=== PATIENT | male | born 1975 | race Caucasian/White ===

== ENCOUNTER 2022-03-12 15:16 | Emergency (ER) | payer OTHER, SELFPAY ==
--- NOTE | ~2022-03-12 | XR_ITS ---
XR chest 1V portable DATE: 03/12/2022 16:20 INDICATION: Fever. Weakness. TECHNIQUE: Portable AP chest on 03/12/2022 at 1621 hours COMPARISON: None FINDINGS: Heart size is within normal range. No pulmonary infiltrate or consolidation, pleural effusi on or pulmonary vascular congestion or pneumothorax. Included skeletal structures are unremarkable. IMPRESSION: No active cardiopulmonary disease Reviewed, dictated and finalized at location A.
[2022-03-12 15:25] VITALS: BP 129/84; PULSE 100; RESP 18; TEMP 37.2; O2SAT 97
--- NOTE | 2022-03-12 15:28 | ED.FEVER ---
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/hypertension, secondary hyperparathyroidism, chronic anemia, thyroid nodule,dyslipidemia was sent by his Delivery Director for evaluation of -- fever with chills for 1 day -- nausea 2 episodes of vomiting today MD elicited complaint: fever and malaise Onset (ago): hour(s) ( started 8 hours ago) Measured temperature: 98.9 C Exacerbating factors: nothing Relieving factors: nothing Associated symptoms: denies other symptoms, chills, nausea and vomiting Treatments prior to arrival fever: none Related Data Home Medications Medication Instructions Recorded Confirmed atenolol 25 mg PO DAILY 03/12/22 03/12/22 atorvastatin 20 mg PO DAILY 03/12/22 03/12/22 calcitriol 0.25 mcg PO DAILY 03/12/22 03/12/22 nifedipine 60 mg PO DAILY 03/12/22 03/12/22 tamsulosin 0.4 mg PO HS 03/12/22 03/12/22 Allergies Allergy/AdvReac Type Severity Reaction Status Date / Time No Known Allergies Allergy Verified 03/12/22 15:45 Review of Systems Review of Systems: All systems reviewed & are unremarkable except as noted in HPI and below Constitutional: Constitutional: Reports as per HPI and Reports no additional constitutional complaints Eyes: Eyes: Reports as per HPI and Reports no additional eye complaints ENT: Reports system reviewed and no additional complaints, except as documented and Reports as per HPI Cardiovascular: Cardiovascular: Reports as per HPI and Reports no additional cardiovascular complaints Respiratory: Respiratory: Reports as per HPI and Reports no additional respiratory complaints Gastrointestinal: Gastrointestinal: Reports as per HPI and Reports no additional gastrointestinal complaints Genitourinary: Genitourinary: Reports no additional male genitourinary complaints and Reports as per HPI Musculoskeletal: Musculoskeletal: Reports no additional musculoskeletal complaints and Reports as per HPI Comments: history of muscle spasms especially of the right leg Integumentary/Breasts: Skin/Breast: Reports system reviewed and no additional complaints, except as docu and Reports as per HPI Neurologic: Reports system reviewed and no additional complaints, except as documented and Reports as per HPI Psychiatric: Psychiatric: Reports no additional psychiatric complaints and Reports as per HPI Endocrine: Endocrine: Reports no additional endocrine complaints and Reports as per HPI Hematologic/Lymphatic: Hematologic/Lymphatic: Reports no additional hematologic/lymphatic complaints and Reports as per HPI Allergic/Immunologic: Allergic/Immunologic: Reports no additional allergic/immunologic complaints and Reports as per HPI [facility] Past Medical History Medical History (Updated 03/12/22 @ 17:27 by Allan Mckeon MD) Chronic anemia CKD (chronic kidney disease) Diabetes Dyslipidemia Hypertension Secondary hyperparathyroidism Thyroid nodule Surgical History Surgical History (Updated 03/12/22 @ 15:57 by Allan Mckeon MD) H/O knee surgery Exam Const: General: no acute distress and alert Orientation/consciousness: patient oriented x3 HENMT: Head: normal to inspection Ears: external ears normal and TM abnormal Face and sinus: sinuses nontender Mouth: Yes Normal oral and palatal mucosa present Eyes: Conjunctivae: conjunctivae normal Pupils: Equal, round and reactive pupils present EOM: EOMs intact bilaterally Neck: Neck: normal visual inspection, no lymphadenopathy and no meningeal signs Chest: Chest palpation & inspection: normal inspection of the chest Resp: Effort & Inspection: normal respiratory effort Auscultation: clear to auscultation bilaterally Cardio: Rate: regular rate Rhythm: regular rhythm GI: GI Palp:
--- NOTE | 2022-03-12 16:07 | ECG_ITS ---
Measurements Intervals [place] Rate: 87 P: 57 NH: 212 QRS: 3 QRSD: 91 T: 25 QT: 348 QTc: 420 Interpretive Statements SINUS RHYTHM WITH FIRST DEGREE AV BLOCK NONSPECIFIC T-WAVE ABNORMALITY NO PREVIOUS ECG AVAILABLE FOR COMPARISON Electronically Signed On 03-12-2022 20:09:20 CDT by Maddy Jacobs M.D.
[2022-03-12] MEDS: ACETAMINOPHEN 325 MG TABLET 650 MG PO (16:29)
[2022-03-12] MEDS: ONDANSETRON HCL ODT 4 MG TABLET PO (16:29)
[2022-03-12 16:33] LABS: Add Urine Microscopic? YES; Appearance Urine Clear (Clear); Basophils Absolute Auto 0.03 K/mm3 (0.00-0.10); Basophils Percent Auto 0.2 % (0.0-1.0); Bilirubin Urine Negative (Negative); Blood Urine 1+ (Negative); Color Urine Light Yellow (Yellow); Eosinophils Absolute Auto 0.05 K/mm3 (0.02-0.50); Eosinophils Percent Auto 0.4 % (1.0-6.0); Glucose Urine UA Trace (Negative); Hematocrit 37.2 % (40.0-54.0); Hemoglobin 12.5 g/dL (14.0-18.0); Immature Granulocyte Absolute 0.05 K/mm3 (0.00-0.00); Immature Granulocyte Percent A 0.4 % (0.0-0.0); Ketones Urine Negative (Negative); Leukocyte Esterase Ur Negative (Negative); Lymphocytes Absolute Auto 0.23 K/mm3 (1.10-4.50); Lymphocytes Percent Auto 1.7 % (18.0-42.0); Mean Corpuscular HGB Conc 33.6 g/dL (32.0-36.0); Mean Corpuscular Volume 89.2 fL (78.0-102.0); Mean Platelet Volume 10.6 fl (8.7-11.0); Monocytes Absolute Auto 0.57 K/mm3 (0.10-0.90); Monocytes Percent Auto 4.3 % (2.0-11.0); Neutrophils Absolute Auto 12.3 K/mm3 (1.7-7.2); Nitrate Urine Negative (Negative); Platelet Count Result 300 K/mm3 (150-420); Protein Urine Trace (Negative); Red Blood Count 4.17 M/mm3 (4.70-6.10); Red Cell Distribution Width 12.8 % (11.6-14.4); Specific Grav Ur 1.015 (1.010-1.020); Urobilinogen Urine 0.2 mg/dL (0.2-1.0); White Blood Count 13.3 K/mm3 (4.8-10.8)
[2022-03-12 16:39] LABS: Bacteria Urine Trace /hpf; RBC Urine 0-2 /hpf (0-2); Squamous Epithelial Cell Urine Rare /hpf (Few); WBC Urine None seen /hpf (0-3)
[2022-03-12 16:48] LABS: Alanine Aminotransferase 25 U/L (16-63); Albumin Level 4.1 g/dL (3.4-5.0); Alkaline Phosphatase 90 U/L (46-116); Anion Gap 13 mmol/L (8-16); Aspartate Amino Transferase 15 U/L (15-37); Bilirubin,Total 0.4 mg/dL (0.00-1.00); Blood Urea Nitrogen 57 mg/dL (7-18); Carbon Dioxide 20 mmol/L (21-32); Chloride 103 mmol/L (98-108); Estimated CRCL calculation 25 ml/min; Estimated Glomerular Filt Rate 23; Glucose 168 mg/dL (70-99); Lipase 127 U/L (73-393); Osmolality Calculated 301 mOsm/kg (285-295); Potassium 4.3 mmol/L (3.5-5.1); Sodium 136 mmol/L (136-145); Total Protein 7.9 g/dL (6.4-8.2); Troponin I 22.2 ng/L (0.00-60.4)
[2022-03-12 16:55] LABS: Calcium 8.3 mg/dL (8.5-10.1)
[2022-03-12 17:00] VITALS: BP 125/71; PULSE 89; RESP 18; TEMP 36.6; O2SAT 99
[2022-03-12 17:05] LABS: SARS-CoV-2 RNA PCR Negative (Negative)
[2022-03-12 17:07] LABS: Influenza A QL RT-PCR Negative (Negative); Influenza B QL RT-PCR Negative (Negative)
== END 2022-03-12 17:38 | disposition home or self-care (01) ==
PROVIDERS: Emergency Provider Internal Medicine Critical Care Medicine; PCP Physician Assistant
DX: E86.0 Dehydration (principal); N17.9 Acute kidney failure, unspecified; R11.2 Nausea with vomiting, unspecified; Z20.822 Contact with and (suspected) exposure to COVID-19
CPT/HCPCS: 36415; 71045; 80053; 81001; 83605; 83690; 84484; 85025; 87040; 87502; 93005; 99283; A9270; C9803; U0003; U0005

== ENCOUNTER 2025-04-04 07:11 | Outpatient (CLI) | payer OTHER, MEDICARE, SELFPAY ==
--- NOTE | ~2025-04-04 | PE_ITS ---
EXAMINATION: PET_PETPSMAST_PT DATE: 04/04/2025 10:04 INDICATION: Prostate cancer TECHNIQUE: 4.946 mCi of Illucix Ga-68([id number]) was administered i.v. Low dose computed robert graphy (CT) images were acquired from the base of the brain to the base of the brain to the proximal thighs for attenuation correction and anatomic localization. Positron emission tomography (PET) image s were acquired in the same distribution beginning 81 minutes after injection. Images including fused PET/CT images were reconstructed in axial, coronal, and sagittal planes. Automated exposure control technique was employed. The dose-length product was 1127.21mGy-cm. COMPARISON: None FINDINGS: Head/neck: Typical pattern of symmetric physiologic increased activity in the lacrimal, parotid and submandibula r glands as well as along the mucosa of the nasal and oral cavities, pharynx and hypopharynx. No path ologically enlarged cervical lymphadenopathy or suspicious foci of increased uptake in the visualized head or neck. Chest: Respiratory motion in the lungs with scattered discoid atelectasis in both lungs. No suspicious pulmo nary nodules, pneumonia, pulmonary edema or pleural effusion. Mild cardiomegaly.. Atherosclerotic cor onary artery calcifications. No pericardial effusion. Retroesophageal aberrant right subclavian arter y. No pathologically enlarged or PSMA avid thoracic lymphadenopathy. Abdomen/pelvis/proximal thighs: Physiologic renal accumulation and excretion of activity in the kidneys, bladder and along portions o f ureters. Photopenic defect associated with a 1.5 cm exophytic cyst at the lower pole of the right k idney. 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 There are a few additio nal photopenic defects in the transplant kidney which could be related to additional cysts or prior s carring. Prostatomegaly measuring 4.9 x 4.2 cm. There is mild uptake at the posterior aspect of the p rostate with maximal SUV of 4.3. Normal degree and slightly heterogenous pattern of increased uptake throughout the liver and spleen without radiologic correlate or dominant PSMA avid lesion. The gallbl adder, pancreas and bilateral adrenal glands are normal. Moderate uptake scattered throughout the bow els with typical duodenal and proximal jejunal predominance and without radiologic correlate, also li carolyn physiologic. Normal appendix. No other abnormal foci of increased uptake or pathologically enlar ged lymphadenopathy in the abdomen, pelvis or proximal thighs. Musculoskeletal: No suspicious lytic, blastic or abnormally PSMA avid bone lesions. IMPRESSION: 1. Mild activity in the posterior aspect of the enlarged prostate likely representing the site of marcus boaz prostate cancer. No evident metastatic disease. 2. 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 Reviewed, dictated and finalized at location A. IMPRESSION: 1. Mild activity in the posterior aspect of the enlarged prostate likely repres enting the site of primary prostate cancer. No evident metastatic disease. 2. 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
--- OUTSIDE RECORDS SUMMARY | 2025-04-04 07:16 | XMS_ITS | Clinical Summary ---
Author Organization [facility] Address [address] [place] [address] Phone Care Team Providers Care [place] Actor Name Role Phone Edi Ash Primary Care Provider [phone] Social History Tobacco Use Types Packs/Day Years Used Date Smoking Tobacco: Never Assessed Sex and Gender Information Value Date Recorded Sex Assigned at Not on file Legal Sex Male 9:20 PM CDT Gender Identity Not on file Sexual Orientation Not on file Plan of Treatment Health Maintenance Due Date Last Done Comments Hepatitis C Virus (HCV) Screening 1973 TdaP Immunization 1973 Hepatitis B Immunization (1 of 3 - 19+ 3-dose series) 1992 Colonoscopy 2018 Colorectal Cancer Screening 2018 Cologuard 2023 Immunochemical Fecal Occult Blood 2023 Pneumococcal Immunization (5 0+ years) (1 of 1 - PCV) 2023 Zoster Immunization (1 of 2) 2023 Influenza Immunization (#1) 2024 SARS-COV-2 Immunization (3 - 2023-25 season) 2024 03/15/2021, 02/15/2021 Respiratory Syncytial Virus (RSV) Immunization (Adult) (1 - 1-dose 75+ series) 2048 Meningococcal Immunization (ACWY) Aged Out No longer eligible b ased on patient's age to complete this topic Rotavirus Immunization Aged Out No lo nger eligible based on patient's age to complete this topic Care Teams [place] Actor Relationship Specialty Start Date End Date Edi Ash PAC [address] [place] [id number] PCP - General Physician Machinist Wood 10/09/21
--- OUTSIDE RECORDS SUMMARY | 2025-04-04 07:17 | XMS_ITS | Encounter Summary ---
Author Organization [facility] Address [address] [place] [address] Phone Care Team Providers Care Electrician Supervisor Name Role Phone Edi Ash Primary Care Provider [phone] Encounter Details Date Type Department Care Team (Late st Contact Info) Description 10/08/2021 Transcribe Orders [facility] Central Scheduling [address] [place] [address] Param Pennington MD [address] [place] [address] [address] Social History Tobacco Use Types Packs/Day Years Used Date Smoking Tobacco: Never Assessed Sex and Gender Information Value Date Recorded Sex Assigned at Not on file Legal Sex Male 9:20 PM CDT Gender Identity Not on file Sexual Orientation Not on file documented as of this encounter Plan of Treatment Not on file documented as of this encounter Visit Diagnoses Not on filedocumented in this encounter Care Teams Electrician Supervisor Relationship Specialty Start Date End Date Edi Ash PAC [address] [place] [id number] PCP - General Physician Wellness Coordinator 10/09/21 documented as of this encounter
--- OUTSIDE RECORDS SUMMARY | 2025-04-04 07:17 | XMS_ITS | Clinical Summary ---
Author Organization [facility] Building [address] Address [address] [place] [address] Care Team Providers Care Agent Contract Clerk Name Role Phone Edi Ash Primary Care Provider [phone] Jonathan Meyer MD Unavailable [phone] Claudia Rahman RN Unavailable Unava ilable Allergies Active Allergy Reactions Criticality Noted Date Comments Cephalexin Rash,Chills Medium 08/25/2023 Per mother, found out when he had transplant Penicillins Rash Medium Per mother, happened when patient was an Medications tamsulosin (FLOMAX) 0.4 mg extended release capsule TAKE ONE CAPSULE BY MOUTH EVERY DAY WITH DINNER 30 capsule 3 Active Senna Plus 8.6-50 mg TAKE ONE TABLET BY MOUTH EVERY DAY 30 tablet 4 Active cholecalcifero l (VITAMIN D-3) 2000 unit tablet TAKE ONE TABLET BY MOUTH EVERY DAY 30 tablet 4 Active carvediloL (COREG) 6.25 mg tablet TAKE ONE TABLET BY MOUTH TWICE A DAY WITH MEALS 60 tablet 4 Active aspirin 81 mg enteric coated tablet TAKE ONE TABLET BY MOUTH EVERY DAY 30 tablet 4 Active NIFEdipine CC 60 mg 24 hr tabletIndicati ons:Kidney replaced by transplant TAKE 1 TABLET BY MOUTH 2 TIMES A DAY 60 tablet 4 Active predniSONE (DELTASONE) 5 mg tablet TAKE ONE TABLET BY MOUTH EVERY DAY. START AFTER TAPER 30 tablet 11 4 Active magnesium oxide (MAG-OX) 400 mg (241.3 mg elemental magnesium) tablet TAKE ONE TABLET BY MOUTH EVERY DAY 30 tablet 11 4 Active Envarsus XR 1 mg tablet extended release 24 hr TAKE TWO TABLETS BY MOUTH EVERY DAY 60 tablet 11 5 Active atorvastatin (LIPITOR) 20 mg tabletIndicati ons:Type 2 diabetes mellitus without complication, with long-term current use of insulin (HCC) TAKE ONE TABLET BY MOUTH EVERY DAY 90 tablet 3 5 Active ciprofloxacin (CIPRO) 500 mg tablet Take 1 tablet (500 mg total) by mouth 2 (two) times a day 6 tablet 5 Active Additional Information Patient not taking.Reported on 03/20/2025 clindamycin (CLEOCIN) 300 mg capsule Take 1 capsule (300 mg total) by mouth 2 (two) times a day 6 capsule 5 Active Additional Information Patient not taking.Reported on 03/20/2025 tirzepatide (Mounjaro) 5 mg/0.5 mL pen injector injectionIndic ations:type 2 diabetes mellitus Inject 0.5 mL (5 mg total) under the skin every 7 days For 4 doses and then increase to mounjaro 7.5mg weekly. E11.65 2 mL 5 Active tirzepatide (Mounjaro) 2.5 mg/0.5 mL pen injector injectionIndic ations:type 2 diabetes mellitus Inject 0.5 mL (2.5 mg total) under the skin every 7 days For 4 weeks. Then increase to mounjaro 5mg weekly. E11.65 2 mL 5 Active tirzepatide (MOUNJARO) 7.5 mg/0.5 mL pen injector injectionIndic ations:type 2 diabetes mellitus Inject 0.5 mL (7.5 mg total) under the skin every 7 days E11.65 2 mL 11 5 Active empagliflozin (JARDIANCE) 25 mg tabletIndicati ons:type 2 diabetes mellitus Take 1 tablet (25 mg total) by mouth daily E11.65 90 tablet 4 5 Active empagliflozin (JARDIANCE) 10 mg tabletIndicati ons:type 2 diabetes mellitus Take 1 tablet (10 mg total) by mouth daily E11.9 90 tablet 4 4 03/20/20 25 Discontin ued(Reord er) Active Problems Patient Care Coordination No te Formatting of this note migh t be different from the original. [facility]acy: 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 Weight gain since last office visit Encouraged healthy eating which includes a low carb diet. Avoiding processed foods, sweets and fried foods. Encouraged 30 minutes of walking at least 5 days per week Discussed that exercise can be broken down into small sessions- for example 2- 15 minutes sessions or 3- 10 minutes sessions. Assessment & Plan (07/06/2024 12:58 PM CDT): This is a chronic condition which continues Eight lbs. Weight loss since last office visit Encouraged healthy eating which includes a low carb diet. Avoiding processed foods, sweets and fried foods. Encouraged 30 minutes of walking at least 5 days per week Discussed that exercise can be broken down into small sessions- for example 2- 15 minutes sessions or 3- 10 minutes sessions. Assessment & Plan (03/17/2024 12:31 PM CDT): This is a chronic condition which continues Twenty lbs. Weight loss since last office visit Encouraged healthy eating which includes a low carb diet. Avoiding processed foods, sweets and fried foods. Encouraged 30 minutes of walking at least 5 days per week He has eating a keto diet to promote weight loss Assessment & Plan (12/17/2023 2:31 PM HAZARDOUS SUBSTANCES ENGINEER): This is a chronic condition which has improved 15 lb weight loss since last office visit Eating 3 meals 50 carbs each meal Encouraged continue healthy eating and exercise Kidney replaced by transplant 12/01/2023 Encounter for aftercare following kidney transpl ant 10/06/2023 Encounter for long-term (cur rent) use of high-risk medication 10/06/2023 Removal of staple 09/22/2023 Kidney transplanted 09/22/2023 Immunosuppression 09/22/2023 Kidney donor 07/10/2023 ESRD (end stage renal disease) 07/10/2023 Anemia 05/23/2021 Assessment & Plan (03/16/2023 3:14 PM CDT): This is a chronic condition which continues due to his stage 5 chronic kidney disease Not on dialysis Follows Dr. Pennington Latest Reference Range & Units 01/10/23 08:45 WBC 3.8 - 9.9 K/cumm 9.8 Hgb 13.0 - 17.5 g/dL 12.0 (L) Hct 38.9 - 50.3 % 35.8 (L) Plt 150 - 400 K/cumm 260 MPV 9.1 - 12.3 fL 10.5 RBC 4.30 - 5.80 M/cumm 4.09 (L) (L): Data is abnormally low Mixed diabetic hyperlipidemi a associated with type 2 diabetes mellitus 08/20/2020 Assessment & Plan (10/18/2024 9:09 AM HAZARDOUS SUBST[employer]ES ENGINEER): This is a chronic condition which is slightly elevated . Goal is LDL less than 70 Continue atorvastatin Encouraged to eat healthy, include fresh fruits and vegetables daily and avoid eating fried foods more than once per week. Assessment & Plan (07/06/2024 12:57 PM CDT): This is a chronic condition which is at goal . Goal is LDL less than 70 Continue atorvastatin Encouraged to eat healthy, include fresh fruits and vegetables daily and avoid eating fried foods more than once per week. Assessment & Plan (03/17/2024 12:30 PM CDT): This is a chronic condition which is not at goal . Goal is LDL less than 70 Continue atorvastatin Encouraged to eat healthy, include fresh fruits and vegetables daily and avoid eating fried foods more than once per week. Encouraged to take medications as prescribed. Assessment & Plan (12/17/2023 2:27 PM HAZARDOUS SUBSTANCES ENGINEER): This is a chronic condition which is at goal of LDL less than 70 Continue atorvastatin Encouraged to eat healthy, include fresh fruits and vegetables daily and avoid eating fried foods more than once per week. Encouraged to take medications as prescribed. Assessment & Plan (09/16/2023 3:12 PM CDT): This is a chronic condition which is not at goal of LDL less than 70 Continue atorvastatin Encouraged to eat healthy, include fresh fruits and vegetables daily and avoid eating fried foods more than once per week. Encouraged to take medications as prescribed. Assessment & Plan (06/16/2023 1:58 PM CDT): This is a chronic condition which is at goal of LDL less than 70 Continue atorvastatin Encouraged to eat healthy, include fresh fruits and vegetables daily and avoid eating fried foods more than once per week. Encouraged to take medications as prescribed. Assessment & Plan (03/16/2023 3:09 PM CDT): This is a chronic condition which is at goal of LDL less than 70 Continue atorvastatin Encouraged to eat healthy, include fresh fruits and vegetables daily and avoid eating fried foods more than once per week. Encouraged to take medications as prescribed. Assessment & Plan (12/16/2022 1:52 PM HAZARDOUS SUBSTANCES ENGINEER): This is a chronic condition which is at goal of less than 70. Personally reviewed lipid panel. LDL-67. contine atorvastatin 20 mg daily . Encouraged to eat healthy, include fresh fruits and vegetables daily and avoid eating fried foods more than once per week. Encouraged to take medications as prescribed. Assessment & Plan (09/15/2022 3:41 PM CDT): This is a chronic condition which is at goal. Goal is less than 70. Personally reviewed lipid panel. LDL-67contine atorvastatin 20 mg daily . Encouraged to eat healthy, include fresh fruits and vegetables daily and avoid eating fried foods more than once per week. Encouraged to take medications as prescribed. Assessment & Plan (05/23/2022 2:54 PM CDT): This is a chronic condition which is at goal. Goal is less than 70. Personally reviewed lipid panel. LDL-58 contine atorvastatin 20 mg daily . Encouraged to eat healthy, include fresh fruits and vegetables daily and avoid eating fried foods more than once per week. Encouraged to take medications as prescribed. Assessment & Plan (04/28/2022 4:31 PM CDT): LDL 58 4 months ago Continue home Lipitor Assessment & Plan (11/22/2021 9:33 AM HAZARDOUS SUBSTANCES ENGINEER): This is a chronic condition which is at goal. Goal is less than 70. Personally reviewed lipid panel. 49, LDL on atorvastatin 20 mg daily . Encouraged to eat healthy, include fresh fruits and vegetables daily and avoid eating fried foods more than once per week. Encouraged to take medications as prescribed. Repeat lipid panel. Assessment & Plan (05/22/2021 10:17 AM CDT): This is a chronic condition which is at goal. Goal is less than 70. Personally reviewed lipid panel. -at last visit, LDL did not register on POC testing. on atorvastatin 20 mg daily . Encouraged to eat healthy, include fresh fruits and vegetables daily and avoid eating fried foods more than once per week. Encouraged to take medications as prescribed. Repeat lipid panel. Assessment & Plan (02/13/2021 7:53 PM CDT): This is a chronic condition which is improving,below goal of less than 70 Reviewed labs. Encouraged to eat healthy, include fresh fruits and vegetables daily and avoid eating fried foods more than once per week. Personally reviewed LDL -did not register on POC testing. decrease atorvastatin 20 mg daily . Assessment & Plan (11/14/2020 6:00 PM HAZARDOUS SUBST[employer]ES ENGINEER): This is a chronic condition which is improving, but not at goal. Reviewed labs. Encouraged to eat healthy, include fresh fruits and vegetables daily and avoid eating fried foods more than once per week. Please take medications as prescribed. LDL - 156 (07/31/20), currently on atorvastatin 80 mg daily Continue to loose weight. Assessment & Plan (08/20/2020 12:56 PM CDT): This is a chronic condition which is stable, controlled, uncontrolled with hyperglycemia, improving, but not at goal. Reviewed labs. Encouraged to eat healthy, include fresh fruits and vegetables daily and avoid eating fried foods more than once per week. Please take medications as prescribed. LDL - 156 (07/31/20), currently on atorvastatin 80 mg daily Continue to loose weight. Type 2 diabetes mellitus wit hout complication, with long-term current use of insulin 12/07/2017 Assessment & Plan (10/18/2024 9:42 AM HAZARDOUS SUBSTANCES ENGINEER): This is a chronic condition which is at goal, without hypoglycemia . Goal is less than 7%. Personally reviewed most recent A1c - Lab Results Component Value Date HGBA1C 6.2 (H) 09/06/2024 Personally reviewed POC blood sugar- at goal of 80-180 Lab Results Component Value Date POCGLU 170 10/18/2024 Medication-none Monitor blood sugar 2 times a day. -may test more to help control eating Encouraged annual eye exam. Monofilament foot exam completed. Protective senses -intact eGFR- 78 Kidney function-normal. Post kidney transplant. Sibling donor Urine microalbumin/creatinine ratio - needed. Goal is <30 Continue carvedilol, nifedipine. not treated with KT/ARB Assessment & Plan (07/06/2024 12:56 PM CDT): This is a chronic condition which is at goal with hypoglycemia . Goal is less than 7%. Personally reviewed most recent A1c - Lab Results Component Value Date HGBA1C 6.1 07/06/2024 Personally reviewed POC blood sugar- at goal of 80-180 Lab Results Component Value Date POCGLU 104 07/06/2024 Medication- stop insulin Monitor blood sugar daily alternating am and pm. Encouraged annual eye exam. Monofilament foot exam completed. Protective senses intact. eGFR- 62 Kidney function-normal Urine microalbumin/creatinine ratio - at goal. Goal is <30 Continue carvedilol, nifedipine Assessment & Plan (03/17/2024 12:30 PM CDT): This is a chronic condition which is at goal . Goal is less than 7% with hypoglycemia. Personally reviewed most recent A1c - Lab Results Component Value Date HGBA1C 6.3 03/17/2024 Personally reviewed POC blood sugar- at goal of 80-180 Lab Results Component Value Date POCGLU 111 03/17/2024 Medication- decrease levemir 10 units daily pm. Will be switching to tresiba per his insurance formulary. Has 1 levemir pen left. Instructed to decrease tresiba to 8 units once he switches over due to the longer action time. Verbalized understanding. Monitor blood sugar 2-4 time times a daily Encouraged annual eye exam. Monofilament foot exam completed. Protective senses intact Personally reviewed CMP eGFR- 69 Kidney function-abnormal. Sees Dr. Pennington for Nephrology. Kidney transplant 09/01/ Urine microalbumin/creatinine ratio - at goal. Goal is <30 Continue carvedilol. not treated with KT/ARB B/P today- at goal . Goal is <140/90. continue carvedilol Assessment & Plan (12/17/2023 2:27 PM HAZARDOUS SUBST[employer]ES ENGINEER): This is a chronic condition which is at goal of less than 7%. Personally reviewed most recent A1c - Lab Results Component Value Date HGBA1C 6.3 12/17/2023 Personally reviewed POC blood sugar- at goal 80-180 Lab Results Component Value Date POCGLU 140 12/17/2023 Medication- Continue levemir 15 units daily Monitor blood sugar 4 times a day. Encouraged annual eye exam. Monofilament foot exam completed. protective senses intact Personally reviewed CMP eGFR-76 Kidney function- abnormal . Status post kidney transplant sees Dr. Pennington for Nephrology Urine microalbumin/creatinine ratio - not at goal <30 not treated with Kt or Arb, treated with nifedipine, carvedilol B/P today- at goal of <140/90. continue nifedipine, carvedilol Personally reviewed lipid panel. at Goal of less than 70. Continue atorvastatin Assessment & Plan (09/16/2023 3:14 PM CDT): This is a chronic condition which is adequately controlled improving , but not at goal of less than 7% as per fingerstick blood sugars. Currently weaning from prednisone as he is 2 weeks postop from a kidney transplant. Documented blood sugars are acceptable Discussed as prednisone continues to wean that blood sugars will improve. Insulin will have to be reduced. Sarkis has titrated insulin down before so he is aware. Encouraged him to call me for fluctuations in blood sugar. Discussed that in the end he may wind up off of insulin or possibly just on an oral medication. We will have to wait and see. He verbalized understanding Personally reviewed most recent A1c - Lab Results Component Value Date HGBA1C 9.4 (H) 07/13/2023 Personally reviewed POC blood sugar- not at goal 80-180 Lab Results Component Value Date POCGLU 100 09/16/2023 Medication- Continue continue levemir 20 units daily pm. Humalog 5 units prior to meals with correctional insulin- 150-199: 1 unit, 200-249: 2 units, 250-299: 3 units, 300-349: 4 units, 350 or greater: 5 units Monitor blood sugar 4 times a day. Encouraged annual eye exam. Monofilament foot exam completed. protective senses intact Personally reviewed CMP eGFR- 62- 2 weeks post kidney transplant Kidney function- abnormal Urine microalbumin/creatinine ratio - at goal <30 not treated with KT/ARB, treated with nifedipine and carvedilol B/P today- at goal of <140/90. continue nifedipine/carvedilol Personally reviewed lipid panel. Not at Goal of less than 70. Continue atorvastatin Assessment & Plan (06/16/2023 2:01 PM CDT): This is a chronic condition which is poorly controlled, not at goal of less than 7% due to lack of compliance with his insulin. Personally reviewed most recent A1c - Lab Results Component Value Date HGBA1C 9.3 06/16/2023 Personally reviewed POC blood sugar- at goal 80-180 Lab Results Component Value Date POCGLU 119 06/16/2023 Medication- Continue Levemir 15 units daily. Encouraged to take insulin as prescribed. Monitor blood sugar 2 times a day. Encouraged annual eye exam. Monofilament foot exam completed. protective senses intact Personally reviewed CMP eGFR- 23 Kidney function- abnormal - sees Dr. Pennington for Nephrology Urine microalbumin/creatinine ratio - at goal <30 not treated with Kt or Arb, treated with atenolol, hydrochlorothiazide, nifedipine B/P today- at goal of <140/90. continue atenolol, hydrochlorothiazide, nifedipine Personally reviewed lipid panel. at Goal of less than 70. Continue atorvastatin Assessment & Plan (03/16/2023 3:07 PM CDT): This is a chronic condition which is poorly controlled worsening not at goal of less than 7%. Personally reviewed most recent A1c - Lab Results Component Value Date HGBA1C 9.8 03/16/2023 Explained that hyperglycemia will only cause a faster progression of his kidney disease. Explained that he needs to get these blood sugars back under control. Personally reviewed POC blood sugar- not at goal 80-180 Lab Results Component Value Date POCGLU 316 03/16/2023 Medication-Increase Levemir 15 units a day Monitor blood sugar 2 times a day. Call blood sugars in 1 week Encouraged annual eye exam. Monofilament foot exam completed. protective senses intact Urine microalbumin/creatinine ratio - at goal <30 not treated with KT/ARB Personally reviewed CMP eGFR- 23 Kidney function- abnormal B/P today-at goal of <140/90. continue Nifedipine, hydrochlorothiazide, atenolol Personally reviewed lipid panel. at Goal of less than 70. Continue atorvastatin Assessment & Plan (12/16/2022 1:51 PM HAZARDOUS SUBST[employer]ES ENGINEER): This is a chronic condition which is worsening, inadequately controlled, not at goal. Personally reviewed A1c increased to 8.7%. Not at goal less than 7%. POC blood sugar- 138- at goal. Medication- increase levemir 12 units daily am. Monitor blood sugar daily- record results. 2 x daily and call blood sugars in 1 week. Encouraged annual eye exam. last dilated eye exam was at [facility]. Monofilament foot exam completed, protective senses intact. Urine microalbumin/creatinine ratio - <30, at goal of <30 normal. continue atenolol Personally reviewed labs:BUN-41 creatinine- 3.23 GFR-23 Kidney function-abnormal. Sees Dr. Pennington. B/P today- at goal <140/90. Continue Atenolol, HCTZ and nifedipine. Encouraged to monitor blood pressure daily. Personally reviewed LDL -67. below Goal of less than 70. Continue atorvastatin. No history of macrovascular disease - CVA, OR. Assessment & Plan (09/15/2022 3:40 PM CDT): This is a chronic condition which is not at goal. Personally reviewed A1c increased to 7.7% goal less than 7% without hypoglycemia. POC blood sugar- 109- at goal. Has not eaten today. Medication- start levemir 8 units daily am. Monitor blood sugar daily- record results. 2 x daily Encouraged annual eye exam. last dilated eye exam was at [facility]. Monofilament foot exam completed, protective senses intact. Urine microalbumin/creatinine ratio - <30, at goal of <30 normal. currently on atenolol 25mg daily am Personally reviewed labs:BUN-41 creatinine- 3.23 GFR-23 Kidney function-abnormal. Sees Dr. Pennington. B/P today- at goal. Continue Atenolol, HCTZ and nifedipine. At Goal blood pressure is <140/90. Encouraged to monitor blood pressure daily. Personally reviewed LDL -67. on atorvastatin 20 mg daily . below Goal of less than 70. No history of macrovascular disease - CVA, OR. Assessment & Plan (02/20/2022 9:00 AM CDT): This is a chronic condition which has increased But still below goal. Personally reviewed A1c 6.8% Below goal less than 7% without hypoglycemia. Personally reviewed blood sugar log- Medication- none Monitor blood sugar daily- record results. 1-2 x daily Encouraged annual eye exam. last dilated eye exam was April 2020 Monofilament foot exam completed, protective senses intact Urine microalbumin/creatinine ratio - <30, at goal of <30 normal. currently on atenolol 25mg daily am Personally reviewed labs:BUN-44, creatinine- 2.59 GFR- 28 Kidney function-abnormal. Sees Dr. Pennington. B/P today- 138/76 currently on atenolol. At Goal blood pressure is <140/90, Personally reviewed LDL -49. on atorvastatin 20 mg daily . below Goal of less than 70. Lab repeated. No history of macrovascular disease - CVA, OR. Assessment & Plan (11/22/2021 9:28 AM HAZARDOUS SUBSTANCES ENGINEER): This is a chronic condition which has increased But still below goal. Personally reviewed A1c 6.8% Below goal less than 7% without hypoglycemia. Personally reviewed blood sugar log- Medication- none Monitor blood sugar daily- record results. 1-2 x daily Encouraged annual eye exam. last dilated eye exam was April 2020 Monofilament foot exam completed, protective senses intact Urine microalbumin/creatinine ratio - <30, at goal of <30 normal. currently on atenolol 25mg daily am Personally reviewed labs:BUN-44, creatinine- 2.59 GFR- 28 Kidney function-abnormal. Sees Dr. Pennington. B/P today- 138/76 currently on atenolol. At Goal blood pressure is <140/90, Personally reviewed LDL -49. on atorvastatin 20 mg daily . below Goal of less than 70. Lab repeated. No history of macrovascular disease - CVA, OR. Assessment & Plan (05/22/2021 10:15 AM CDT): This is a chronic condition which is stable and below goal. Personally reviewed A1c 5.5% Below goal less than 7% without hypoglycemia. Personally reviewed blood sugar log- Medication- continue janumet 100mg/1000mg daily. Monitor blood sugar daily- record results. 1-2 x daily Encouraged annual eye exam. last dilated eye exam was April 2020 Monofilament foot exam completed, protective senses intact Urine microalbumin/creatinine ratio - <30, at goal of <30 normal. currently on lisinopril 40 mg daily, HCTZ 25, norvasc 5mg daily, Personally reviewed labs: (10/05) BUN-26, creatinine- 1.10 GFR- 80 Kidney function- normal B/P today- 116/60 currently on lisinopril, amlodipine and HCTZ. At Goal blood pressure is <140/90, Personally reviewed LDL -at last visit, LDL did not register on POC testing. on atorvastatin 20 mg daily . below Goal of less than 70 history of macrovascular disease - CVA, OR. Assessment & Plan (02/13/2021 7:52 PM CDT): This is a chronic condition which is improving, stable and below goal. Personally reviewed A1c 5.2% Below goal less than 7% without hypoglycemia. Personally reviewed blood sugar log- Much improved. blood sugar today at goal of 80-117 Medication- Stop Metformin 1000mg twice a day, start Januvia 100mg daily, Start janumet 100mg/1000mg daily. Monitor blood sugar daily- record results. Encouraged annual eye exam. last dilated eye exam was April 2020 Monofilament foot exam completed, protective senses intact Urine microalbumin/creatinine ratio - <30, at goal of <30 normal currently on lisinopril 20 mg daily, HCTZ 25, norvasc 5mg daily, Personally reviewed labs: BUN-26, creatinine- 1.10 GFR- 80 Kidney function- normal B/P today- 110/62, currently on lisinopril, amlodipine Goal blood pressure is <140/90, Personally reviewed LDL -did not register on POC testing. decrease atorvastatin 20 mg daily . below Goal of less than 70 history of macrovascular disease - CVA, OR. Assessment & Plan (11/14/2020 5:59 PM HAZARDOUS SUBST[employer]ES ENGINEER): This is a chronic condition which is uncontrolled with hyperglycemia, improving, but not at goal. Personally reviewed A1c 7.9% goal less than 7% Personally reviewed blood sugar log- Much improved. blood sugar today at goal of 80-180 Medication- Metformin 1000mg twice a day, start Januvia 100mg daily Add B complex vitamin with B3, B6, and B12 - for foot pain Monitor blood sugar daily- record results. Encouraged annual eye exam. last dilated eye exam was April 2020 Monofilament foot exam completed, protective senses intact Urine microalbumin/creatinine ratio - <30, at goal of <30 normal currently on lisinopril 20 mg daily, HCTZ 25, norvasc 5mg daily, Personally reviewed labs: BUN-26, creatinine- 1.10 GFR- 80 Kidney function- normal B/P today- 118/62, currently on lisinopril, amlodipine Goal blood pressure is <140/90, Personally reviewed LDL - 58, currently on atorvastatin 80 mg daily . Goal of less than 70 history of macrovascular disease - CVA, OR. 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 Personally reviewed A1c from 08/05- 12.2% goal less than 7% Personally reviewed blood sugar log- Much improved. Medication- Decrease lantus 10 units daily Continue Metformin 500mg in am and take 500 mg in pm for 1 week In one week, take Metformin 1000mg in and 500 mg in the pm for 1 week Then take Metformin 1000mg in am and 1000mg in pm Add B complex vitamin with B3, B6, and B12 - for foot pain Monitor blood sugar daily- record results. Encouraged annual eye exam. last dilated eye exam was April 2020 Monofilament foot exam completed, protective senses intact Abnormal Urine microalbumin/creatinine ratio - 80. Will repeat at next visit. currently on lisinopril 20 mg daily, HCTZ 25, norvasc 5mg daily, Personally reviewed labs: BUN-26, creatinine- 1.10 GFR- 80 Kidney function- normal B/P today- 110/60, currently on lisinopril, amlodipine Goal blood pressure is <140/90, long-term blood pressure goal is to be as close to 120/80 as possible. Personally reviewed LDL - 58, currently on atorvastatin 80 mg daily . Goal of less than 70 history of macrovascular disease - CVA, OR. Assessment & Plan (08/20/2020 1:10 PM CDT): This is a chronic condition which is improving. Labs reviewed. A1c 12.2 08/14/2020, 07/30/2020- 12.5 Medication- Continue Lantus 15 units daily. Stop Humalog insulin. Will continue insulin for now due to excessively high A1c, Return to office in 6 weeks. Repeat CMP prior to appt. We will consider returning to oral medications if kidney function is stable. Blood sugars in good range now. Monitor blood sugar 2 times a day. last dilated eye exam was completed in [facility], 2 weeks ago. Monofilament foot exam completed, protective senses intact Urine microalbumin/creatinine ratio - abnormal currently lisinopril 20 mg daily 08/07/2020 Kidney function eGRF- 64, BUN- 23, creatinine- 1.321 BP today- 130/82 , currently on lisinopril 20 mg po daily, amlodipine 5mg po daily LDL - 156 (07/31/20), currently on atorvastatin 80 mg daily No history of macrovascular disease - CVA, OR. Continue on 60 gm/meal low carb diet Continue to loose weight. Assessment & Plan (08/20/2020 12:49 PM CDT): This is a chronic condition which is improving. Labs reviewed. A1c 12.2 08/14/2020, 07/30/2020- 12.5 Medication- Continue Lantus 15 units daily. Stop Humalog insulin. Will continue insulin for now due to excessively high A1c, Return to office in 6 weeks. Repeat CMP prior to appt. We will consider returning to oral medications. Blood sugars in good range now. Monitor blood sugar 2 times a day. last dilated eye exam was completed in [facility], 2 weeks ago. Monofilament foot exam completed, protective senses intact Urine microalbumin/creatinine ratio - abnormal currently lisinopril 20 mg daily 08/07/2020 Kidney function eGRF- 64, BUN- 23, creatinine- 1.321 BP today- 130/82 , currently on lisinopril 20 mg po daily LDL - 156 (07/31/20), currently on atorvastatin 80 mg daily No history of macrovascular disease - CVA, OR. Assessment & Plan (08/07/2020 12:19 PM CDT): Glucose 201 on presentation to ER but glucose levels now improved. Will continue home Lantus with sliding scale insulin as needed. Hold home metformin due to elevated creatinine. Will adjust treatment as needed. 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 Goal is less than 140/90 Continue carvedilol, nifedipine Encouraged to monitor weight and B/P at home. Assessment & Plan (07/06/2024 12:57 PM CDT): This is a chronic condition which is at goal. Goal is less than 140/90 Continue nifedipine, carvedilol Encouraged to monitor weight and B/P at home. Encouraged to void caffeine and excessive alcohol consumption as this will elevate B/P Assessment & Plan (03/17/2024 12:31 PM CDT): This is a chronic condition which is at goal. Goal is less than 140/90 Personally reviewed labs. Continue carvedilol Encouraged to monitor weight and B/P at home Encouraged to take medications as prescribed. Assessment & Plan (12/17/2023 2:28 PM HAZARDOUS SUBSTANCES ENGINEER): This is a chronic condition which is at goal of less than 140/90 Personally reviewed labs. Continue carvedilol, nifedipine Encouraged to monitor weight and B/P at home Encouraged to take medications as prescribed. Assessment & Plan (09/16/2023 3:12 PM CDT): This is a chronic condition which is at goal of less than 140/90 Personally reviewed labs. Continue nifedipine and carvedilol Encouraged to monitor weight and B/P at home Encouraged to take medications as prescribed. Assessment & Plan (06/16/2023 1:58 PM CDT): This is a chronic condition which is at goal of less than 140/90 Personally reviewed labs. Continue atenolol, hydrochlorothiazide, nifedipine Encouraged to monitor weight and B/P at home Encouraged to take medications as prescribed. Assessment & Plan (03/16/2023 3:08 PM CDT): This is a chronic condition which is at goal of less than 140/90 Personally reviewed labs. Continue nifedipine, hydrochlorothiazide, atenolol Encouraged to void caffeine and excessive alcohol consumption as this will elevate B/P Encouraged to monitor weight and B/P at home Explained correct way to take blood pressure. - After 5 minutes of sitting calmly with arm supported. Encouraged to take medications as prescribed. Assessment & Plan (12/16/2022 1:51 PM HAZARDOUS SUBST[employer]ES ENGINEER): This is a chronic condition which is at goal of less than 140/90 Personally reviewed labs. Continue on atenolol, HCTZ, nifedipine. Encouraged to void caffeine and excessive alcohol consumption as this will elevate B/P Encouraged to monitor weight and B/P at home Explained correct way to take blood pressure. - After 5 minutes of sitting calmly with arm supported. Encouraged to take medications as prescribed. Assessment & Plan (09/15/2022 3:41 PM CDT): This is a chronic condition which is at goal Personally reviewed labs. Continue on atenolol, HCTZ, nifedipine. Encouraged to void caffeine and excessive alcohol consumption as this will elevate B/P Encouraged to monitor weight and B/P at home Explained correct way to take blood pressure. - After 5 minutes of sitting calmly with arm supported. Encouraged to take medications as prescribed. Assessment & Plan (04/28/2022 4:30 PM CDT): Home med Nifedipine and atenolol have been resumed HCTZ is on hold as pt is on iv fluids BP is wnl at this time, continue to monitor Assessment & Plan (11/22/2021 9:32 AM HAZARDOUS SUBSTANCES ENGINEER): This is a chronic condition which is at goal Goal is <140/90 Personally reviewed labs. B/P today- 138/76 currently on atenolo. At Goal blood pressure is <140/90, Avoid caffeine, caffeine will raise blood pressure and excessive alcohol consumption. Monitor your weight and B/P. Encouraged to take medications as prescribed. Assessment & Plan (05/22/2021 10:16 AM CDT): This is a chronic condition which is at goal Goal is <140/90 Personally reviewed labs. B/P today- 116/60 currently on lisinopril, amlodipine and HCTZ. At Goal blood pressure is <140/90, Avoid caffeine, caffeine will raise blood pressure and excessive alcohol consumption. Monitor your weight and B/P. Encouraged to take medications as prescribed. Assessment & Plan (11/14/2020 6:01 PM HAZARDOUS SUBST[employer]ES ENGINEER): This is a chronic condition and is stable, controlled, at goal. Goal is less than 140/90. Reviewed labs. Avoid caffeine, caffeine will raise blood pressure and excessive alcohol consumption. Monitor your weight and B/P. Please take medications as prescribed. BP today- 118/62 , currently on lisinopril 20 mg po daily, amlodipine 5mg po daily Assessment & Plan (08/20/2020 1:09 PM CDT): This is a chronic condition and is stable, controlled, at goal. Reviewed labs. Avoid caffeine, caffeine will raise blood pressure and excessive alcohol consumption. Monitor your weight and B/P. Please take medications as prescribed. BP today- 130/82 , currently on lisinopril 20 mg po daily, amlodipine 5mg po daily Assessment & Plan (08/07/2020 12:20 PM CDT): Blood pressure presently stable but will need to hold home HCTZ and lisinopril given creatinine level. If blood pressure increases, will need other medication and could start medications such as amlodipine. Resolved Problems Problem Noted Date Diagnosed Date Resolved Date Screening for colon cancer 07/11/2022 0 03/16/2023 Overview (07/11/2022): Added automatically from request for surgery [id number] COVID-19 04/27/2022 03/16/2023 Assessment & Plan (04/28/2022 4:28 PM CDT): Pt noted with fevers, no hypoxia noted CXR negative for infiltrates Will check inflammatory markers Continue supportive management with tylenol Contact precautions per hospital protocol Type 2 diabetes mellitus wit h ESRD (end-stage renal disease) 02/20/2022 09/15/2022 Assessment & Plan (05/23/2022 2:54 PM CDT): This is a chronic condition which is not at goal. Personally reviewed A1c increased to 7.4% goal less than 7% without hypoglycemia. POC blood sugar- 189- not at goal Medication- add sitagliptin 25 mg (renal dose) po daily Monitor blood sugar daily- record results. 1-2 x daily Encouraged annual eye exam. last dilated eye exam was April 2020 Monofilament foot exam completed, protective senses intact. Discussed diabetic foot care. Referred to [facility] for foot care. Nail fungus noted. Urine microalbumin/creatinine ratio - <30, at goal of <30 normal. currently on atenolol 25mg daily am Personally reviewed labs:BUN-57, creatinine- 3.05 GFR- 24 Kidney function-abnormal. Sees Dr. Pennington. B/P today- 142/72 currently on atenolol and nifedipine. At Goal blood pressure is <140/90, encouraged to contact Dr. Pennington regarding blood pressure. Encouraged to monitor blood pressure daily. Reviewed proper way to take b/p. Personally reviewed LDL -58. on atorvastatin 20 mg daily . below Goal of less than 70. No history of macrovascular disease - CVA, OR. Assessment & Plan (02/20/2022 12:05 PM CDT): This is a chronic condition which is below goal. Personally reviewed A1c 6.7% Below goal less than 7% without hypoglycemia. Personally reviewed blood sugar log- Medication- none Monitor blood sugar daily- record results. 1-2 x daily Encouraged annual eye exam. last dilated eye exam was April 2020 Monofilament foot exam completed, protective senses intact. Discussed diabetic foot care. Referred to [facility] for foot care. Nail fungus noted. Urine microalbumin/creatinine ratio - <30, at goal of <30 normal. currently on atenolol 25mg daily am Personally reviewed labs:BUN-39, creatinine- 2.67/2.75 GFR- 28/29 Kidney function-abnormal. Sees Dr. Pennington. B/P today- 164/84 currently on atenolol and nifedipine. Not At Goal blood pressure is <140/90, encouraged to contact Dr. Pennington regarding blood pressure. Encouraged to monitor blood pressure daily. Reviewed proper way to take b/p. Personally reviewed LDL -58. on atorvastatin 20 mg daily . below Goal of less than 70. No history of macrovascular disease - CVA, OR. Hyperkalemia 05/23/2021 03/16/2023 Diabetes mellitus due to und erlying condition, controlled 05/23/2021 02/20/2022 Urinary retention 05/23/2021 03/16/2023 Thyroid enlargement 05/22/2021 09/15/20 Assessment & Plan (09/15/2022 3:40 PM CDT): Problem resolved. Assessment & Plan (02/20/2022 12:07 PM CDT): This is a chronic condition which is stable, at goal. Will continue to monitor Goal is for TSH to be between 0.3 to 4.2 mclUnits/ml. Personally reviewed lab. Last TSH- 1.16 REASON FOR STUDY: Thyroid nodule /Thyroid enlargement. TECHNIQUE: Ultrasound of the thyroid was performed with grayscale and color doppler. COMPARISON: 06/20/2021 FINDINGS: Right edd thyroid: 5.3 x 1.7 x 2.4 cm in size. Left edd thyroid: 4.9 x 2.3 x 2.2 cm in size. Isthmus: 6 mm in thickness. Thyroid nodules: There is a predominantly solid isoechoic nodule with small cystic spaces measuring 8 x 5 x 5 mm seen in the mid aspect of the right edd thyroid on image 9 of 31. TR 3. It does not meet criteria for biopsy or follow-up. The previously described 2.4 cm nodule in the inferior aspect of the right edd thyroid is not visualized and may have represented artifact. No nodules meet criteria for biopsy. Thyroid appearance and vascularity: Normal echogenicity and vascularity IMPRESSION: 1. The previously described nodule in the right edd thyroid is not visualized and was likely artifactual. No suspicious thyroid nodule identified. Assessment & Plan (11/22/2021 9:32 AM HAZARDOUS SUBSTANCES ENGINEER): This is a chronic condition Denies family history of thyroid disease Repeat thyroid ultrasound Obtain TSH reflex to t4 FINDINGS: RIGHT: The right thyroid lobe measures 5.3 x 1.9 x 2.0 cm. The right thyroid lobe is normal in echotexture. There is a solid hypoechoic nodule within the right thyroid lobe measuring 2.7 x 1.3 x 1.7 cm. TR-4 There is an additional subcentimeter nodule. LEFT: The left thyroid lobe measures 5.1 x 2.4 x 1.9 cm. The left thyroid lobe is normal in echotexture. ISTHMUS: The isthmus measures 3 mm in AP dimension. VASCULARITY: Normal. OTHER: No other significant finding. IMPRESSION: 2.7 cm TIRADS 4 nodule within the right thyroid lobe. Ultrasound-guided FNA is recommended if this has not already been performed.FINDINGS: RIGHT: The right thyroid lobe measures 5.3 x 1.9 x 2.0 cm. The right thyroid lobe is normal in echotexture. There is a solid hypoechoic nodule within the right thyroid lobe measuring 2.7 x 1.3 x 1.7 cm. TR-4 There is an additional subcentimeter nodule. LEFT: The left thyroid lobe measures 5.1 x 2.4 x 1.9 cm. The left thyroid lobe is normal in echotexture. ISTHMUS: The isthmus measures 3 mm in AP dimension. VASCULARITY: Normal. OTHER: No other significant finding. IMPRESSION: 2.7 cm TIRADS 4 nodule within the right thyroid lobe. Ultrasound-guided FNA is recommended if this has not already been performed. Upon biopsy- unalbe to determine lesion to right lobe. Will repeat ultrasound for comparison since it has been 6 months. Assessment & Plan (05/22/2021 10:11 AM CDT): This is a new finding.-palpable enlargement of right thyroid. Denies family history of thyroid disease Obtain thyroid ultrasound. Obtain TSH and free T4. Acute renal failure superimp osed on stage 4 chronic kidney disease (CMS/HCC) 05/22/2021 023 Assessment & Plan (04/28/2022 4:29 PM CDT): Josephine dewitt h/o CKD stage 4 with baseline creatinine 2.5- 2.7, presenting with Cr 3.[address] Pennington, who has been consulted Started on iv fluids NS @ 125 cc/hr, monitor BMP daily Avoid nephrotoxic agents NEDRA (acute kidney injury) 08/07/2020 Assessment & Plan (08/07/2020 12:17 PM CDT): Creatinine elevated at 2.54 in ER which is well above his normal level. Already now urinating large amounts. Will continue IV fluids but decrease rate. Continue to monitor. Result of dehydration from vomiting and diarrhea. Hold home HCTZ, lisinopril and metformin. Dehydration 08/07/2020 10/01/2020 Assessment & Plan (08/07/2020 12:17 PM CDT): Result of vomiting and diarrhea. Will continue clear liquids and advance diet as tolerated to diabetic diet. Continue IV fluids. Gastroenteritis 08/07/2020 10/01/2020 Assessment & Plan (08/07/2020 12:19 PM CDT): Did have vomiting and diarrhea yesterday. None since that time. Recently on course of Levaquin for pneumonia. CT abdomen/pelvis with liquid enteric material is noted within nondilated loops of small and large bowel, suggesting sequela of enteritis and possible impending diarrhea. No bowel wall thickening or inflammation. With recent antibiotic use, C diff testing ordered but not yet obtained as has not had bowel movement since admission. Will continue to monitor. Continue IV fluids as noted above. Diabetes mellitus due to und erlying condition with hyperglycemia, without long-term current use of insulin 07/30/2020 10/01/2020 Sepsis 07/30/2020 10/01/2020 Pneumonia 07/30/2020 10/01/2020 Suspected COVID-19 virus infection 07/30/2020 10/01/2020 Acute respiratory failure with hypoxia 07/30/2020 10/01/2020 Hyponatremia 07/30/2020 10/01/2020 Hypoxia 10/01/2020 Encounters Date Type Department Care Team Description 03/20/2025 10:00 AM CDT Office Visit [facility] at [address] [id number] Laura Daley, CHRIS Type 2 diabetes mellitus without complication, with long-term current use of insulin (HCC) (Primary Dx); Mixed diabetic hyperlipidemia associated with type 2 diabetes mellitus (HCC); Primary hypertension; Class 2 severe obesity due to excess calories with serious comorbidity and body mass index (BMI) of 37.0 to 37.9 in adult (HCC) 02/25/2025 8:05 AM CDT [address] [address] Transplanted kidney; Encounter for long-term (current) use of high-risk medication; Hyperlipidemia, unspecified hyperlipidemia type 02/22/2025 9:45 AM CDT - 02/22/2025 10:30 AM CDT Surgery [facility] [address] [place] [address] Urban Dueñas MD URONAV GUIDED PROSTATE BIOPSY 02/22/2025 9:43 AM CDT Anesthesia Event [facility] [address] [place] [address] Endy Glaser, 02/22/2025 8:08 AM CDT - 02/22/2025 11:00 AM CDT Hospital Encounter [facility] [address] [place] [address] Urban Dueñas MD Elevated PSA Discharge Disposition: Discharge to home or self care 02/14/2025 Telephone [facility] Transplant Kidney [address] [facility] [address] [id number] [place] [address] Evi Richards 02/02/2025 Telephone [facility] Trans[facility] Kidney [address] [facility] [address] [phone] [place] [address] Claudia Rahman RN 02/01/2025 8:09 AM CDT - 02/01/2025 11:59 PM CDT Hospital Encounter [facility] [id number] [place] [id number] Elevated PSA Discharge Disposition: Discharge to home or self care 01/28/2025 8:20 AM CDT Lab [address] [address] Transplanted kidney; Encounter for long-term (current) use of high-risk medication 01/13/2025 Telephone [facility] Transplant Kidney [address] [facility] [address] [phone] [place] [address] Elian Shane RN 01/12/[address] [facility] EpicCare Link Urban Dueñas MD Elevated PSA (Primary Dx) 01/07/2025 7:55 AM HAZARDOUS SUBSTANCES ENGINEER [address] [address] Transplanted kidney; Encounter for long-term (current) use of high-risk medication from Last 3 Months Immunizations Immunization Administration Dates Next Due Influenza, Quadrivalent, Hig h Dose, Preservative Free, Intrr 12/01/2023 Surgical History Surgery Date Site/Laterality Comments TONSILLECTOMY AND ADENOIDECTOMY HERNIA REPAIR COLONOSCOPY 07/31/2022 NEPHRECTOMY 11/16/2022 - 11/15/2023 Right ARTHROSCOPIC REPAIR ACL Right Medical History Medical History Date Comments Hypertension Hypertension Hyponatremia 07/30/2020 Hypoxia End-stage renal disease (ESRD) (HCC) Type 2 diabetes mellitus wit h ESRD (end-stage renal disease) (HCC) 02/20/2022 Acute renal failure superimp osed on stage 4 chronic kidney disease (HCC) 05/22/2021 Covid-19 04/27/2022 Urinary retention 05/23/2021 Hyperkalemia 05/23/2021 Screening for colon cancer 07/11/2022 Added automatically from request for surgery [id number] HLD (hyperlipidemia) History of blood transfusion as a baby BPH with elevated PSA Suspected sleep apnea Family History Medical History Relation Name Comments Hypertension Father Hypertension; Other Father Alive and well; Coronary artery disease Mother Nolan nary artery disease; Hyperlipidemia Mother Hyperlipidemi a; Other Mother Alive and well; Anesthesia problems Neg Hx Relation Name Status Comments Father Alive Mother Alive Social History Tobacco Use Types Packs/Day Years Used Date Smoking Tobacco: Never Smokeless Tobacco: Never Tobacco Cessation:Counseling Given: Not Answered Alcohol Use Standard Drinks/Week Comments Not Currently 0 (1 standard drink = 0.6 oz pur e alcohol) Social Connection and Isolat ion Panel [NHANES] Answer Date Recorded In a typical week, how many times do you talk on the phone with family, friends, or neighbors? More than three times a week 09/02/2023 How often do you get togethe r with friends or relatives? Three times a week 09/02/2023 Attends [employer] Not on file 09/02 Active Member of Clubs or Organizations Not on f ile 09/02/2023 Attends Club or Organization Meetings Not on vicky e 09/02/2023 Are you , , di vorced, , never , or living with a partner? Never 09/02/2023 AUDIT-C Answer Date Recorded Q1: How often do you have a drink containing alcohol? Never 02/22/2025 Q2: How many drinks containi ng alcohol do you have on a typical day when you are drinking? Patient does not drink Q3: How often do you have si x or more drinks on one occasion? Never 02/22/2025 Overall Financial Resource Strain (CARDIA) Answe r Date Recorded How hard is it for you to pa y for the very basics like food, housing, medical care, and heating? Not hard at all 09/02/2023 PHQ-2 Answer Date Recorded PHQ-2 Total Score (If total score is 3 or more points, staff should administer the PHQ-9) 0 11/22/2021 Hunger Vital Sign Answer Date Recorded Within the past 12 months, y ou worried that your food would run out before you got the money to buy more. Never true 09/02/20 23 Within the past 12 months, t he food you bought just didn't last and you didn't have money to get more. Never true 09/02/2023 PRAPARE - Transportation Answer Date Re corded In the past 12 months, has l ack of transportation kept you from medical appointments or from getting medications? No 08/16 In the past 12 months, has l ack of transportation kept you from meetings, work, or from getting things needed for daily living? No 09/02/2023 Personal Safety Answer Date Recorded Have you ever been in or are you currently in a harmful physical or emotional relationship or is someone making you feel afraid or unsafe? 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 [employer] ENGINEER Gender Identity Not on file Sexual Orientation Not on file Obstetrics History Last Filed Vital Signs Vital Sign Reading Time Taken Comments Blood Pressure 134/72 03/20/2025 9:59 AM CDT Pulse 62 02/22/2025 11:15 AM CDT Temperature 36.3 C (97.3 F) 02/22/2025 10:13 AM CDT Respiratory Rate 20 02/22/2025 11:15 AM CDT Oxygen Saturation 95% 02/22/2025 11:15 AM CDT Inhaled Oxygen Concentration - - Weight 87.6 kg (193 lb 1.6 oz) 03/20/2025 9:59 A M CDT Height 152.4 cm (5') 03/20/2025 9:59 AM CDT Body Mass Index 37.71 03/20/2025 9:59 AM CDT Plan of Treatment Health Maintenance Due Date Last Done Comments DTaP/Tdap/Td Vaccine (1 - Tdap) 1984 Regular Well Visit/Exam 18-64 1991 Pneumococcal vaccine <65 (1 of 2 - PCV) 1992 Zoster Vaccine (1 of 2) 1992 Covid-19 Vaccine (3 - Modern a risk series) 04/12/2021 03/15/2021, 02/15/2021 Depression Screening 11/22/2022 11/22/2021, 05/22/2021, 07/30/2020, Additional history exists Prostate Cancer Screening-PSA 08/18/2024 08/18/2022, 12/18/2021 Dilated Eye Exam 05/03/2025 05/03/2024, , 08/16/2020 Influenza Vaccine (Season Ended) 2025 12/01/19 24 Hemoglobin A1C 09/20/2025 03/20/2025, 11/16, 09/06/2024, Additional history exists Albumin Creatinine Ratio, Urine 10/18/2025 , 05/22/2021 Foot Exam 10/18/2025 10/18/2024, 0811/2023, 03/17/2024, Additional history exists Lipid Panel 02/25/2026 02/25/2025, 11/16, 08/29/2024, Additional history exists eGFR 02/25/2026 02/25/2025, 01/14, 01/07/2025, Additional history exists Colon Cancer Screening-Colonoscopy 07/31/20322021 Hepatitis B Screening Completed 09/01/2023 Hepatitis C Screening Completed 09/29/2023 , 09/01/2023, 09/01/2023, Additional history exists Medical Devices Explanted Type Area Envelope Maker Device Identifier Shelf Expiration Date Model / Serial / Lot [employer] Universa 6fr 20cm Radiopaque Positioner Monofilament Tether 2 [id number] - [id number] Implanted:Qty: 1 on 09/01/2023 by Tony Conde MD at [facility] Explanted:Qty: 1 on 09/29/2023 by Levon Urbano MD Transplanted Ureter Right: Transplanted Ureter [place] [facility] 04/06/2026 [id number] / / Procedures Procedure Name Priority Date/Time Associated Diagnosis Comments POCT HEMOGLOBIN A1C Routine 03/20/2025 10:03 AM CDT Type 2 diabetes mellitus without complication, with long-term current use of insulin (HCC) POCT GLUCOSE Routine 03/20/2025 10:00 AM CDT Type 2 diabetes mellitus without complication, with long-term current use of insulin (HCC) EGFR Routine 02/25/2025 8:11 AM CDT PHOSPHORUS Routine 02/25/2025 8:11 AM CDT BILIRUBIN, DIRECT Routine 02/25/2025 8:1 1 AM CDT COMPREHENSIVE METABOLIC PANEL Routine 02/25/2025 8:11 AM CDT Transplanted kidney DIFFERENTIAL AUTO Routine 02/25/2025 8:1 1 AM CDT Transplanted kidney LIPID PANEL Routine 02/25/2025 8:11 AM CDT Transplanted kidney Hyperlipidemia, unspecified hyperlipidemia type CBC WITH AUTO DIFFERENTIAL Routine 02/25/2025 8:11 AM CDT Transplanted kidney TACROLIMUS LEVEL, TROUGH Routine 02/25/2025 8:11 AM CDT Transplanted kidney Encounter for long-term (current) use of high-risk medication BK VIRUS PCR QUANTITATIVE Routine 02/25/2025 8:11 AM CDT Transplanted kidney POCT GLUCOSE DEVICE Routine 02/22/2025 10:18 AM CDT URONAV GUIDED PROSTATE BIOPSY 02/22/2025 9:43 AM CDT Elevated PSA Case Notes FORTEC URONAV Special Needs [facility] URONAV SURGICAL PATHOLOGY Routine 02/22/2025 9: 32 AM CDT Elevated PSA POCT GLUCOSE DEVICE Routine 02/22/2025 8 :48 AM CDT MRI PELVIS PROSTATE W WO CONTRAST Schedule Routine, Read Routine (OP Routine) 02/01/2025 9:54 AM CDT Elevated PSA EGFR Routine 01/28/2025 8:41 AM CDT Transplanted kidney DIFFERENTIAL AUTO Routine 01/28/2025 8:4 1 AM CDT Transplanted kidney CBC WITH AUTO DIFFERENTIAL Routine 01/28/2025 8:41 AM CDT Transplanted kidney TACROLIMUS LEVEL, TROUGH Routine 01/28/2025 8:41 AM CDT Transplanted kidney Encounter for long-term (current) use of high-risk medication RENAL FUNCTION PANEL Routine 01/28/2025 8:41 AM CDT Transplanted kidney BK VIRUS PCR QUANTITATIVE Routine 01/28/2025 8:41 AM CDT Transplanted kidney EGFR Routine 01/07/2025 7:57 AM HAZARDOUS SUBSTANCES ENGINEER Transplanted kidney DIFFERENTIAL AUTO Routine 01/07/2025 7:5 7 AM HAZARDOUS SUBSTANCES ENGINEER Transplanted kidney CBC WITH AUTO DIFFERENTIAL Routine 01/07/2025 7:57 AM HAZARDOUS SUBSTANCES ENGINEER Transplanted kidney TACROLIMUS LEVEL, TROUGH Routine 01/07/2025 7:57 AM HAZARDOUS SUBSTANCES ENGINEER Transplanted kidney Encounter for long-term (current) use of high-risk medication RENAL FUNCTION PANEL Routine 01/07/2025 7:57 AM HAZARDOUS SUBSTANCES ENGINEER Transplanted kidney BK VIRUS PCR QUANTITATIVE Routine 01/07/2025 7:57 AM HAZARDOUS SUBSTANCES ENGINEER Transplanted kidney ALBUMIN CREATININE RATIO, URINE Routine 10/18/2024 8:00 AM HAZARDOUS SUBSTANCES ENGINEER Type 2 diabetes mellitus without complication, without long-term current use of insulin (HCC) DIABETIC EYE EXAM Routine 05/03/2024 HEPATITIS C RNA, QUANTITATIVE, PCR Routine 09/29/2023 11:03 AM HAZARDOUS SUBSTANCES ENGINEER Inconclusive laboratory evidence of human immunodeficiency virus (HIV) Aftercare following organ transplant PSA SCREEN Routine 08/18/2022 11:55 AM CDT End stage renal disease (HCC) COLONOSCOPY 07/31/2022 8:03 AM CDT DIABETES FOOT EXAM Routine 02/04/2018 from Last 3 Months or Most Recently Relevant to Health Maintenance Results * (ABNORMAL) POCT hemoglobin A1c (03/20/2025 10:03 AM CDT) Hemoglobin A1C, POC 10.2(A) 4.0 - 5.6 % Blood 03/20/2025 10:0 3 AM CDT Laura Daley NP POINT OF CARE TEST ORDERABLES F inal Result * POCT glucose (03/20/2025 10:00 AM CDT) Pathologist [facility] Glucose Blood, POC 160 Normal Fasting 70 - 100, Random <200 mg/dL Blood 03/20/2025 10:0 0 AM CDT Laura Daley NP POINT OF CARE TEST ORDERABLES F inal Result * BK virus PCR quantitative Blood (02/25/2025 8:11 AM CDT) Pathologist [facility] BKV DNA result, pl Not Detected [facility] Comment: The quantifiable range of this assay is 21.5 IU/mL to 100,000,000 IU/mL (1.33 log IU/mL to 8.00 log IU/mL). Testing was performed by the LIV 6800 BKV Quantatitive Test version 2.0 ([employer] Testing performed at [facility] Current Interpretive Data was last revised on 2021. Testing performed by: [facility], [address], [place]., [address] Blood 02/25/2025 8:11 AM CDT 02/25/2025 2:21 PM CDT Narrative ALAN DUNLAP (JAYY) - 02/27/2025 11:19 AM CDT MONTHLY (EVERY 4 WEEKS) us Jil Garza MD LAB MICROBIOLOGY - GENERAL ORDERABLES Final Result ALAN DUNLAP (JAYY) 1 [facility] Department [place] [address] [facility] * eGFR (02/25/2025 8:11 AM CDT) eGFR 90 >=60 mL/min/1. 73 m2 Comment: Interpretive Data Reference Interval Normal >/= 90 mL/min/1.73m2 Mildly decreased* 60 - 89 mL/min/1.73m2 Mildly to moderately decreased 45 - 59 mL/min/1.73m2 Moderately to severely decreased 30 - 44 mL/min/1.73m2 Severely decreased 15 - 29 mL/min/1.73m2 Kidney Failure < 15 mL/min/1.73m2 *Relative to young adult level Estimated glomerular filtration rate is determined by the 2020 CKD-EPI equation recommended by the National Kidney Foundation (A Unifying Approach to GFR Estimation: Recommendations of the NKF-ASK Task Force on Reassessing the Inclusion of Race in Diagnosing Kidney Disease, JASN 2020). The CKD-EPI equation should not be used for patients with unstable renal function and has not been validated in children and those over 70. Current interpretive data was last reviewed 2021. Blood 02/25/2025 8:11 AM CDT 02/25/2025 8:31 AM CDT us Jil Garza MD LAB BLOOD ORDERAB LES Final Result ALAN DUNLAP ([place]AYY) 1 [facility] [place] [address] * (ABNORMAL) Differential, auto (02/25/2025 8:11 AM CDT) Neutrophil abs 5.42 1.50 - 6.50 K/cumm Imm gran abs 0.08 0.00 - 0.10 K/cumm [facility] ([place]) Lymphocyte abs 1.51 0.80 - 3.30 K/cumm [facility] ([place]) Monocyte abs 1.03(H) 0.20 - 0.80 K/cumm [facility] ([place]) Eosinophil abs 0.10 0.00 - 0.50 K/cumm [facility] ([place]) Basophil abs 0.06 0.00 - 0.10 K/cumm [facility] ([place]) Neutrophil pct 66.1 % [facility] ([place]) Comment: Interpretive Data Percent cell count reference ranges are not reported, since discordance with absolute values may lead to misinterpretation of CBC data. Current Interpretive Data was last revised on 2018. Imm gran pct 1.0 % [facility] ([place]) Comment: Interpretive Data Percent cell count reference ranges are not reported, since discordance with absolute values may lead to misinterpretation of CBC data. Current Interpretive Data was last revised on 2018. Lymphocyte pct 18.4 % [facility] ([place]) Comment: Interpretive Data Percent cell count reference ranges are not reported, since discordance with absolute values may lead to misinterpretation of CBC data. Current Interpretive Data was last revised on 2018. Monocyte pct 12.6 % [facility] ([place]) Comment: Interpretive Data Percent cell count reference ranges are not reported, since discordance with absolute values may lead to misinterpretation of CBC data. Current Interpretive Data was last revised on 2018. Eosinophil pct 1.2 % [facility] ([place]) Comment: Interpretive Data Percent cell count reference ranges are not reported, since discordance with absolute values may lead to misinterpretation of CBC data. Current Interpretive Data was last revised on 2018. Basophil pct 0.7 % [facility] ([place]) Comment: Interpretive Data Percent cell count reference ranges are not reported, since discordance with absolute values may lead to misinterpretation of CBC data. Current Interpretive Data was last revised on 2018. Blood 02/25/2025 8:11 AM CDT 02/25/2025 8:31 AM CDT Jil Garza MD LAB BLOOD ORDERAB LES Final Result ALAN DUNLAP (JAYY) 1 [facility] [place] [address] * Tacrolimus level trough (02/25/2025 8:11 AM CDT) Pathologist [facility] Tacrolimus trough 6.5 ng/mL Comment: Interpretive Data Testing performed by liquid chromatography-tandem mass spectrometry. Therapeutic concentrations vary depending on type of transplanted organ and time elapsed since transplant. Typical trough concentrations range from 5-15 ng/mL. This test was developed and its performance characteristics determined by the [facility] consistent with CLIA requirements. This test has not been cleared or approved by the US Food and Drug administration. Current interpretive data last reviewed 2020. Testing performed by: [facility], [address] [place]., [address] Blood 02/25/2025 8:11 AM CDT 02/25/2025 2:23 PM CDT Narrative ALAN DUNLAP (JAYY) - 02/26/2025 3:00 AM CDT MONTHLY (EVERY 4 WEEKS) us Jil Garza MD LAB BLOOD ORDERAB LES Final Result ALAN DUNLAP (JAYY) 1 [facility] [place] [address] * CBC with auto differential (02/25/2025 8:11 AM CDT) WBC 8.20 3.80 - 9.90 K/cumm Hgb 14.9 13.0 - 17.5 g/dL [facility] ([place]) Hct 44.4 38.9 - 50.3 % [facility] ([place]) Plt 222 150 - 400 K/cumm [facility] ([place]) MPV 11.2 9.1 - 12.3 fL [facility] ([place]) RBC 5.09 4.30 - 5.80 M/cumm [facility] ([place]) MCV 87.2 81.3 - 96.4 fL [facility] ([place]) MCH 29.3 27.1 - 33.3 pg [facility] ([place]) MCHC 33.6 32.3 - 35.7 g/dL [facility] ([place]) RDW CV 13.8 11.1 - 14.9 % [facility] ([place]) RDW SD 44.3 35.7 - 48.1 fL [facility] ([place]) NRBC abs 0.00 0.00 - 0.01 K/cumm [facility] ([place]) Blood 02/25/2025 8:11 AM CDT 02/25/2025 8:31 AM CDT [facility]ative [facility] - 02/25/2025 8:34 AM CDT MONTHLY (EVERY 4 WEEKS) us Jil Garza MD LAB BLOOD ORDERAB LES Final Result ALAN DUNLAP ([place]AYY) 1 [facility] [place] [address] * Phosphorus (02/25/2025 8:11 AM CDT) Phosphorus, pl 2.8 2.3 - 4.5 mg/dL Blood 02/25/2025 8:11 AM CDT 02/25/2025 8:31 AM CDT us Jil Garza MD LAB BLOOD ORDERAB LES Final Result ALAN DUNLAP ([place]AYY) 1 [facility] [place] [address] * Bilirubin, direct (02/25/2025 8:11 AM CDT) Bilirubin, direct <0.1 0.1 - 0.3 mg/dL Comment: Hemolysis present. Results may be affected. Slightly Hemolyzed Specimen Blood 02/25/2025 8:11 AM CDT 02/25/2025 8:31 AM CDT us Jil Garza MD LAB BLOOD ORDERAB LES Final Result ALAN FABI ([place]) 1 [facility] [place] [address] * (ABNORMAL) Lipid panel (02/25/2025 8:11 AM CDT) Cholesterol 139 30 - 199 mg/dL Comment: Interpretive Data Ages < or = 19 years Acceptable: <170 mg/dL Borderline high: 170-199 mg/dL High: >or= 200 mg/dL Ages > or = 20 years Desirable: <200 mg/dL Borderline high: 200-239 mg/dL High: >or= 240 mg/dL Literature References: 1. Expert Panel on Integrated Guidelines for Cardiovascular Health and Risk Reduction in Children and Adolescents. Pediatrics 2011;128:S213 2. NCEP Expert Panel. Circulation 2004;110:227 Current Interpretive Data was last revised on 2018. Triglycerides 171(H) <=149 mg/dL [facility] (JAYY) Comment: Interpretive Data Ages < or = 9 years Acceptable: <75 mg/dL Borderline high: 75-99 mg/dL High: >or= 100 mg/dL Ages 10 to 20 years Acceptable: <90 mg/dL Borderline high: 90-129 mg/dL High: >or= 130 mg/dL Ages > or = 20 years Desirable: <150 mg/dL Borderline high: 150-199 mg/dL High: 200-499 mg/dL Very high: >or= 499 mg/dL Literature References: 1. Expert Panel on Integrated Guidelines for Cardiovascular Health and Risk Reduction in Children and Adolescents. Pediatrics 2011;128:S213 2. NCEP Expert Panel. Circulation 2004;110:227 Current Interpretive Data was last revised on 2018. HDL 55 >=40 mg/dL [facility] DUNLAP ([place]AY[place]) Comment: Interpretive Data Ages < or = 19 years Acceptable: >45 mg/dL Borderline low: 40-45 mg/dL Low: <40 mg/dL Ages > or = 20 years Desirable: >or= 60 mg/dL Low: <40 mg/dL Literature References: 1. Expert Panel on Integrated Guidelines for Cardiovascular Health and Risk Reduction in Children and Adolescents. Pediatrics 2011;128:S213 2. NCEP Expert Panel. Circulation 2004;110:227 Current Interpretive Data was last revised on 2018. LDL, calculated 56 <=129 mg/dL [facility] ([place]AY[place]) Comment: Interpretive Data Ages < or = 19 years Acceptable: <110 mg/dL Borderline high: 110-129 mg/dL High: >or= 130 mg/dL Ages > or = 20 years Optimal: <100 mg/dL Near optimal: 100-129 mg/dL Borderline high: 130-159 mg/dL High: >160 mg/dL Calculated using the Fletcher LDL-C estimating equation. This equation was implemented on 2024. Prior to this date LDL-C was estimated using the Friedewald equation. Literature References: 1. Expert Panel on Integrated Guidelines for Cardiovascular Health and Risk Reduction in Children and Adolescents. Pediatrics 2011;128:S213 2. NCEP Expert Panel. Circulation 2004;110:227 3. Fletcher Garcia al. HALIE Cardiol. 2019March 16;5(5):540-548. doi: 10.1001/[email or web address].2020.0013 Current Interpretive Data was last revised on 2024. Non-HDL Cholesterol 84 mg/dL [facility] DUNLAP (JAYY) Comment: Interpretive Data Ages < or = 19 years Acceptable: <120 mg/dL Borderline high: 120-144 mg/dL High: >145 mg/dL Ages > or = 20 years When triglycerides are >200 mg/dL, Non-HDL cholesterol is a secondary target of therapy with treatment goals that are 30 mg/dL greater than the LDL cholesterol target. Literature References: 1. Expert Panel on Integrated Guidelines for Cardiovascular Health and Risk Reduction in Children and Adolescents. Pediatrics 2011;128:S213 2. NCEP Expert Panel. Circulation 2004;110:227 Current Interpretive Data was last revised on 2018. Chol/HDL ratio 3 [facility] ([place]) Blood 02/25/2025 8:11 AM CDT 02/25/2025 8:31 AM CDT Narrative [facility] ([place]) - 02/25/2025 9:26 AM CDT PLEASE OBTAIN LILY, FEB, MAY, AUG (1X PER MONTH) us Jil Garza MD LAB BLOOD ORDERAB LES Final Result [facility] ([place]) 1 [facility] [place] [address] * (ABNORMAL) Comprehensive metabolic panel (02/25/2025 8:11 AM CDT) Sodium 140 135 - 145 mmol/L Potassium, pl 4.7 3.3 - 4.9 mmol/L [facility] ([place]) Chloride 106 97 - 110 mmol/L [facility] ([place]) CO2 20(L) 22 - 32 mmol/L [facility] ([place]) Anion gap 14 2 - 15 mmol/L [facility] ([place]) BUN 30(H) 6 - 25 mg/dL [facility] ([place]) Creatinine 1.01 0.80 - 1.30 mg/dL [facility] ([place]) Glucose 240(H) 70 - 199 mg/dL [facility] ([place]) Comment: Interpretive Data Fasting glucose >/= 126 mg/dl is diagnostic for diabetes. Fasting is defined as no caloric intake for at least 8 hours. Fasting glucose between 100 mg/dl to 125 mg/dl is diagnostic of prediabetes. In a patient with classic symptoms of hyperglycemia or hyperglycemic crisis, a random glucose >/= 200 mg/dl is diagnostic for diabetes. In the absence of unequivocal hyperglycemia, results should be confirmed by repeat testing. The classification and Diagnosis of Diabetes Diabetes Care 202; 46: S19-S40. Current interpretive data was last revised 2022. Calcium 8.8 8.5 - 10.3 mg/dL [facility] ([place]) Bilirubin, total <0.2 0.1 - 1.2 mg/dL [facility] ([place]) Protein, pl 6.9 6.5 - 8.5 g/dL [facility] ([place]) Albumin 4.3 3.5 - 5.0 g/dL [facility] ([place] Alk phos 126 40 - 130 Units/L [facility] ([place]) ALT 33 7 - 55 Units/L [facility] ([place]) AST 22 10 - 50 Units/L [facility] ([place] Comment: Hemolysis present. Results may be affected. Slightly Hemolyzed Specimen Blood 02/25/2025 8:11 AM CDT 02/25/2025 8:31 AM CDT us Jil Garza MD LAB BLOOD ORDERAB LES Final Result [facility] ([place]) 1 [facility] [place] [address] * POCT glucose (02/22/2025 10:18 AM CDT) Glucose, POC 182 70 - 199 mg/dL POC Performer [id number] [facility] Blood 02/22/2025 10:1 8 AM CDT 02/22/2025 10:18 AM CDT us Urban Farris MD LAB POCT ORDERABLES - DEVICE F inal Result [facility] 10 [facility] Department [place] [address] * Surgical pathology (02/22/2025 9:32 AM CDT) Tissue (Prostate, Needle Biopsy) 02/22/2025 9:32 AM CDT Tissue specimen (specimen) (Prostate, Needle Biopsy) 02/22/2025 9:32 AM CDT Tissue specimen (specimen) (Prostate, Needle Biopsy) 02/22/2025 9:32 AM CDT Tissue specimen (specimen) (Prostate, Needle Biopsy) 02/22/2025 9:32 AM CDT Tissue specimen (specimen) (Prostate, Needle Biopsy) 02/22/2025 9:32 AM CDT Tissue specimen (specimen) (Prostate, Needle Biopsy) 02/22/2025 9:32 AM CDT Tissue specimen (specimen) (Prostate, Needle Biopsy) 02/22/2025 9:32 AM CDT Tissue specimen (specimen) (Prostate, Needle Biopsy) 02/22/2025 9:32 AM CDT Tissue specimen (specimen) (Prostate, Needle Biopsy) 02/22/2025 9:32 AM CDT Tissue specimen (specimen) (Prostate, Needle Biopsy) 02/22/2025 9:32 AM CDT Tissue specimen (specimen) (Prostate, Needle Biopsy) 02/22/2025 9:32 AM CDT Tissue specimen (specimen) (Prostate, Needle Biopsy) 02/22/2025 9:32 AM CDT Tissue specimen (specimen) (Prostate, Needle Biopsy) 02/22/2025 9:50 AM CDT Narrative PATHOLOGY [facility] - 02/24/2025 10:33 AM CDT [address] [address] Tele: Aliya Cobian MD - [employer] Note to Patients: This report may contain a detailed description of human tissue sent by a health care provider to the laboratory for pathologic evaluation. The content of this report is essential for diagnosis and may provide important critical findings. This information may be unfamiliar to patients to review without a medical professional present. It is advised that the patient review this report in the presence of a health care provider who can answer questions and explain the details. SURGICAL PATHOLOGY REPORT Patient Name: OLGA WYNN Address: [address] [place] [id number] Gender: M : 1975 (Age: 49) Service: Surgery Location: OR, Hospital #: [id number] Patient Type: [facility] Same Day Surgery Taken: 02/22/2025 Received 02/22/2025 Reported: 02/24/2025 Physician(s): MD Edi Thompson PA DIAGNOSIS: A. Prostate, left lateral apex, biopsy: - Benign prostatic tissue B. Prostate, left lateral base, biopsy: - Benign prostatic tissue C. Prostate, left base, biopsy: - Benign prostatic tissue D. Prostate, left mid, biopsies: - Benign prostatic tissue E. Prostate, left lateral mid, biopsy: - Benign prostatic tissue F. Prostate, right lateral apex, biopsy: - Benign stromal tissue G. Prostate, right lateral base, biopsy: - Benign prostatic tissue with focal acute inflammation H. 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 Prostate, right mid, biopsies: - Benign prostatic tissue J. Prostate, right lateral mid, biopsies: - Benign stromal tissue K. Prostate, left apex, biopsies: - Benign prostatic tissue L. Prostate, right apex, biopsies: - Benign prostatic tissue M. Prostate, region of interest, biopsy: - Benign prostatic tissue 02/24/2025 10:33 Examining Pathologist: Marshal Hernandez M.D. Report Reviewed and Electronically Signed By Marshal Hernandez M.D. SPECIMEN TYPE: A: LEFT LATERAL APEX B: LEFT LATERAL BASE C: LEFT BASE D: LEFT MID E: LEFT LATERAL MID GLAND F: RIGHT LATERAL APEX G: RIGHT LATERAL BASE H: RIGHT BASE I: RIGHT MID J: RIGHT LATERAL MID GLAND K: LEFT APEX L: RIGHT APEX M: RODNEY CLINICAL IMPRESSION AND HISTORY: Elevated PSA GROSS DESCRIPTION: The tissue is received in 13 containers of formalin all labeled with the patient's name OLGA WYNN . A. The first container is additionally labeled left lateral apex and contains a 1 cm core tissue. Due to the color and size of the specimen, eosin is used. The specimen is filtered and submitted entirely in cassette A1. B. The second container is additionally labeled left lateral base and contains a 1.3 cm core of tissue. Due to the color and size of the specimen, eosin is used. The specimen is filtered and submitted entirely in cassette B1. C. The third container is additionally labeled left base and contains a 0.6 cm core of tissue. Due to the color and size of the specimen, eosin is used. The specimen is filtered and submitted entirely in cassette C1. D. The fourth container is additionally labeled left mid and contains a 1.2 cm core tissue. Due to the color and size of the specimen, eosin is used. The specimen is filtered and submitted entirely in cassette D1. E. The fifth container is additionally labeled left lateral mid gland and contains a 0.8 cm core tissue. Due to the color and size of the specimen, eosin is used. The specimen is filtered and submitted entirely in cassette E1. F. The sixth container is additionally labeled right lateral apex and contains a 0.8 cm core tissue. Due to the color and size of the specimen, eosin is used. The specimen is filtered and submitted entirely in cassette F1. G. The seventh container is additionally labeled right lateral base and contains a 0.7 cm core of tissue. Due to the color and size of the specimen, eosin is used. The specimen is filtered and submitted entirely in cassette G1. H. The eighth container is additionally labeled right base and contains a 1.8 cm core of tissue. Due to the color and size of the specimen, eosin is used. The specimen is filtered and submitted entirely in cassette H1. I. The ninth container is additionally labeled right mid and contains a 1.3 cm core of tissue. Due to the color and size of the specimen, eosin is used. The specimen is filtered and submitted entirely in cassette I1. J. The tenth container is additionally labeled right lateral mid gland and contains a 0.4 cm core of tissue. Due to the color and size of the specimen, eosin is used. The specimen is filtered and submitted entirely in cassette J1. K. The eleventh container is additionally labeled left apex and contains a 0.7 cm core of tissue. Due to the color and size of the specimen, eosin is used. The specimen is filtered and submitted entirely in cassette K1. L. The twelfth container is additionally labeled right apex and contains a 1 cm core of tissue. Due to the color and size of the specimen, eosin is used. The specimen is filtered and submitted entirely in cassette L1. M. The thirteenth container is additionally labeled region of interest and contains two cores of tissue measuring 0.8 cm and 1.6 cm. Due to the color and size of the specimen, eosin is used. The specimen is filtered and submitted entirely in cassette M1. JAP,CUH MICROSCOPIC DESCRIPTION: Microscopic examination supports the above captioned diagnosis. A PIN-4 triple stain was performed on the right base prostate biopsy (part H). It highlights a small focus of atypical glands that lack basal cells and overexpress AMACR. The findings are consistent with adenocarcinoma. Clerical Data Follows A; 81285, 89842 <CR> B; 37369, 88986 <CR> C; 37036, 19216 <CR> D; 72350, 13770 <CR> E; 51460, 75056 <CR> F; 72855, 63196 <CR> G; 45084, 13464 <CR> H; 76642, 95693, 62391 <CR> I; 47215, 42205 <CR> J; 27516, 49178 <CR> K; 04749, 93568 <CR> L; 883 REPORT IMAGES AND/OR SCANNED DOCUMENTS ONLY VIEWABLE IN PDF FORMAT The immunohistochemical test(s) cited in this report, if any, was developed and its performance characteristics determined by [facility] Pathology Department. It has not been cleared or approved by the U.S. Food and Drug Administration. The FDA has determined that such clearance or approval is not necessary. This test is used for clinical purposes. It should not be regarded as investigational or for research. [facility] is certified under the Clinical Laboratory Improvement Amendments of 1988 (CLIA) as qualified to perform high complexity testing. Immunostains were performed on formalin-fixed paraffin embedded tissue using a polymer diaminobenzidine chromogen detection system. Antibodies used may include clone SP1 (rabbit monoclonal, estrogen receptor), clone 1E2 (rabbit monoclonal progesterone receptor), Ki-67 (rabbit monoclonal, 30-9), CD117 (rabbit polyclonal, c-kit), and anti-Her-2/gabriel (4B5) (rabbit monoclonal primary antibody). In the event that immunohistochemistry or special stains have been performed, attending physician has confirmed appropriateness of controls. Frozen section, operating room consultation, gross examination and dissection, and case sign out may have been performed in part or completely in the following laboratories: [facility], [facility], [place], [place] [id number] [place] [address], [address] [place] [address], [place] [address]. Urban Farris MD LAB PATHOLOGY ORDERABLES Final Result PATHOLOGY [facility] Laboratory Receiving [address] [place], [place] [id number] * POCT glucose (02/22/2025 8:48 AM CDT) Glucose, POC 115 70 - 199 mg/dL POC Performer [id number] ALAN [facility] Blood 02/22/2025 8:48 AM CDT 02/22/2025 8:48 AM CDT us Urban Farris MD LAB POCT ORDERABLES - DEVICE F inal Result [facility] 10 [facility] Department [place] [address] * MRI PELVIS PROSTATE W WO CONTRAST (02/01/2025 9:54 AM CDT) Anatomical Region Laterality Modality Body N/A Magnetic Resonan ce 02/01/2025 12:2 6 PM CDT Impressions 02/01/2025 1:13 PM CDT 1. A lesion in the left junction of medial and lateral peripheral zone at the apex is at high suspicion for malignancy with an overall PI-RADS score of 4 and extraprostatic extension grade of 0. 2. No evidence of metastatic disease in the pelvis. Dictated by: Jesus Urbina M.D. The radiology attending physician has personally reviewed this study, and had reviewed and/or edited this written report and agrees with it. Electronically signed by: Shira Multani M.D. Narrative 02/01/2025 1:13 PM CDT EXAMINATION: MAGNETIC RESONANCE IMAGING OF THE PELVIS WITHOUT AND WITH CONTRAST HISTORY: 49-year-old man with elevated prostate-specific antigen level. The most recent prostate-specific antigen level available in the electronic medical record measured 3.6 ng/mL in August 2022. TECHNIQUE: MR imaging of the prostate gland was performed with a torso phased array coil prior to and following administration of intravenous gadolinium. Protocol: Prostate 3T Contrast: gadoterate 15 mL COMPARISON: CT of the abdomen and pelvis dated 08/18/2022. FINDINGS: Prostate volume: 34 cc The prostate transition zone is enlarged with benign prostatic hyperplasia. Non-masslike mild T2 hypointensity within the peripheral zone likely represents sequela of prostatitis or fibrosis. The prostate was assessed using the PI-RADS version 2.1 scoring system. The following lesions are of at least intermediate suspicion (PI-RADS 3 or greater): Lesion 1: Side: left Location: junction of medial and lateral Zone: peripheral zone Craniocaudal: apex Delgado images: series 7, image 27; series 25, image 28 Size: 0.1 mL; largest axial dimensions 0.7 x 0.5 cm Extraprostatic extension: - tumor contact length with prostate margin: < 15 mm - margin bulge/irregularity: no - rectoprostatic angle obliteration: no - neurovascular bundle asymmetry: no - gross extraprostatic extension: no - overall EPE grade: 0 (no suspicion for pathologic EPE) T2WI score: 3 DWI score: 3 DCE: positive Overall PI-RADS v2.1 assessment: 4 Staging Information: No enlarged lymph nodes are identified. No suspicious osseous lesions are identified. Other findings: Right iliac fossa transplant kidney is noted without hydronephrosis or suspicious lesion in the transplant kidney. The urinary bladder is normal. Multilevel degenerative changes in the lower lumbar spine. Procedure Note Shira Multani MD - 02/01/2025 EXAMINATION: MAGNETIC RESONANCE IMAGING OF THE PELVIS WITHOUT AND WITH CONTRAST HISTORY: 49-year-old man with elevated prostate-specific antigen level. The most recent prostate-specific antigen level available in the electronic medical record measured 3.6 ng/mL in August 2022. TECHNIQUE: MR imaging of the prostate gland was performed with a torso phased array coil prior to and following administration of intravenous gadolinium. Protocol: Prostate 3T Contrast: gadoterate 15 mL COMPARISON: CT of the abdomen and pelvis dated 08/18/2022. FINDINGS: Prostate volume: 34 cc The prostate transition zone is enlarged with benign prostatic hyperplasia. Non-masslike mild T2 hypointensity within the peripheral zone likely represents sequela of prostatitis or fibrosis. The prostate was assessed using the PI-RADS version 2.1 scoring system. The following lesions are of at least intermediate suspicion (PI-RADS 3 or greater): Lesion 1: Side: left Location: junction of medial and lateral Zone: peripheral zone Craniocaudal: apex Delgado images: series 7, image 27; series 25, image 28 Size: 0.1 mL; largest axial dimensions 0.7 x 0.5 cm Extraprostatic extension: - tumor contact length with prostate margin: < 15 mm - margin bulge/irregularity: no - rectoprostatic angle obliteration: no - neurovascular bundle asymmetry: no - gross extraprostatic extension: no - overall EPE grade: 0 (no suspicion for pathologic EPE) T2WI score: 3 DWI score: 3 DCE: positive Overall PI-RADS v2.1 assessment: 4 Staging Information: No enlarged lymph nodes are identified. No suspicious osseous lesions are identified. Other findings: Right iliac fossa transplant kidney is noted without hydronephrosis or suspicious lesion in the transplant kidney. The urinary bladder is normal. Multilevel degenerative changes in the lower lumbar spine. IMPRESSION: 1. A lesion in the left junction of medial and lateral peripheral zone at the apex is at high suspicion for malignancy with an overall PI-RADS score of 4 and extraprostatic extension grade of 0. 2. No evidence of metastatic disease in the pelvis. Dictated by: Jesus Urbina M.D. The radiology attending physician has personally reviewed this study, and had reviewed and/or edited this written report and agrees with it. Electronically signed by: Shira Multani M.D. [facility] MD IM MRI PROCEDURES Final Resul t * BK virus PCR quantitative Blood (01/28/2025 8:41 AM CDT) [facility] BKV DNA result, pl Not Detected [facility] Comment: The quantifiable range of this assay is 21.5 IU/mL to 100,000,000 IU/mL (1.33 log IU/mL to 8.00 log IU/mL). Testing was performed by the LIV 6800 BKV Quantatitive Test version 2.0 ([employer] Testing performed at [facility] Current Interpretive Data was last revised on 2021. Testing performed by: [facility], [address] [place]., [address] Blood 01/28/2025 8:41 AM CDT 01/28/2025 6:35 PM CDT Connie DUNLAP (JAYY) - 01/30/2025 12:07 PM CDT MONTHLY (EVERY 4 WEEKS) us Jil Garza MD LAB MICROBIOLOGY - GENERAL ORDERABLES Final Result LAAN DUNLAP ([place]) 1 [facility] [place] [address] [facility] * eGFR (01/28/2025 8:41 AM CDT) eGFR 78 >=60 mL/min/1. 73 m2 Comment: Interpretive Data Reference Interval Normal >/= 90 mL/min/1.73m2 Mildly decreased* 60 - 89 mL/min/1.73m2 Mildly to moderately decreased 45 - 59 mL/min/1.73m2 Moderately to severely decreased 30 - 44 mL/min/1.73m2 Severely decreased 15 - 29 mL/min/1.73m2 Kidney Failure < 15 mL/min/1.73m2 *Relative to young adult level Estimated glomerular filtration rate is determined by the 2020 CKD-EPI equation recommended by the National Kidney Foundation (A Unifying Approach to GFR Estimation: Recommendations of the NKF-ASK Task Force on Reassessing the Inclusion of Race in Diagnosing Kidney Disease, JASN 2020). The CKD-EPI equation should not be used for patients with unstable renal function and has not been validated in children and those over 70. Current interpretive data was last reviewed 2021. Blood 01/28/2025 8:41 AM CDT 01/28/2025 8:53 AM CDT us Jil Garza MD LAB BLOOD ORDERAB LES Final Result ALAN DUNLAP ([place]) 1 [facility] [place] [address] * Differential, auto (01/28/2025 8:41 AM CDT) Neutrophil abs 3.6 1.5 - 6.5 K/cumm Imm gran abs 0.0 0.0 - 0.1 K/cumm [facility] ([place]) Lymphocyte abs 1.7 0.8 - 3.3 K/cumm [facility] ([place]) Monocyte abs 0.8 0.2 - 0.8 K/cumm [facility] ([place]) Eosinophil abs 0.1 0.0 - 0.5 K/cumm [facility] ([place]) Basophil abs 0.1 0.0 - 0.1 K/cumm [facility] ([place]) Neutrophil pct 57.1 % [facility] ([place]AY[place]) Comment: Interpretive Data Percent cell count reference ranges are not reported, since discordance with absolute values may lead to misinterpretation of CBC data. Current Interpretive Data was last revised on 2018. Imm gran pct 0.3 % [facility] ([place]) Comment: Interpretive Data Percent cell count reference ranges are not reported, since discordance with absolute values may lead to misinterpretation of CBC data. Current Interpretive Data was last revised on 2018. Lymphocyte pct 27.3 % [facility] ([place]) Comment: Interpretive Data Percent cell count reference ranges are not reported, since discordance with absolute values may lead to misinterpretation of CBC data. Current Interpretive Data was last revised on 2018. Monocyte pct 13.1 % [facility] ([place]) Comment: Interpretive Data Percent cell count reference ranges are not reported, since discordance with absolute values may lead to misinterpretation of CBC data. Current Interpretive Data was last revised on 2018. Eosinophil pct 1.4 % [facility] ([place]AY[place]) Comment: Interpretive Data Percent cell count reference ranges are not reported, since discordance with absolute values may lead to misinterpretation of CBC data. Current Interpretive Data was last revised on 2018. Basophil pct 0.8 % [facility] ([place]) Comment: Interpretive Data Percent cell count reference ranges are not reported, since discordance with absolute values may lead to misinterpretation of CBC data. Current Interpretive Data was last revised on 2018. Blood 01/28/2025 8:41 AM CDT 01/28/2025 8:53 AM CDT us Jil Garza MD LAB BLOOD ORDERAB LES Final Result [facility] ([place]) [address] [place] [address] * Tacrolimus level trough (01/28/2025 8:41 AM CDT) [facility] Tacrolimus trough 5.0 ng/mL Comment: Interpretive Data Testing performed by liquid chromatography-tandem mass spectrometry. Therapeutic concentrations vary depending on type of transplanted organ and time elapsed since transplant. Typical trough concentrations range from 5-15 ng/mL. This test was developed and its performance characteristics determined by the [facility] consistent with CLIA requirements. This test has not been cleared or approved by the US Food and Drug administration. Current interpretive data last reviewed 2020. Testing performed by: [facility], [address] [place]., [address] Blood 01/28/2025 8:41 AM CDT 01/28/2025 2:16 PM CDT Narrative [facility] (JAYY) - 01/29/2025 1:52 AM CDT MONTHLY (EVERY 4 WEEKS) us Jil Garza MD LAB BLOOD ORDERAB LES Final Result ALAN DUNLAP ([place]AY[place]) 1 [facility] Department [place] [address] * CBC with auto differential (01/28/2025 8:41 AM CDT) [facility] WBC 6.3 3.8 - 9.9 K/cumm Hgb 14.6 13.0 - 17.5 g/dL [facility] ([place]) Hct 43.7 38.9 - 50.3 % [facility] ([place]) Plt 230 150 - 400 K/cumm [facility] ([place]) MPV 10.8 9.1 - 12.3 fL [facility] ([place]) RBC 5.04 4.30 - 5.80 M/cumm [facility] ([place]) MCV 86.7 81.3 - 96.4 fL [facility] ([place]) MCH 29.0 27.1 - 33.3 pg [facility] ([place]) MCHC 33.4 32.3 - 35.7 g/dL [facility] ([place]) RDW CV 14.2 11.1 - 14.9 % [facility] ([place]) RDW SD 45.3 35.7 - 48.1 fL [facility] ([place]) NRBC abs 0.00 0.00 - 0.01 K/cumm [facility] (JAYY) Blood 01/28/2025 8:41 AM CDT 01/28/2025 8:53 AM CDT Narrative [facility] ([place]) - 01/28/2025 9:01 AM CDT MONTHLY (EVERY 4 WEEKS) us Jil Garza MD LAB BLOOD ORDERAB LES Final Result [facility] ([place]AY[place]) 1 [facility] [place] [address] * (ABNORMAL) Renal function panel (01/28/2025 8:41 AM CDT) Sodium 138 135 - 145 mmol/L Potassium, pl 4.3 3.3 - 4.9 mmol/L [facility] ([place]) Chloride 105 97 - 110 mmol/L [facility] ([place]) CO2 22 22 - 32 mmol/L [facility] ([place]) Anion gap 11 2 - 15 mmol/L [facility] ([place]) BUN 27(H) 6 - 25 mg/dL [facility] ([place]AY[place]) Creatinine 1.14 0.80 - 1.30 mg/dL [facility] ([place]) Glucose 132 70 - 199 mg/dL [facility] ([place]) Comment: Interpretive Data Fasting glucose >/= 126 mg/dl is diagnostic for diabetes. Fasting is defined as no caloric intake for at least 8 hours. Fasting glucose between 100 mg/dl to 125 mg/dl is diagnostic of prediabetes. In a patient with classic symptoms of hyperglycemia or hyperglycemic crisis, a random glucose >/= 200 mg/dl is diagnostic for diabetes. In the absence of unequivocal hyperglycemia, results should be confirmed by repeat testing. The classification and Diagnosis of Diabetes Diabetes Care 202; 46: S19-S40. Current interpretive data was last revised 2022. Calcium 9.4 8.5 - 10.3 mg/dL [facility] ([place]) Phosphorus, pl 3.1 2.3 - 4.5 mg/dL [facility] ([place]) Albumin 4.3 3.5 - 5.0 g/dL [facility] ([place]) Blood 01/28/2025 8:41 AM CDT 01/28/2025 8:53 AM CDT Narrative [facility] ([place]) - 01/28/2025 9:34 AM CDT MONTHLY (EVERY 4 WEEKS) Jil Garza MD LAB BLOOD ORDERAB LES Final Result ALAN DUNLAP ([place]) 1 [facility] [place] [address] * BK virus PCR quantitative Blood (01/07/2025 7:57 AM HAZARDOUS SUBSTANCES ENGINEER) [facility] BKV DNA result, pl Not Detected [facility] Comment: The quantifiable range of this assay is 21.5 IU/mL to 100,000,000 IU/mL (1.33 log IU/mL to 8.00 log IU/mL). Testing was performed by the LIV 6800 BKV Quantatitive Test version 2.0 ([employer] Testing performed at [facility] Current Interpretive Data was last revised on 2021. Testing performed by: [facility], [address] [place]., [address] Blood 01/07/2025 7:57 AM HAZARDOUS SUBSTANCES ENGINEER 01/07/2025 11:51 AM HAZARDOUS SUBSTANCES ENGINEER Narrative ALAN DUNLAP ([place]AY[place]) - 01/09/2025 10:23 AM HAZARDOUS SUBSTANCES ENGINEER MONTHLY (EVERY 4 WEEKS) Jil Garza MD LAB MICROBIOLOGY - GENERAL ORDERABLES Final Result ALAN DUNLAP ([place]AYY) 1 [facility] [place] [address] [facility] * eGFR (01/07/2025 7:57 AM HAZARDOUS SUBSTANCES ENGINEER) eGFR 83 >=60 mL/min/1. 73 m2 Comment: Interpretive Data Reference Interval Normal >/= 90 mL/min/1.73m2 Mildly decreased* 60 - 89 mL/min/1.73m2 Mildly to moderately decreased 45 - 59 mL/min/1.73m2 Moderately to severely decreased 30 - 44 mL/min/1.73m2 Severely decreased 15 - 29 mL/min/1.73m2 Kidney Failure < 15 mL/min/1.73m2 *Relative to young adult level Estimated glomerular filtration rate is determined by the 2020 CKD-EPI equation recommended by the National Kidney Foundation (A Unifying Approach to GFR Estimation: Recommendations of the NKF-ASK Task Force on Reassessing the Inclusion of Race in Diagnosing Kidney Disease, JASN 2020). The CKD-EPI equation should not be used for patients with unstable renal function and has not been validated in children and those over 70. Current interpretive data was last reviewed 2021. Blood 01/07/2025 7:57 AM HAZARDOUS SUBSTANCES ENGINEER 01/07/2025 8:02 AM HAZARDOUS SUBSTANCES ENGINEER us Jil Garza MD LAB BLOOD ORDERAB LES Final Result [facility] ([place]) 1 [facility] [place] [address] * Differential, auto (01/07/2025 7:57 AM HAZARDOUS SUBSTANCES ENGINEER) Neutrophil abs 3.7 1.5 - 6.5 K/cumm Imm gran abs 0.0 0.0 - 0.1 K/cumm [facility] ([place]) Lymphocyte abs 1.6 0.8 - 3.3 K/cumm [facility] ([place]) Monocyte abs 0.8 0.2 - 0.8 K/cumm [facility] ([place]) Eosinophil abs 0.1 0.0 - 0.5 K/cumm [facility] ([place]) Basophil abs 0.1 0.0 - 0.1 K/cumm [facility] ([place]) Neutrophil pct 59.5 % [facility] ([place]) Comment: Interpretive Data Percent cell count reference ranges are not reported, since discordance with absolute values may lead to misinterpretation of CBC data. Current Interpretive Data was last revised on 2018. Imm gran pct 0.3 % [facility] ([place]) Comment: Interpretive Data Percent cell count reference ranges are not reported, since discordance with absolute values may lead to misinterpretation of CBC data. Current Interpretive Data was last revised on 2018. Lymphocyte pct 25.8 % [facility] ([place]AY[place]) Comment: Interpretive Data Percent cell count reference ranges are not reported, since discordance with absolute values may lead to misinterpretation of CBC data. Current Interpretive Data was last revised on 2018. Monocyte pct 12.2 % [facility] ([place]) Comment: Interpretive Data Percent cell count reference ranges are not reported, since discordance with absolute values may lead to misinterpretation of CBC data. Current Interpretive Data was last revised on 2018. Eosinophil pct 1.4 % [facility] ([place]) Comment: Interpretive Data Percent cell count reference ranges are not reported, since discordance with absolute values may lead to misinterpretation of CBC data. Current Interpretive Data was last revised on 2018. Basophil pct 0.8 % [facility] ([place]AY[place]) Comment: Interpretive Data Percent cell count reference ranges are not reported, since discordance with absolute values may lead to misinterpretation of CBC data. Current Interpretive Data was last revised on 2018. Blood 01/07/2025 7:57 AM HAZARDOUS SUBSTANCES ENGINEER 01/07/2025 8:02 AM HAZARDOUS SUBSTANCES ENGINEER us Jil Garza MD LAB BLOOD ORDERAB LES Final Result ALAN DUNLAP ([place]AY[place]) 1 [facility] [place] [address] * Tacrolimus level trough (01/07/2025 7:57 AM HAZARDOUS SUBSTANCES ENGINEER) Tacrolimus trough 4.6 ng/mL Comment: Interpretive Data Testing performed by liquid chromatography-tandem mass spectrometry. Therapeutic concentrations vary depending on type of transplanted organ and time elapsed since transplant. Typical trough concentrations range from 5-15 ng/mL. This test was developed and its performance characteristics determined by the [facility] consistent with CLIA requirements. This test has not been cleared or approved by the US Food and Drug administration. Current interpretive data last reviewed 2020. Testing performed by: [facility], [address] [place]., [address] Blood 01/07/2025 7:57 AM HAZARDOUS SUBSTANCES ENGINEER 01/07/2025 11:47 AM HAZARDOUS SUBSTANCES ENGINEER Narrative [facility] ([place]) - 01/07/2025 1:21 PM HAZARDOUS SUBSTANCES ENGINEER MONTHLY (EVERY 4 WEEKS) us Jil Garza MD LAB BLOOD ORDERAB LES Final Result [facility] ([place]) 1 [facility] [place] [address] * CBC with auto differential (01/07/2025 7:57 AM HAZARDOUS SUBSTANCES ENGINEER) WBC 6.3 3.8 - 9.9 K/cumm Hgb 14.6 13.0 - 17.5 g/dL [facility] ([place]) Hct 43.5 38.9 - 50.3 % [facility] ([place]) Plt 216 150 - 400 K/cumm [facility] ([place]) MPV 10.2 9.1 - 12.3 fL [facility] ([place]) RBC 5.02 4.30 - 5.80 M/cumm [facility] ([place]) MCV 86.7 81.3 - 96.4 fL [facility] ([place]) MCH 29.1 27.1 - 33.3 pg [facility] ([place]) MCHC 33.6 32.3 - 35.7 g/dL [facility] ([place]) RDW CV 13.7 11.1 - 14.9 % [facility] ([place]) RDW SD 43.1 35.7 - 48.1 fL [facility] ([place]) NRBC abs 0.00 0.00 - 0.01 K/cumm [facility] ([place]AY[place]) Blood 01/07/2025 7:57 AM HAZARDOUS SUBSTANCES ENGINEER 01/07/2025 8:02 AM HAZARDOUS SUBSTANCES ENGINEER Narrative [facility] ([place]) - 01/07/2025 8:06 AM HAZARDOUS SUBSTANCES ENGINEER MONTHLY (EVERY 4 WEEKS) us Jil Garza MD LAB BLOOD ORDERAB LES Final Result [facility] ([place]) 1 [facility] [place] [address] * (ABNORMAL) Renal function panel (01/07/2025 7:57 AM HAZARDOUS SUBSTANCES ENGINEER) Sodium 138 135 - 145 mmol/L Potassium, pl 4.7 3.3 - 4.9 mmol/L [facility] ([place]) Chloride 104 97 - 110 mmol/L [facility] ([place]) CO2 26 22 - 32 mmol/L [facility] ([place]) Anion gap 9 2 - 15 mmol/L [facility] ([place]) BUN 26(H) 6 - 25 mg/dL [facility] ([place]) Creatinine 1.08 0.80 - 1.30 mg/dL [facility] ([place]) Glucose 161 70 - 199 mg/dL [facility] ([place]) Comment: Interpretive Data Fasting glucose >/= 126 mg/dl is diagnostic for diabetes. Fasting is defined as no caloric intake for at least 8 hours. Fasting glucose between 100 mg/dl to 125 mg/dl is diagnostic of prediabetes. In a patient with classic symptoms of hyperglycemia or hyperglycemic crisis, a random glucose >/= 200 mg/dl is diagnostic for diabetes. In the absence of unequivocal hyperglycemia, results should be confirmed by repeat testing. The classification and Diagnosis of Diabetes Diabetes Care 2021; 46: S19-S40. Current interpretive data was last revised 2022. Calcium 9.3 8.5 - 10.3 mg/dL [facility] ([place]) Phosphorus, pl 3.2 2.3 - 4.5 mg/dL [facility] ([place]) Albumin 4.3 3.5 - 5.0 g/dL [facility] ([place]AY[place]) Blood 01/07/2025 7:57 AM HAZARDOUS SUBSTANCES ENGINEER 01/07/2025 8:02 AM HAZARDOUS SUBSTANCES ENGINEER Narrative ALAN DUNLAP ([place]AY[place]) - 01/07/2025 8:33 AM HAZARDOUS SUBSTANCES ENGINEER MONTHLY (EVERY 4 WEEKS) Jil Garza MD LAB BLOOD ORDERAB LES Final Result ALAN DUNLAP ([place]AYY) 1 [facility] [place] [address] * (ABNORMAL) Albumin Creatinine Ratio, Urine (10/18/2024 8:00 AM HAZARDOUS SUBSTANCES ENGINEER) Albumin Ur 37.4 mg/L Comment: Interpretive Data No reference range established. Current interpretive data was last revised 2019. Creatinine Ur 59.4 mg/dL ALAN Comment: Interpretive Data No reference range established. Current interpretive data was last revised 2019. Albumin Creatinine Ratio, Ur 63(H) 1 - 29 mg/[facility] Urine 10/18/2024 8:00 AM HAZARDOUS SUBSTANCES ENGINEER 10/18/2024 4:10 PM HAZARDOUS SUBSTANCES ENGINEER Laura Daley NP LAB URINE ORDERABLES Final Resu lt Performing Organization Address City/[facility]/ZIP Co de Phone Number ALAN [phone] [address] [place] [address] * (ABNORMAL) Diabetic Eye Exam (05/03/2024) 05/03/2024 Historical Provider HEALTH MAINTENANCE Final Result * Hepatitis C (HCV) RNA PCR, quantitative Blood (09/29/2023 11:03 AM HAZARDOUS SUBSTANCES ENGINEER) HCV RNA result Not Detected ALAN [facility] Comment: The quantifiable range of this assay is 15 IU/mL to 100,000,000 IU/mL (1.18 log IU/mL to 8.00 log IU/mL). Testing was performed by the LIV 6800 HCV Test ([employer] Testing performed at [facility] Current Interpretive Data was last revised on 2021 Blood 09/29/2023 11:0 3 AM HAZARDOUS SUBSTANCES ENGINEER 09/29/2023 12:10 PM HAZARDOUS SUBSTANCES ENGINEER Narrative ALAN [facility] - 09/30/2023 11:52 AM HAZARDOUS SUBSTANCES ENGINEER This is a regulatory requirement. Please do not draw before the expected date. These labs must be drawn at a specific time point. Jil Garza MD LAB MICROBIOLOGY - GENERAL ORDERABLES Final Result [facility] [place] [address] * PSA screen (08/18/2022 11:55 AM CDT) PSA-Total 3.64 ng/mL [facility] Comment: Interpretive Data AGE SEX REFERENCE INTERVAL 0 minutes-150 years Female None 0 minutes-49 years Male None 50-59 years Male 0-3.90 60-69 years Male 0-5.40 70-79 years Male 0-6.20 80-150 years Male 0-6.20 The [employer] PSA Total assay procedure was used. Results from different manufacturers or methods may not be comparable. Serial testing should be performed using the same method. Current interpretive data last revised 22. Blood 08/18/2022 11:5 5 AM CDT 08/18/2022 12:51 PM CDT Crystal Marti MD LAB BLOOD ORDERABL ES Final Result Performing Organization Address City/[facility]/ZIP Co de Phone Number [facility] [place] [address] * COLONOSCOPY (07/31/2022 8:03 AM CDT) Anatomical Region Laterality Modality Other Narrative Procedure Note Monica Moreau MD - 07/31/2022 8:03 AM CDT [facility] Patient Name: Olga Wynn Procedure Date: 07/31/2022 8:03 AM Date of : 1975 Admit Type: Outpatient Age: 46 Gender: Male Attending MD: Monica Moreau M.D. 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 no family hx of colon cancer Procedure: Colonoscopy Indications: Screening for colorectal malignant neoplasm, Thisis the patient's first colonoscopy Referring MD: MARCELL Nguyen Providers: Monica Moreau M.D. Impression: - One 5 mm polyp in the sigmoid colon, removed witha cold snare. Resected and retrieved. - Diverticulosis in the sigmoid colon. - The distal rectum and anal verge are normal on retroflexion view. Recommendation: - Patient has a contact number available for emergencies. The signs and symptoms of potential delayed complications were discussed with thepatient. Return to normal activities tomorrow. Written discharge instructions were provided to thepatient. - Discharge patient to home (with escort). - Resume previous diet. - Continue present medications. - Await pathology results. - Repeat colonoscopy in 7 years for surveillancebased on pathology results. - Return to primary care physician as previously scheduled. Medicines: Monitored Anesthesia Care Complications: No immediate complications. Estimated Blood Loss: Estimated blood loss was minimal. Procedure: Pre-Anesthesia Assessment: - Prior to the procedure, a History and Physicalwas performed, and patient medications and allergieswere reviewed. The patient is competent. The risks and benefits of the procedure and the sedation optionsand risks were discussed with the patient. Allquestions were answered and informed consent was obtained. 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 Mental Status Examination: normal. Prophylactic Antibiotics: The patient does not require prophylactic antibiotics. Prior Anticoagulants: The patient has taken no anticoagulant or antiplatelet agents. ASA Grade Assessment: III - A patient with severe systemic disease. After reviewing the risks and benefits,the patient was deemed in satisfactory condition to undergo the procedure. The anesthesia plan was touse monitored anesthesia care (MAC). Immediately priorto administration of medications, the patient was re-assessed for adequacy to receive sedatives. The heart rate, respiratory rate, oxygen saturations, blood pressure, adequacy of pulmonary ventilation,and response to care were monitored throughout the procedure. The physical status of the patient was re-assessed after the procedure. The benefits, risks and alternatives of theprocedure and sedation were discussed and informed consentwas obtained. All questions were answered. Please referto the signed informed consent document in the medical record. The bowel preparation used was Miralax via split dose instruction. The bowel preparation usedwas bisacodyl tablets via split dose instruction. The scope was passed under direct vision. TheColonoscope [id number] was introduced through the anus and advanced to the the cecum, identified by appendiceal orifice and ileocecal valve. The colonoscopy was performed without difficulty. The patient tolerated the procedure well. The qualityof the bowel preparation was adequate. Bowel prep was administered using a split dose. Findings: The perianal and digital rectal examinations were normal. A 5 mm polyp was found in the sigmoid colon. The polyp was sessile.The polyp was removed with a cold snare. Resection and retrieval were complete. A few small-mouthed diverticula were found in the sigmoid colon. The retroflexed view of the distal rectum and anal verge was normaland showed no anal or rectal abnormalities. Monica Moreau M.D. 07/31/2022 9:53:46 AM Number of Addenda: 0 Note Initiated On: 07/31/2022 8:03 AM Procedure Code(s): --- Professional --- 27782, Colonoscopy, flexible; with removal of tumor(s), polyp(s), or other lesion(s) by snare technique Diagnosis Code(s): --- Professional --- Z12.11, Encounter for screening for malignant neoplasm of colon D12.5, Benign neoplasm of sigmoid colon K57.30, Diverticulosis of large intestine without perforation orabscess without bleeding CPT copyright 2020 [employer]. All rights reserved. The codes documented in this report are preliminary and upon police officer reviewmay be revised to meet current compliance requirements. Recognized by the [employer] for promoting quality in endoscopy Monica Moreau MD ENDOSCOPY PROCEDURES Final Resul t * DIABETES FOOT EXAM (02/04/2018) Diabetic Foot Exam Unknown Historical Provider HEALTH MAINTENANCE Final Result from Last 3 Months or Most Recently Relevant to Health Maintenance Insurance [facility] CHOICE PLUS MEDICARE [facility] CHOICE PLUS MEDICARE [facility] CHOICE PLUS Advance Directives For more information, please contact: [phone] * Full Code (Latest Code Status on File) Date Activated Date Inactivated Comments 09/01/2023 3:44 PM 09/04/2023 5:56 PM * Full Code Date Activated Date Inactivated Comments 07/31/2022 7:58 AM 07/31/2022 2:58 PM * Full Code Date Activated Date Inactivated Comments 07/31/2022 7:58 AM 07/31/2022 7:58 AM * Full Code Date Activated Date Inactivated Comments 04/28/2022 9:12 AM 04/30/2022 6:44 PM * Full Code Date Activated Date Inactivated Comments 05/23/2021 12:25 AM 06/02/2021 10:04 PM Healthcare Agents on File Name Relationship Healthcare Agent Relationshi p Communication Christina Wynn Mother Health Care Agent Care Teams Agent Contract Clerk Relationship Specialty Start Date End Date Edi Ash PA [address] [place] [address] PCP - General Family Practice 03/29/18 Jonathan Meyer MD [address] [place] [address] Consulting Physician Urology 06/02/21 Claudia Rahman, mixing engineerWashing Machine Loader 09/01/23
--- OUTSIDE RECORDS SUMMARY | 2025-04-04 07:17 | XMS_ITS | Encounter Summary ---
Author Organization [facility] Healthcare Address [address] [place] [address] Care Team Providers Care Facialist Name Role Phone Edi Ash Primary Care Provider [phone] Jonathan Meyer MD Unavailable [phone] Claudia Rahman RN Unavailable Unava ilable Reason for Referral * MRI/CAT/PET Scan (Routine) - Closed Specialty Diagnoses / Procedures Referred By Contac t Referred To Contact Radiology Diagnoses Elevated PSA Procedures MRI PELVIS PROSTATE W WO [place] Urban Dueñ[place] [address] [place] [id number] Phone: tel: fax: [address] [phone] Referral ID Status Reason Start Date Expiration Date Visits Re quested Visits Authorized [id number] Closed 01/12/2025 02/11/2026 1 1 S DRIVER Encounter Details Date Type Department Care Team (Late st Contact Info) Description 01/12/2025 Community Orders [facility] EpicCare Link Urban Dueñ[place] [address] [place] [address] Elevated PSA (Primary Dx) Social History Tobacco Use Types Packs/Day Years Used Date Smoking Tobacco: Never Smokeless Tobacco: Never Alcohol Use Standard Drinks/Week Comments Not Currently [...] relatives? Three times a week 09/02/2023 Attends [employer] Not on file 09/02 Active Member of Clubs or Organizations Not on f ile 09/02/2023 Attends Club or Organization Meetings Not on vicky e 09/02/2023 Are you , , di vorced, , never , or living with a partner? Never 09/02/2023 AUDIT-C Answer Date Recorded Q1: How often do you have a drink containing alcohol? Never 08/13/2023 Q2: How many drinks containi ng alcohol do you have on a typical day when you are drinking? Patient does not drink Q3: How often do you have si x or more drinks on one occasion? Never 08/13/2023 Overall Financial Resource Strain (CARDIA) Answe r [...] making you feel afraid or unsafe? 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 Electronically signed by: Shira Multani M.D. [facility] Landon Dueñas MD IM MRI PROCEDURES Final Resul t documented in this encounter Visit Diagnoses Diagnosis Elevated PSA- Primary Elevated prostate specific antigen (PSA) Elevated PSA Elevated prostate specific antigen (PSA) documented in this encounter Care Teams Facialist Relationship Specialty Start Date End Date Edi Ash PA [address] [place] [address] PCP - General Family Practice 03/29/18 Jonathan Meyer MD [address] [place] [address] Consulting Physician Urology 06/02/21 Claudia Rahman, inpatient auditorRailroad Signal And Switch Operator 09/01/23 documented as of this encounter
--- OUTSIDE RECORDS SUMMARY | 2025-04-04 07:17 | XMS_ITS | Data Portability ---
Author Organization [facility] [place] Address [address] [facility] [place] [address] Care Team Providers Care Jar Capper Name Role Phone MAYCO ASH Primary Care Provider [phone] Assessment No assessment recorded. Plan of Treatment Reminders Order Date Submit Date Provider Last Modified By Organization Details Last Modified Time Details Appointments None recorded. Lab PSA, serum or plasma 2023 024 [facility], [address] [facility], [facility] [place], [address], 4 17:08:17 HbA1c (hemoglobi n A1c), blood 2023 024 [facility] In-Office Order, Internal Use Only DO Not Attach Compendium DO Not Attach Compendium, Do Not Delete/merge, [id number] 4 14:49:54 CBC 2023 024 [facility], [address] [facility], [facility] [address], [place], [address], 4 17:08:18 CMP, serum or plasma 2023 024 [facility], [address] [facility], [facility] [address], [place], [address], 4 17:08:15 lipid panel, serum 2023 024 [facility], [address] [facility], [facility] [address], [place], [address], 4 17:08:14 HbA1c (hemoglobi n A1c), blood 2021 022 [facility] In-Office Order, Internal Use Only DO Not Attach Compendium DO Not Attach Compendium, Do Not Delete/merge, [id number] 18:36:52 Referral urologist referral 2024 025 KIAH Dueñas MD, [address] [facility] , [address], [place], [address], 5 01:27:17 dermatolog ist referral 2022 023 [email or web address] Last MD (Dermatology) , [address] [facility] , [address], [place], [address], 4 13:29:05 Procedures None recorded. Surgeries None recorded. Imaging None recorded. Medication Orders None recorded. Patient TargetsNo targets recorded. Patient Instructions Encounter Date Encounter Id Patient Instructions Last Modified By Organization Details Last Modified Time 05/13/2022 [id number] learning about type 2 diabetes jnanney Not available 05/13/2022 18:21:30 type 2 diabetes: care instructions jnanney Not available 05/13/2022 18:21:30 body mass index: care instructions jnanney Not available 05/13/2022 18:21:30 learning about healthy weight jnanney Not available 05/13/2022 18:21:30 11/05/2023 [id number] A healthy lifestyle: care instructions jnanney Not available 11/05/2023 14:30:07 learning about type 2 diabetes jnanney Not available 11/05/2023 14:28:32 type 2 diabetes: care instructions jnanney Not available 11/05/2023 14:28:32 05/11/2024 [id number] A healthy lifestyle: care instructions jnanney Not available 05/11/2024 16:27:59 11/14/2024 [id number] A healthy lifestyle: care instructions jnanney Not available 11/14/2024 14:39:25 learning about type 2 diabetes jnanney Not available 11/14/2024 14:39:25 type 2 diabetes: care instructions jnanney Not available 11/14/2024 14:39:25 type 2 diabetes: care instructions jnanney Not available 11/14/2024 14:39:25 learning about high blood pressure jnanney Not available 11/14/2024 14:39:25 11/21/2024 [id number] prostate biopsy: about this test jnanney Not available 11/21/2024 11:42:25 Reason for Referral Fork [employer]ift [employer]ic Referral for S creening for cancer Referring Physician: Mayco Ash, [facility], Encounter Date: 11/05/2023 Urologist Referral for Prost ate specific antigen above reference range Referring Physician: Mayco Ash [facility], Encounter Date: 11/21/2024 Results Created Date Observation Date Name Description Value Unit Range Abnormal Flag Note LastModifiedBy Organization Detail LastModifiedTime 05/13/20 22 05/13/2022 HbA1c (hemo globi n A1c), blood HbA1c 7.5 Not Available In-Office Order Internal Use Only DO Not Attach Compendium DO Not Attach Compendium, Do Not Delete/merge, [id number] 05/13/2022 18:20:51 01/10/20 23 01/20/2023 Hemog lobin A1c/H emogl obin. total in Blood hemoglobin A1C/hemoglob in.total in blood 8.1 low: 4high: 5.6 abnormal Hemog lobin A1C 8.1 (A) 4.0 - 5.6 Not Available Not Available 01/10/2025 09:37:35 01/10/20 23 01/20/2023 Hemog lobin A1c/H emogl obin. total in Blood estimated average glucose, POC 186 Estim ated [place] ge Gluco se, POC 186 Not Available Not Available 01/10/2025 09:37:35 01/10/20 23 01/20/2023 Hemog lobin A1c/H emogl obin. total in Blood interpretati on and review of laboratory results Abnorm al Not Available Not Available 09:37:35 11/14/20 24 11/15/2024 LIPID PANEL cholesterol, total 141 mg/dL 100-19 9 Not Available [facility] & [address], [facility], 11/15/2024 17:08:14 11/14/20 24 11/15/2024 LIPID PANEL triglyceride s 38 mg/dL 0-149 Not Available [address], [address], 11/15/2024 17:08:14 11/14/20 24 11/15/2024 LIPID PANEL HDL cholesterol 56 mg/dL >39 Not Available [address], [address], 11/15/2024 17:08:14 11/14/20 24 11/15/2024 LIPID PANEL VLDL cholesterol jacquelyn 9 mg/dL 5-40 Not Available [address], [address], 11/15/2024 17:08:14 11/14/20 24 11/15/2024 LIPID PANEL LDL chol calc (nih) 76 mg/dL 0-99 Not Available [address], [address], 11/15/2024 17:08:14 11/14/20 24 11/15/2024 COMP. METAB OLIC PANEL (14) glucose 142 mg/dL 70-99 above high normal Not Available [address], [address], 11/15/2024 17:08:15 11/14/20 24 11/15/2024 COMP. METAB OLIC PANEL (14) BUN 26 mg/dL 6-24 above high normal Not Available [address], [address], 11/15/2024 17:08:15 11/14/20 24 11/15/2024 COMP. METAB OLIC PANEL (14) creatinine 1.13 mg/dL 0.76-1 .27 Not Available [address], [address], 11/15/2024 17:08:15 11/14/20 24 11/15/2024 COMP. METAB OLIC PANEL (14) eGFR 79 mL/mi n/1.7 3 >59 Not Available [address], [address], 11/15/2024 17:08:15 11/14/20 24 11/15/2024 COMP. METAB OLIC PANEL (14) BUN/creatini ne ratio 23 9-20 above high normal Not Available [address], [address], 11/15/2024 17:08:15 11/14/20 24 11/15/2024 COMP. METAB OLIC PANEL (14) sodium 135 mmol/ L 134-14 4 Not Available [address], [address], 11/15/2024 17:08:15 11/14/20 24 11/15/2024 COMP. METAB OLIC PANEL (14) potassium 5.4 mmol/ L 3.5-5. 2 above high normal Not Available [address], [address], 11/15/2024 17:08:15 11/14/20 24 11/15/2024 COMP. METAB OLIC PANEL (14) chloride 99 mmol/ L 96-106 Not Available [address], [address], 11/15/2024 17:08:15 11/14/20 24 11/15/2024 COMP. METAB OLIC PANEL (14) carbon dioxide, total 24 mmol/ L 20-29 Not Available [address], [address], 11/15/2024 17:08:15 11/14/20 24 11/15/2024 COMP. METAB OLIC PANEL (14) calcium 10.1 mg/dL 8.7-10 .2 Not Available [address], [address], 11/15/2024 17:08:15 11/14/20 24 11/15/2024 COMP. METAB OLIC PANEL (14) protein, total 7.2 g/dL 6.0-8. 5 Not Available [address], [address], 11/15/2024 17:08:15 11/14/20 24 11/15/2024 COMP. METAB OLIC PANEL (14) albumin 4.7 g/dL 4.1-5. 1 Not Available [address], [address], 11/15/2024 17:08:15 11/14/20 24 11/15/2024 COMP. METAB OLIC PANEL (14) globulin, total 2.5 g/dL 1.5-4. 5 Not Available [address], [address], 11/15/2024 17:08:15 11/14/20 24 11/15/2024 COMP. METAB OLIC PANEL (14) bilirubin, total 0.3 mg/dL 0.0-1. 2 Not Available [address], [address], 11/15/2024 17:08:15 11/14/20 24 11/15/2024 COMP. METAB OLIC PANEL (14) alkaline phosphatase 98 IU/L 44-121 Not Available [address], [address], 11/15/2024 17:08:15 11/14/20 24 11/15/2024 COMP. METAB OLIC PANEL (14) AST (SGOT) 24 IU/L 0-40 Not Available [facility] & [address], [address], 11/15/2024 17:08:15 11/14/20 24 11/15/2024 COMP. METAB OLIC PANEL (14) ALT (SGPT) 28 IU/L 0-44 Not Available [facility] & [address], [address], 11/15/2024 17:08:15 11/14/20 24 11/15/2024 PSA (SERI AL MONIT OR) prostate specific Ag 15.7 NG/mL 0.0-4. 0 above high normal Libby ECLIA metho dolog y. Accor ding to the Ameri can U[employer]o gical Assoc iatio n, Serum PSA shoul d decre ase and remai n at undet ectab le level s after radic al prost atect vlad. The AUA defin es bioch emica l recur rence as an initi al PSA value 0.2 ng/mL or great er follo wed by a subse quent confi rmato ry PSA value 0.2 ng/mL or great er. Value s obtai riky with diffe rent assay metho ds or kits canno t be used inter jose sammi . Resul ts canno t be inter prete d as absol keyonna evide nce of the prese nce or absen ce of [place] se. Not Available [address], [address], 11/15/2024 17:08:17 11/14/2011/15/2024 PSA (SERI AL MONIT OR) pdf . Not Available [facility], [address], 11/15/2024 17:08:17 11/14/20 24 11/15/2024 CARDI OVASC ULAR REPOR T interpretati on Note Suppl ement al repor t is avail able. Not Available [facility] & [address], [address], 11/15/2024 17:08:18 11/14/20 24 11/15/2024 CARDI KATHLEEN Plata pdf . Not Available [facility] & [address], [address], 11/15/2024 17:08:18 11/14/20 24 11/15/2024 CBC, PLATE LET, NO DIFFE RENTI AL WBC 6.7 x10e3 /uL 3.4-10 .8 Not Available [address], [address], 11/15/2024 17:08:18 11/14/20 24 11/15/2024 CBC, PLATE LET, NO DIFFE RENTI AL RBC 5.09 x10e6 /uL 4.14-5 .80 Not Available [address], [address], 11/15/2024 17:08:18 11/14/20 24 11/15/2024 CBC, PLATE LET, NO DIFFE RENTI AL hemoglobin 14.8 g/dL 13.0-1 7.7 Not Available [address], [address], 11/15/2024 17:08:18 11/14/20 24 11/15/2024 CBC, PLATE LET, NO DIFFE RENTI AL hematocrit 44.6 % 37.5-5 1.0 Not Available [address], [address], 11/15/2024 17:08:18 11/14/20 24 11/15/2024 CBC, PLATE LET, NO DIFFE RENTI AL MCV 88 fL 79-97 Not Available [address], [address], 11/15/2024 17:08:18 11/14/20 24 11/15/2024 CBC, PLATE LET, NO DIFFE RENTI AL MCH 29.1 pg 26.6-3 3.0 Not Available [address], [address], 11/15/2024 17:08:18 11/14/20 24 11/15/2024 CBC, PLATE LET, NO DIFFE RENTI AL MCHC 33.2 g/dL 31.5-3 5.7 Not Available [address], [address], 11/15/2024 17:08:18 11/14/20 24 11/15/2024 CBC, PLATE LET, NO DIFFE RENTI AL RDW 13.0 % 11.6-1 5.4 Not Available [address], [address], 11/15/2024 17:08:18 11/14/20 24 11/15/2024 CBC, PLATE LET, NO DIFFE RENTI AL platelets 347 x10e3 /uL 150-45 0 Not Available [address], [address], 11/15/2024 17:08:18 11/14/20 24 11/14/2024 HbA1c (hemo globi n A1c), blood HbA1c 7.5 Not Available In-Office Order Internal Use Only DO Not Attach Compendium DO Not Attach Compendium, Do Not Delete/merge, [id number] 11/14/2024 14:38:19 03/20/20 25 03/20/2025 Hemog lobin A1c/H emogl obin. total in Blood hemoglobin A1C, POC 10.2 % low: 4%high : 5.6% abnormal Hemog lobin A1C, POC 10.2 (A) 4.0 - 5.6 % Not Available Not Available 03/20/2025 13:00:25 03/20/20 25 03/20/2025 Hemog lobin A1c/H emogl obin. total in Blood interpretati on and review of laboratory results Abnorm al Not Available Not Available 13:00:25 Result Notes None recorded. Problems Name Problem SNOMED Code Status Onset Date Resolution Date Notes Provider Name and Address Organization Details Recorded Time Pneumonia 974412636 Active 2019 Not Available [facility] 21:25:34 Suspected COVID-19 709193568 Active 2019 Not Available [facility] 21:25:35 Acute respirator y failure 15276181 Active 2019 Not Available [facility] 21:25:35 Uncontroll ed type 2 diabetes mellitus 034295915 Active 2017 Not Available [facility] 21:25:35 Hypertensi ve disorder 90694628 Active 2017 Not Available [facility] 21:25:35 Hyponatrem ia 51069434 Active 2019 Not Available [facility] 21:25:35 Secondary diabetes mellitus 6971537 Active 2019 Not Available [facility] 21:25:35 Hypoxia 130129175 Active Not Available [facility] 21:25:34 Sepsis 38160061 Active 2019 Not Available [facility] 21:25:34 Acute injury of kidney 5117084515007 4108 Active 2019 Not Available [facility] 21:25:35 Essential hypertensi on 95903971 Active 2017 Not Available [facility] 21:25:35 Gastroente ritis 51020712 Active 2019 Not Available [facility] 21:25:35 Dehydratio n 63044311 Active 2019 Not Available [facility] 21:25:34 Acute kidney injury 58454710 Active 2020 Not Available [facility] 21:25:34 Disorder of thyroid gland 75469397 Active 2020 Not Available [facility] 21:25:34 Type 2 diabetes mellitus without complicati on 426434264 Active 2017 Not Available [facility] 21:25:35 Mixed hyperlipid emia 655620439 Active 2019 Not Available [facility] 21:25:34 Problem Notes None recorded. Procedures Surgical History Date Name Laterality Status Provider Name and Address Organization Details Recorded Time tonsillectomy completed Ghada ramesh MA [facility] 02/13/2021 10:36:18 Imaging Results None recorded. Procedure Notes None recorded. Medical Equipment None Reported. Allergies Allergen ID Allergen Name Allergen Category Reaction Reaction Severity Criticality Documentation Date Start Date Code Code System Note Provider Name and Address Organization Details Recorded Time 18424 Product containin g penicilli n (product) medicatio n Not available Not available Not available 09/29/2016 66489 8001 SNOMED JYOTHI Murphy, [facility] 6 12:09:34 Medications Name Sig Start Date Stop Date Status Note LastModified by Organization Details LastModified Time metformin 500 mg tablet Take 500 mg twice a day by oral route. 08/03 completed ON Hold from hospital unless bs is above 150 in evening, kidneys where effected Not Available Not Available Not Available valgancic lovir 450 mg tablet 05/11 completed Not Available Not Available Not Available atorvasta tin 80 mg tablet 80 mg by oral route. 08/03 completed Not Available Not Available Not Available carvedilo l 6.25 mg tablet active Not Available Not Available Not Available atorvasta tin 20 mg tablet TAKE 1 TABLET BY MOUTH ONCE DAILY active Not Available Not Available No t Available pravastat in 40 mg tablet 07/30 completed Not Available Not Available Not Available metoprolo l succinate ER 50 mg tablet,ex tended release 24 hr 07/30 completed Not Available Not Available Not Available fluconazo le 200 mg tablet 11/05 completed Not Available Not Available Not Available lisinopri l 20 mg tablet 40 mg by oral route. 09/03 completed Not Available Not Available Not Available prednison e 5 mg tablet active Not Available Not Available Not Available atenolol 25 mg tablet TAKE 1 TABLET BY MOUTH ONCE DAILY 11/05 completed Not Available Not Available Not Available nifedipin e ER 30 mg tablet,ex tended release 11/05 completed Not Available Not Available Not Available amlodipin e 5 mg tablet TAKE 1 TABLET BY MOUTH ONCE DAILY 07/23 completed Not Available Not Available Not Available sulfameth oxazole 800 mg-trimet hoprim 160 mg tablet 11/14 completed Not Available Not Available Not Available aspirin 81 mg tablet,de layed release active Not Available Not Available Not Available famotidin e 20 mg tablet active Not Available Not Available Not Available magnesium oxide 400 mg (241.3 mg magnesium ) tablet active Not Available Not Available Not Available nifedipin e ER 60 mg tablet,ex tended release 24 hr TAKE 1 TABLET BY MOUTH ONCE DAILY (DO NOT CRUSH, CHEW, OR SPLIT) active Not Available Not Available No t Available tamsulosi n 0.4 mg capsule TAKE ONE CAPSULE BY MOUTH EVERY DAY 2024 active Not Available Not Available Not Avai lable hydrocodo ne 7.5 mg-acetam inophen 325 mg tablet TAKE 1 TABLET BY MOUTH EVERY 6 HOURS NEEDED 05/11 completed Not Available Not Available Not Available metformin 1,000 mg tablet TAKE 1 TABLET BY MOUTH TWICE DAILY WITH MEALS 07/23 completed Not Available Not Available Not Available hydrochlo rothiazid e 25 mg tablet 25 mg by oral route. 08/04 completed Not Available Not Available Not Available diazepam 10 mg tablet TAKE 2 TABLETS BY MOUTH 90 MINUTES BEFORE APPOINTM ENT. PATIENT SHOULD BE NPO FOR 6 HOURS BEFORE. PROGRAM ASSOCIATE IS NEEDED. 11/05 completed Not Available Not Available Not Available levofloxa jeremy 750 mg tablet 750 mg by oral route. 08/09 completed Not Available Not Available Not Available nifedipin e ER 60 mg tablet,ex tended release active Not Available Not Available Not Available lisinopri l 40 mg tablet TAKE 1 TABLET BY MOUTH ONCE DAILY 07/23 completed Not Available Not Available Not Available ondansetr on 4 mg disintegr ating tablet DISSOLVE 1 TABLET IN MOUTH EVERY 6 HOURS NEEDED FOR NAUSEA AND VOMITING active Not Available Not Available No t Available calcitrio l 0.25 mcg capsule TAKE 1 CAPSULE BY MOUTH ONCE DAILY 11/05 completed Not Available Not Available Not Available Senna Plus 8.6 mg-50 mg tablet active Not Available Not Available Not Available mycopheno late sodium 360 mg tablet,de layed release active Not Available Not Available Not Available Levemir FlexPen 100 unit/mL (3 mL) solution subcutane ous insulin pen Inject 16 units every day by subcutan eous route in the morning. 05/11 completed Not Available Not Available Not Available Januvia 100 mg tablet TAKE 1 TABLET BY MOUTH DAILY 07/23 completed Not Available Not Available Not Available hydrochlo rothiazid e 12.5 mg tablet TAKE 1 TABLET BY MOUTH ONCE DAILY 05/11 completed Not Available Not Available Not Available Lantus Solostar U-100 Insulin 100 unit/mL (3 mL) subcutane ous pen Inject 15 units every day by sub-q route. 02/13 completed Bedtime Not Available Not Available Not Available Humalog KwikPen (U-100) Insulin 100 unit/mL subcutane ous Inject 5 units under the skin 3 times a day with meals plus sliding scale 11/05 completed Not Available Not Available Not Available cholecalc iferol (vitamin D3) 50 mcg (2,000 unit) tablet active Not Available Not Available Not Available BD Ultra-Fin e Kathe Pen Needle 32 gauge x 5/32 USE ONE PEN NEEDLE FOR EACH INJECTIO N FOUR TIMES A DAY active Not Available Not Available No t Available Janumet XR 100 mg-1,000 mg tablet,ex tended release Take 1 {tbl} by oral route. 07/23 completed Not Available Not Available Not Available Virtussin AC 10 mg-100 mg/5 mL oral liquid Take 10 mL every 4 hours by oral route for 10 days. 08/14 completed Not Available Not Available Not Available Jardiance 10 mg tablet active Not Available Not Available Not Available ProAir RespiClic k 90 mcg/actua tion breath activated Inhale 2 {puff}s by inhalati on route. 02/13 completed Not Available Not Available Not Available Envarsus XR 1 mg tablet,ex tended release active Not Available Not Available Not Available Tresiba FlexTouch U-100 insulin 100 unit/mL (3 mL) subcutane ous pen 11/14 completed Not Available Not Available Not Available Synjardy XR 25 mg-1,000 mg tablet, extended release Take 1 tablet every day by oral route for 90 days. 08/14 completed Not Available Not Available Not Available OneTouch Ultra Blue Test Strip 02/13 completed Not Available Not Available Not Available Accu-Chek Fastclix Lancet Drum 02/13 completed Not Available Not Available Not Available Lokelma 5 gram oral powder packet 11/05 completed Not Available Not Available Not Available OneTouch Ultra2 Meter 02/13 completed Not Available Not Available Not Available Vitals Date Recorded Body height Body mass index (BMI) Body weight Body temperature Oxygen saturation Oxygen saturation in Arterial blood by Pulse oximetry Heart rate Provider Name and Address Organization Details Last Updated DateTime 2 149.86 cm 38.6 kg/m2 24900.1 4 g 97.9 [degF] 98 % 98 % 71.03 /min Ghada Carter MA [facility] 2 18:02:19 Date Recorded Systolic blood pressure Diastolic blood pressure Provider Name and Address Organization Details Last Updated DateTime 05/13/2022 138 mm[Hg] 80 mm[Hg] Mayco Ash PA-C Attn: Accounting,[address] [place], [address], [place] - [facility] 05/13/2022 18:20:36 Date Recorded Body weight Body mass index (BMI) Body height Heart rate Oxygen saturation Oxygen saturation in Arterial blood by Pulse oximetry Systolic blood pressure Diastolic blood pressure Provider Name and Address Organization Details Last Updated DateTime 3 72604.9 6 g 38.2 kg/m2 149.86 cm 77 /min 97 % 97 % 118 mm[Hg] 76 mm[Hg] Cristel Quach MA [facility] 3 14:11:33 Date Recorded Body height Body mass index (BMI) Body weight Oxygen saturation Oxygen saturation in Arterial blood by Pulse oximetry Heart rate Systolic blood pressure Diastolic blood pressure Provider Name and Address Organization Details Last Updated DateTime 4 149.86 cm 31.8 kg/m2 95806.4 g 97 % 97 % 88 /min 144 mm[Hg] 76 mm[Hg] Cristel Quach MA [facility] 4 16:13:57 Date Recorded Body height Body mass index (BMI) Body weight Oxygen saturation Oxygen saturation in Arterial blood by Pulse oximetry Heart rate Systolic blood pressure Diastolic blood pressure Provider Name and Address Organization Details Last Updated DateTime 4 149.86 cm 35.4 kg/m2 59823.3 6 g 98 % 98 % 63 /min 139 mm[Hg] 77 mm[Hg] Cristel Quach [place] [facility] 4 14:30:56 Social History Question Answer Notes LastModified by Organizat ion Details LastModified Time Tobacco Smoking Status Never Smoker Not Available [facility] 09/18/2020 03:43:23 Do You Have An Advance Directive? No Information not available 02/13/2021 Are You Blind Or Do You Have Difficulty Seeing? No Information not available 02/13/2021 What Is Your Level Of Caffeine Consumption? Occasional Information not available 02/13/2021 How Much Tobacco Do You Chew? None [id number] Information not available 09/18/2020 In The 14 Days Before Symptom Onset, Have You Had Close Contact With A Laboratory-confi rmed COVID-19 While That Case Was Ill? No Information not available 02/13/2021 In The 14 Days Before Symptom Onset, Have You Had Close Contact With A Person Who Is Under Investigation For COVID-19 While That Person Was Ill? No Information not available 02/13/2021 Have You Been To An Area Known To Be High Risk For COVID-19? No Was In Hosp About 2 Weeks Ago Positive Information not available 05/13/2022 Are You Deaf Or Do You Have Serious Difficulty Hearing? No Information not available 02/13/2021 What Type Of Diet Are You Following? DIABETIC [id number] Information not available 09/18/2020 Which Illicit Or Recreational Drugs Have You Used? None [id number] Information not available 09/18/2020 Marital Status Single Informatio n not available 08/14/2020 What Was The Date Of Your Most Recent Tobacco Screening? 11/21/2024 Information not available 11/21/2024 What Is Your Relationship Status? Single Information not available 02/13/2021 Do You Use Your Seat Belt Or Car Seat Routinely? Yes Information not available 02/13/2021 Do You Have Smoke And Carbon Monoxide Detectors In Your Home? Yes Information not available 07/23/2021 Are You Passively Exposed To Smoke? No Information not available 07/23/2021 How Much Tobacco Do You Smoke? No [id number] Information not available 09/18/2020 Has Tobacco Cessation Counseling Been Provided? No Information not available 07/23/2021 On What Date Was Tobacco Cessation Counseling Provided? 11/21/2024 Information not available 11/21/2024 Sex: Male Functional Status Question Answer Note LastModified by Organizat ion Details LastModified Time Do you use any illicit or recreational drugs? No Information not available 02/13/2021 Do you or have you ever used any other forms of tobacco or nicotine? No Information not available 02/13/2021 What is your level of alcohol consumption? None Not since Jul Information not available 02/13/2021 Do you or have you ever used smokeless tobacco? Never used smokeless tobacco [id number] Information not available 09/18/2020 Are you currently employed? Yes Information not available 02/13/2021 Are you able to care for yourself? 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 Never used electronic cigarettes [id number] Information not available 09/18/2020 What is your exercise level? Moderate Information not available 02/13/2021 Mental Status Question Answer Note LastModified by Organization D etails LastModified Time Do you feel stressed (tense, restless, nervous, or anxious, or unable to sleep at night)? [id number] Information not available 02/13/2021 Family History Relationship Description Onset Age of this Age Resolved Age Notes LastModified by Organization Details LastModified Time Father Diabetes mellitus 72 [email or web address] Not available 2020 10:32:58 Father Carcinoma of prostate [email or web address] Not available 2020 10:33:30 Father Malignant neoplasm of liver [email or web address] Not available 2020 10:33:40 Mother Heart disease [email or web address] Not available 2020 10:33:09 Medical History Condition Response Coronary Artery Disease N Other N High Blood Pressure N Atrial Fibrillation N Thyroid Problems N Kidney or Bladder Problems N GI Problems N Depression N COPD N Blood Clots N Skin Problems N Eating Disorder N Anemia N Heart Attack (CT) N Anxiety Disorder N Diabetes Y Muscle, Joint, or Bone Problems N Seizures/Epilepsy N Acid Reflux (GERD) N Cancer N Stroke N Asthma N Allergies N ADHD N Substance Abuse N High Cholesterol Y Hepatitis N Liver Disease N Schizophrenia N Headaches N Heart Failure N Osteoporosis N Immunizations Vaccine Type Date Status Note Provider Nam e and Address Organization Details Recorded Time COVID-19, mRNA, LNP-S, PF, 100 mcg/0.5mL dose or 50 mcg/0.25mL dose 02/15/2021 completed JYOTHI Hernandez, [facility] 02/15/2021 13:12:36 COVID-19, mRNA, LNP-S, PF, 100 mcg/0.5mL dose or 50 mcg/0.25mL dose 03/15/2021 completed JYOTHI Blunt, [place] [facility] 03/15/2021 15:42:26 Past Encounters Encounter ID Performer Location Encounter Start Date Encounter Closed Date Diagnosis/Indication Diagnosis SNOMED-CT Code Diagnosis ICD10 Code Diagnosis Note [id number] DEB Robles [address] [place] [address] 09/29/2016 12:06:37 09/29/2016 12:49:31 Laceration of finger 809680072 S61.219A [id number] DEB Robles [address] [place] [address] 10/12/2017 09:31:00 10/12/2017 16:13:20 Essential hypertension 53677838 I10 Type 2 christina betes mellitus 64135587 E11.9 Upper resp iratory infection 78862897 J06.9 [id number] DEB Robles [address] [place] [address] 10/19/2017 14:24:45 10/19/2017 17:12:39 Diabetes mellitus 36575600 E11.9 [id number] Mayco Ash PA-C [facility] [address] [place] [address] 11/17/2017 09:54:50 11/17/2017 15:48:49 Diabetes mellitus 97419769 E11.9 [id number] Orestes Casillas MD [facility] [address] [place] [address] 2017 16:08:43 2017 18:18:02 Type 2 diabetes mellitus 41511057 E11.9 [id number] Mayco Ash PA-C [facility] [address] [place] [address] 08/14/2020 16:56:46 08/15/2020 11:06:38 Essential hypertension 22637853 I10 Type 2 christina betes mellitus without complication 065169444 E11.9 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 [id number] Orestes Casillas MD [facility] [address] [place] [address] 08/21/2020 09:44:44 08/23/2020 10:49:24 Type 2 diabetes mellitus 64616139 E11.9 [id number] Orestes Casillas MD [facility] [address] [place] [address] 02/13/2021 10:22:54 02/14/2021 07:07:53 Essential hypertension 65107437 I10 Hyperlipidemia 99562348 E78.2 Thoracic back pain 43789 8004 M54.6 Trigger fi nger of left hand 6197636881 6921246 M65.852 [id number] MD Timbo Blunt 14 IM [address] [facility] [place] [address] 02/15/2021 11:44:38 02/18/2021 16:18:48 Administration of SARS-CoV-2 antigen vaccine 075102898 Z23 [id number] MD Timbo Blunt 14 IM [address] [facility] [place] [address] 03/15/2021 15:33:24 03/17/2021 09:30:36 Administration of SARS-CoV-2 antigen vaccine 684207900 Z23 [id number] Orestes Casillas MD [facility] [address] [place] [address] 07/23/2021 17:45:52 07/23/2021 18:41:37 Essential hypertension 55603194 I10 [id number] Mayco Ash PA-C [facility] [address] [place] [address] 08/20/2021 17:48:10 08/29/2021 06:40:01 Chronic kidney disease 718220932 N18.32 [id number] Orestes Casillas MD [facility] [address] [place] [address] 05/13/2022 17:38:03 05/13/2022 18:54:21 Post-acute COVID-19 1227689016 U07.1 Type 2 christina betes mellitus 76534367 E11.9 Body mass index 30+ - obesity 826916171 Z68.38 [id number] Mayco Ash PA-C [facility] [address] [place] [address] 11/05/2023 13:56:46 11/06/2023 15:23:46 Type 2 diabetes mellitus 93696219 E11.9 History of renal transplant 426957573 Z48.22 Screening for cancer 158 32826 Z19.1 Overweight 989239299 E66 .3 [id number] Orestes Casillas MD [facility] [address] [place] [address] 05/11/2024 16:00:09 05/12/2024 21:08:36 History of renal transplant 049935004 Z48.22 Overweight 625811774 E66 .3 [id number] Orestes Casillas MD [facility] [address] [place] [address] 11/14/2024 14:14:09 11/15/2024 12:40:30 Essential hypertension 76799438 I10 Type 2 christina betes mellitus without complication 798659851 E11.9 Type 2 christina betes mellitus 17877920 E11.9 Screening for malignant neoplasm of prostate 165493402 Z12.5 Overweight 836236019 E66 .3 [id number] Orestes Casillas MD [facility] [address] [place] [address] 11/21/2024 11:27:44 11/25/2024 08:35:25 Prostate specific antigen above reference range 024187953 R97.20 Health Concerns Section Related Observation LastModified by Organization Detai ls LastModified Time None Recorded Concern Status LastModified by Organization Details LastModified Time None Recorded Advance Directives Directive N: Payers Encounter Date Sequence Insurance Name Policy Number Policy Gao Covered Member ID Gao Member ID Guarantor Name 05/13/2022 1 [facility] ([facility] [id number] Fransico Bridget Wynn [id number] Fransicocarmela Wynn 11/05/2023 1 [facility] ([facility]) [id number] Fransico E [place] [id number] Fransico [place] 05/11/2024 1 [facility] ([facility]) [id number] Fransico E [place] [id number] Fransico [place] 05/11/2024 [place] [id number] Fr[place]ico [place] 11/14/2024 1 [facility] ([facility]) [id number] Fransico E [place] [id number] Fransico [place] 11/14/2024 2 [place] [id number] Fransico [place] 11/21/2024 1 [facility] ([facility]) [id number] Fransico E [place] [id number] Fransico [place] 11/21/2024 2 [place] [id number] Fr[place]ico [place] Notes Date Note Type Note Provider Name and Address Organization Details Recorded Time 05/13/2022 text/html was hospitalized for covid...feels better now but was in for a week...was vaccinated fully as well Myaco Ash PA-C Attn: Accounting,[address] [facility], [place], [address], [facility] 05/13/2022 18:22:01 11/05/2023 text/html hx of kidney transplant...needed follow up...things are well...keeps up with specialists for diabetes and kidney...needs a picture painter due to high risk of skin cancer.. Mayco Ash PA-C Attn: Accounting[address] [facility], [place], [address], [place] - [facility] 11/05/2023 14:31:39 05/11/2024 text/html here for 6 months...has had a renal transplant...has transplant team that monitors his kidney function... Mayco Ash PA-C Attn: Accounting[address] [facility], [place], [address], [place] - [facility] 05/11/2024 16:30:49 11/14/2024 text/html check up...no complaints..hx of renal transplant htn and diabetes... Ghada Carter MA null, [place] [facility] 11/14/2024 14:50:41 11/21/2024 text/html discuss psa Mayco Ash PA-C Attn: Accounting[address] [facility], [place], [address], [place] - [facility] 11/21/2024 11:44:18
--- OUTSIDE RECORDS SUMMARY | 2025-04-04 07:18 | XMS_ITS ---
Author Organization [facility] Address [address] [place] [address] Care Team Providers Care Precision Filer Hand Name Role Phone Edi Ash Primary Care Provider [phone] Jonathan Meyer MD Unavailable [phone] Claudia Jenkins RN Unavailable Unava ilable Transplant Episode Kidney Recipient [facility] ([place], [place]) - [facility] Organ Received: Left Kidney Transplanted on 09/01/2023 Marked as Active Follow-up on 09/01/2023 Reason: Transplanted at [facility] Kidney CoordinatorClaudia Rahman RN Phone: N/A Fax: N/A Email: N/A Donor Information Organ ABO Source Meets Risk Criteria HLA Match Mismatches Cross Match Left Kidney Transplanted O Positive Live A: B: DR: Left Kidney Donor Serology Results Anti-CMV CMV IgG: Positive EBV IgG EBV VCA IgG: See Comment Anti-HBcAb HBC Total: Nonreactive HBsAg HBsAg: Nonreactive HBV DNA HBV DNA: Not Detected Anti-HCV HCV Ab: Nonreactive HCV RNA: Not Detected Anti-HIV I/II HIV RNA: Not Detected HIV Ag/Ab Combo Assay: Nonreactive Anti-HTLV I/II No results on file RPR/VDRL RPR: Nonreactive EBV IgM EBV VCA IgM: See Comment HBsAb HBsAb: Reactive EBNA No results on file SARS CoV-2 SARS CoV-2 RNA: Negative Care Team Name Role Phone Fax Email Claudia Levon Josiah, RN Kidney Coordinator N/A N/A N/A Claudia Rahman, dictating machine typistBusiness Account Executive N/A N/A N/A Param Pennington MD Referring Physician [phone] N/A Latonia Chu Primary Diagrammer And Seamer N/A N/A N/A Walter Garcia, RN Secondary Coordinator Secondary Post Kidney Coordinator [phone] N/A N/A Hansa Thompson RN Pre Coordinator [phone] N/A Reshma Nielsen Secondary Diagrammer And Seamer N/A N/A N/A Lisa Downing Services Program Manager [phone] N/A N/A Events Post-Transplant Pre-Transplant Admitted: 09/01/2023 Referred: 05/26/2022 Transplanted: 09/01/2023 Evaluation began: 2 Discharged: 09/04/2023 Committee: 05/18/2023 Center waitlisted: 3
--- OUTSIDE RECORDS SUMMARY | 2025-04-04 07:18 | XMS_ITS | Clinical Summary ---
Author Organization [facility] Facility Address [address] [address] Care Team Providers Care Inpatient Auditor Name Role Phone Edi Ash Primary Care Provider [phone] Allergies Active Allergy Reactions Criticality Noted Date Comments Penicillins 06/05/2021 Medications atorvastatin (LIPITOR) 20 MG tablet Take 20 mg by mouth 1 (one) time each day Active NIFEdipine XL (PROCARDIA XL) 60 MG 24 hr tablet Take 1 tablet (60 mg total) by mouth 1 (one) time each day Do not crush, chew, or split. 30 tablet 5 07/22/2023 Active tamsulosin (FLOMAX) 0.4 MG 24 hr capsule TAKE 1 CAPSULE BY MOUTH ONCE DAILY WITH SUPPER 30 capsule 08/11/2023 Active magnesium oxide (MAG-OX) 400 MG tablet Take 400 mg by mouth 1 (one) time each day Active sennosides-docu sate sodium (SENOKOT-S) 8.6-50 MG tablet Take 1 tablet by mouth 1 (one) time each day Active tacrolimus (PROGRAF) 1 MG capsule Take 2 mg by mouth in the morning and 2 mg in the evening. Active aspirin (ST DANYA) 81 MG EC tablet Take 81 mg by mouth 1 (one) time each day Active cholecalciferol (VITAMIN D-3 SUPER STRENGTH) 50 MCG (2000 UT) tablet Take 2,000 Units by mouth 1 (one) time each day Active insulin detemir (LEVEMIR) 100 UNIT/ML injection Inject 10 Units under the skin 1 (one) time each day Active insulin lispro protamine-insul in lispro (HumaLOG 50-50) (50-50) 100 UNIT/ML inj pen Inject 3 Units under the skin 3 (three) times a day if needed Active carvedilol (COREG) 6.25 MG tablet Take 6.25 mg by mouth in the morning and 6.25 mg in the evening. Take with meals. Active Insulin Degludec (TRESIBA SC) Inject 8 Units under the skin Active Empagliflozin (Jardiance) 10 MG tablet Take 10 mg by mouth 1 (one) time each day in the morning Active acetaminophen (TYLENOL) 500 MG tablet Take 500 mg by mouth every 6 (six) hours if needed for mild pain Active Mycophenolate Sodium (Mycophenolic Acid) 360 MG tablet delayed-release Take 360 mg by mouth 1 (one) time each day Active famotidine (PEPCID) 20 MG tablet Take 20 mg by mouth 1 (one) time each day Active Active Problems No known active problems Encounters Date Type Department Care Team Description 01/12/2025 Documentation Only [facility] [address] [facility] [place] [address] Param Pennington MD 01/11/2025 4:30 PM CAT SCAN TECHNOLOGIST Office Visit [facility] [address] [facility] [place] [address] Param Penningotn MD Chronic kidney disease, stage 2 (mild) (Primary Dx); Kidney replaced by transplant; Hypertension from Last 3 Months Family History Medical History Relation Comments Cancer Father Diabetes Father Hypertension Father Cancer Father's Brother Cancer Father's Sister Heart disease Mother Hypertension Mother Seizures Mother Cancer Paternal Grandmother Hypothyroidism Sister Relation Status Comments Father Father's Brother Father's Sister Mother Alive Paternal Grandmother Sister Alive Social History Tobacco Use Types Packs/Day Years Used Date Smoking Tobacco: Never Smokeless Tobacco: Never Tobacco Cessation:Counseling Given: Not Answered Alcohol Use Standard Drinks/Week Comments Not Currently 0 (1 standard drink = 0.6 oz pur e alcohol) Quit 07/2020 Sex and Gender Information Value Date Recorded Sex Assigned at Not on file Legal Sex Male 6:10 PM EDT Gender Identity Not on file Sexual Orientation Not on file Last Filed Vital Signs Vital Sign Reading Time Taken Comments Blood Pressure 162/80 01/11/2025 3:05 PM CAT SCAN TECHNOLOGIST Pulse 97 01/11/2025 3:05 PM CAT SCAN TECHNOLOGIST Temperature 36.7 C (98.1 F) 01/11/2025 3:05 PM CAT SCAN TECHNOLOGIST Respiratory Rate - - Oxygen Saturation 96% 01/11/2025 3:05 PM CAT SCAN TECHNOLOGIST Inhaled Oxygen Concentration - - Weight 87.8 kg (193 lb 8 oz) 01/11/2025 3:05 PM CAT SCAN TECHNOLOGIST Height 152.4 cm (5') 01/11/2025 3:05 PM CAT SCAN TECHNOLOGIST Body Mass Index 37.79 01/11/2025 3:05 PM CAT SCAN TECHNOLOGIST Plan of Treatment Upcoming Encounters Date Type Department Care Team (Late st Contact Info) Description 08/09/2025 4:15 PM CDT Office Visit [facility] [address] [facility] [address] [place] [address] Param Pennington MD [address] [facility] [address] [place] [address] Health Maintenance Due Date Last Done Comments Hepatitis B Vaccine (1 of 3 - 19+ 3-dose series) 1992 Pneumococcal Vaccine: 50+ Ye ars (1 of 2 - PCV) 1992 Diabetes: Ophthalmology Exam 06/05/2021 Diabetes: Pedal Pulse Checked 06/05/2021 Diabetes: Sensory Foot Exam 06/05/2021 Diabetes: Visual Foot Exam 06/05/2021 Colorectal Cancer Screening: Annual FOBT 2022 Colorectal Cancer Screening: Sigmoidoscopy 2022 Diabetes: Hemoglobin A1C 03/03/2025 025, 09/06/2024, 08/20/2024, Additional history exists Influenza Vaccine (Season Ended) 2025 Colorectal Cancer Screening: Colonoscopy 07/31/2032 07/31/2022, 07/09/2022 Procedures Procedure Name Priority Date/Time Associated Diagnosis Comments HEMOGLOBIN A1C Routine 01/10/2023 from Last 3 Months or Most Recently Relevant to Health Maintenance Results * (ABNORMAL) Hemoglobin A1c (01/10/2023) Hemoglobin A1C 8.1(A) 4.0 - 5.6 Estimated Average Glucose, POC 186 Blood (Blood, Venous) 01/10/2023 us Historical Provider LAB BLOOD ORDERABLES Beth l Result from Last 3 Months or Most Recently Relevant to Health Maintenance Insurance [facility] Medicare Care Teams Inpatient Auditor Relationship Specialty Start Date End Date Edi Ash PA [address] [place] [address] PCP - General Internal Medicine 06/05/21
--- OUTSIDE RECORDS SUMMARY | 2025-04-04 07:18 | XMS_ITS | Clinical Summary ---
Author Organization [facility] Address [address] [place] [address] Care Team Providers Care Sample Patternmaker Name Role Phone Unavailable Primary Care Provider Unavailabl e Social History Tobacco Use Types Packs/Day Years Used Date Smoking Tobacco: Never Assessed Sex and Gender Information Value Date Recorded Sex Assigned at Not on file Legal Sex Male 4:34 PM CDT Gender Identity Not on file Sexual Orientation Not on file Plan of Treatment Health Maintenance Due Date Last Done Comments Colorectal Cancer Screening Colonoscopy (10 Years) 1973 Annual Physical 1976 Hepatitis C 1991 DTaP, Tdap and Td Vaccines ( 1 - Tdap) 1992 Hepatitis B Vaccines (1 of 3 - 19+ 3-dose series) 1992 Pneumococcal Vaccine: 50+ Ye ars (1 of 1 - PCV) 2023 Zoster Vaccines (1 of 2) 2023 COVID-19 Vaccine ( - 2023-2 5 season) 2024 Meningococcal B Vaccine Aged Out No l onger eligible based on patient's age to complete this topic Meningococcal Vaccine Aged Out No favian cinthia eligible based on patient's age to complete this topic RSV Immunizations Under 20 Months Aged Out No longer eligible based on patient's age to complete this topic Insurance [facility]
--- OUTSIDE RECORDS SUMMARY | 2025-04-04 07:18 | XMS_ITS | Referral Summary ---
Author Organization [facility] Medical Office Building B Address [address] [place] [address] Care Team Providers Care Motivational Speaker Name Role Phone Edi Ash Primary Care Provider [phone] Jonathan Meyer MD Unavailable [phone] Claudia Rahman RN Unavailable Unava ilable Encounters Date Type Department Care Team Description 03/20/2025 10:00 AM CDT Office Visit [facility] Diabetes Endocrine Care at [address] [address] Laura Daley, CHRIS Type 2 diabetes mellitus without complication, with long-term current use of insulin (HCC) (Primary Dx); Mixed diabetic hyperlipidemia associated with type 2 diabetes mellitus (HCC); Primary hypertension; Class 2 severe obesity due to excess calories with serious comorbidity and body mass index (BMI) of 37.0 to 37.9 in adult (HCC) 02/25/2025 8:05 AM CDT Lab [address] [address] Transplanted kidney; Encounter for long-term (current) use of high-risk medication; Hyperlipidemia, unspecified hyperlipidemia type 02/22/2025 9:43 AM CDT Anesthesia Event [facility] Operating Room [address] [place] [address] Endy Glaser, DO 02/22/2025 9:45 AM CDT - 02/22/2025 10:30 AM CDT Surgery [facility] Operating Room [address] [place] [address] Urban Dueñas MD URONAV GUIDED PROSTATE BIOPSY 02/22/2025 8:08 AM CDT - 02/22/2025 11:00 AM CDT Hospital Encounter [facility] Operating Room [address] [place] [address] Urban Dueñas MD Elevated PSA Discharge Disposition: Discharge to home or self care 02/14/2025 Telephone [facility] Transplant Kidney [address] [facility] [address] [phone] [place] [address] Evi Richards 02/02/2025 Telephone [facility] Transplant Kidney [address] [facility] 3401 [address] [phone] [place] [address] Claudia Rahman RN 02/01/2025 8:09 AM CDT - 02/01/2025 11:59 PM CDT Hospital Encounter [facility] Imaging and Radiology [id number] [place] [address] Elevated PSA Discharge Disposition: Discharge to home or self care 01/28/2025 8:20 AM CDT [address] [address] Transplanted kidney; Encounter for long-term (current) use of high-risk medication 01/13/2025 Telephone [facility] Transplant Kidney [address] [facility] 3401 Mail[address] [phone] [place] [address] Elian Shane RN 01/12/2025 Community Orders [facility] EpicCare Link Urban Dueñas MD Elevated PSA (Primary Dx) 01/07/2025 7:55 AM PROP SAWYER [address] [address] Transplanted kidney; Encounter for long-term (current) use of high-risk medication from Last 3 Months Allergies Active Allergy Reactions Criticality Noted Date Comments Cephalexin Rash,Chills Medium 08/25/2023 Per mother, found out when he had transplant Penicillins Rash Medium Per mother, happened when patient was an infant Medications tamsulosin (FLOMAX) 0.4 mg extended release capsule TAKE ONE CAPSULE BY MOUTH EVERY DAY WITH DINNER 30 capsule 3 Active Senna Plus 8.6-50 mg TAKE ONE TABLET BY MOUTH EVERY DAY 30 tablet 11 4 Active cholecalcifero l (VITAMIN D-3) 2000 unit tablet TAKE ONE TABLET BY MOUTH EVERY DAY 30 tablet 11 4 Active carvediloL (COREG) 6.25 mg tablet TAKE ONE TABLET BY MOUTH TWICE A DAY WITH MEALS 60 tablet 10 4 Active aspirin 81 mg enteric coated tablet TAKE ONE TABLET BY MOUTH EVERY DAY 30 tablet 11 4 Active NIFEdipine CC 60 mg 24 hr tabletIndicati ons:Kidney replaced by transplant TAKE 1 TABLET BY MOUTH 2 TIMES A DAY 60 tablet 11 4 Active predniSONE (DELTASONE) 5 mg tablet [...] different from the original. Pharmacy: [facility] Specialty: [facility] Specialty Program Labs: [facility] S/O'S MONTHLY: FK, BK (09-02-2025); Q3 (07-08-2025) : [facility] Problem Noted Date Diagnosed Date Elevated PSA 02/14/2025 Class 2 severe obesity due t o excess calories with serious comorbidity and body mass index (BMI) of 37.0 to 37.9 in adult 12/17/2023 Assessment & Plan (10/18/2024 9:07 AM PROP SAWYER): This is a chronic condition which continues [...] loss Assessment & Plan (12/17/2023 2:31 PM PROP SAWYER): This is a chronic condition which has [...] 08/20/2020 Assessment & Plan (10/18/2024 9:09 AM PROP SAWYER): This is a chronic condition which is [...] prescribed. Assessment & Plan (12/17/2023 2:27 PM PROP SAWYER): This is a chronic condition which is [...] prescribed. Assessment & Plan (12/16/2022 1:52 PM PROP SAWYER): This is a chronic condition which is [...] Lipitor Assessment & Plan (11/22/2021 9:33 AM PROP SAWYER): This is a chronic condition which is [...] . Assessment & Plan (11/14/2020 6:00 PM PROP SAWYER): This is a chronic condition which is [...] 12/07/2017 Assessment & Plan (10/18/2024 9:42 AM PROP SAWYER): This is a chronic condition which is [...] carvedilol Assessment & Plan (12/17/2023 2:27 PM PROP SAWYER): This is a chronic condition which is [...] atorvastatin Assessment & Plan (12/16/2022 1:51 PM PROP SAWYER): This is a chronic condition which is [...] exam. last dilated eye exam was at [facility]. Monofilament foot exam completed, protective senses [...] No history of macrovascular disease - CVA, SD. Assessment & Plan (09/15/2022 3:40 PM CDT): [...] exam. last dilated eye exam was at [facility]. Monofilament foot exam completed, protective senses [...] No history of macrovascular disease - CVA, SD. Assessment & Plan (02/20/2022 9:00 AM CDT): [...] Kidney function-abnormal. Sees Dr. Pennington. B/P today- currently on atenolol. At Goal blood pressure is <140/90, Personally reviewed LDL -49. on atorvastatin 20 mg daily . below Goal of less than 70. Lab repeated. No history of macrovascular disease - CVA, SD. Assessment & Plan (11/22/2021 9:28 AM PROP SAWYER): This is a chronic condition which has [...] Kidney function-abnormal. Sees Dr. Pennington. B/P today- currently on atenolol. At Goal blood pressure is <140/90, Personally reviewed LDL -49. on atorvastatin 20 mg daily . below Goal of less than 70. Lab repeated. No history of macrovascular disease - CVA, SD. Assessment & Plan (05/22/2021 10:15 AM CDT): [...] 70 history of macrovascular disease - CVA, SD. Assessment & Plan (02/13/2021 7:52 PM CDT): [...] 70 history of macrovascular disease - CVA, SD. Assessment & Plan (11/14/2020 5:59 PM PROP SAWYER): This is a chronic condition which is [...] 70 history of macrovascular disease - CVA, SD. Assessment & Plan (10/01/2020 12:40 PM PROP SAWYER): This is a chronic condition which is [...] 70 history of macrovascular disease - CVA, SD. Assessment & Plan (08/20/2020 1:10 PM CDT): [...] last dilated eye exam was completed in [facility], 2 weeks ago. Monofilament foot exam completed, protective senses intact Urine microalbumin/creatinine ratio - abnormal currently lisinopril 20 mg daily 08/07/2020 Kidney function eGRF- 64, BUN- 23, creatinine- 1.321 BP today- 130/82 , currently on lisinopril 20 mg po daily, amlodipine 5mg po daily LDL - 156 (07/31/20), currently on atorvastatin 80 mg daily No history of macrovascular disease - CVA, SD. Continue on 60 gm/meal low carb diet [...] last dilated eye exam was completed in [facility], 2 weeks ago. Monofilament foot exam completed, protective senses intact Urine microalbumin/creatinine ratio - abnormal currently lisinopril 20 mg daily 08/07/2020 Kidney function eGRF- 64, BUN- 23, creatinine- 1.321 BP today- 130/82 , currently on lisinopril 20 mg po daily LDL - 156 (07/31/20), currently on atorvastatin 80 mg daily No history of macrovascular disease - CVA, SD. Assessment & Plan (08/07/2020 12:19 PM CDT): Glucose 201 on presentation to ER but glucose levels now improved. Will continue home Lantus with sliding scale insulin as needed. Hold home metformin due to elevated creatinine. Will adjust treatment as needed. Primary hypertension 12/07/2017 Assessment & Plan (10/18/2024 9:08 AM PROP SAWYER): This is a chronic condition which is [...] prescribed. Assessment & Plan (12/17/2023 2:28 PM PROP SAWYER): This is a chronic condition which is [...] prescribed. Assessment & Plan (12/16/2022 1:51 PM PROP SAWYER): This is a chronic condition which is [...] monitor Assessment & Plan (11/22/2021 9:32 AM PROP SAWYER): This is a chronic condition which is [...] prescribed. Assessment & Plan (11/14/2020 6:01 PM PROP SAWYER): This is a chronic condition and is [...] (07/11/2022): Added automatically from request for surgery [id number] COVID-19 04/27/2022 03/16/2023 Assessment & Plan (04/28/2022 [...] No history of macrovascular disease - CVA, SD. Assessment & Plan (02/20/2022 12:05 PM CDT): [...] No history of macrovascular disease - CVA, SD. Hyperkalemia 05/23/2021 03/16/2023 Diabetes mellitus due to und erlying condition, controlled 05/23/2021 02/20/2022 Urinary retention 05/23/2021 03/16/2023 Thyroid enlargement 05/22/2021 09/15/20 22 Assessment & Plan (09/15/2022 3:40 PM CDT): [...] right edd thyroid on image 9 of . TR 3. It does not meet criteria [...] identified. Assessment & Plan (11/22/2021 9:32 AM PROP SAWYER): This is a chronic condition Denies family [...] 07/30/2020 10/01/2020 Hyponatremia 07/30/2020 10/01/2020 Hypoxia 10/01/2020 Immunizations Immunization Administration Dates Next Due Influenza, Quadrivalent, Hig h Dose, Preservative Free, Intrr 12/01/2023 Social History Tobacco Use Types Packs/Day Years [...] relatives? Three times a week 09/02/2023 Attends [employer]ist Services Not on file 09/02 Active Member [...] on file Legal Sex Male 11:49 PM PROP SAWYER Gender Identity Not on file Sexual Orientation [...] 03/20/2025 9:59 AM CDT Plan of Treatment Not on file Medical Devices Explanted Type Area Airline Pilot/First Officer Device Identifier Shelf Expiration Date Model / Serial / Lot [employer] 6fr 20cm Radiopaque Positioner Monofilament Tether 2 [id number] - [id number] Implanted:Qty: 1 on 09/01/2023 by Tony Conde MD at [facility] Explanted:Qty: 1 on 09/29/2023 by Levon Urbano MD Transplanted Ureter Right: Transplanted Ureter [employer] 04/06/2026 [id number] / / Procedures Procedure Name Priority Date/Time [...] 9:43 AM CDT Elevated PSA Case Notes [facility] URONAV Special Needs [facility] URONAV SURGICAL PATHOLOGY Routine 02/22/2025 9: 32 [...] Transplanted kidney EGFR Routine 01/07/2025 7:57 AM PROP SAWYER Transplanted kidney DIFFERENTIAL AUTO Routine 01/07/2025 7:5 7 AM PROP SAWYER Transplanted kidney CBC WITH AUTO DIFFERENTIAL Routine 01/07/2025 7:57 AM PROP SAWYER Transplanted kidney TACROLIMUS LEVEL, TROUGH Routine 01/07/2025 7:57 AM PROP SAWYER Transplanted kidney Encounter for long-term (current) use of high-risk medication RENAL FUNCTION PANEL Routine 01/07/2025 7:57 AM PROP SAWYER Transplanted kidney BK VIRUS PCR QUANTITATIVE Routine 01/07/2025 7:57 AM PROP SAWYER Transplanted kidney ALBUMIN CREATININE RATIO, URINE Routine 10/18/2024 8:00 AM PROP SAWYER Type 2 diabetes mellitus without complication, without long-term current use of insulin (HCC) DIABETIC EYE EXAM Routine 05/03/2024 HEPATITIS C RNA, QUANTITATIVE, PCR Routine 09/29/2023 11:03 AM PROP SAWYER Inconclusive laboratory evidence of human immunodeficiency virus (HIV) Aftercare following organ transplant PSA SCREEN Routine 08/18/2022 11:55 AM CDT End stage renal disease (HCC) COLONOSCOPY 07/31/2022 8:03 AM CDT HM DIABETES FOOT EXAM Routine 02/04/2018 from Last 3 Months or Most Recently Relevant to Health Maintenance Results * (ABNORMAL) POCT hemoglobin A1c (03/20/2025 10:03 AM CDT) Hemoglobin A1C, POC 10.2(A) 4.0 - 5.6 % Blood 03/20/2025 10:0 3 AM CDT Laura Daley NP POINT OF CARE TEST ORDERABLES F inal Result * POCT glucose (03/20/2025 10:00 AM CDT) Glucose Blood, POC 160 Normal Fasting 70 - 100, Random <200 mg/dL Blood 03/20/2025 10:0 0 AM CDT Laura Daley NP POINT OF CARE TEST ORDERABLES F inal Result * BK virus PCR quantitative Blood (02/25/2025 8:11 AM CDT) Pathologist [facility] BKV DNA result, pl Not Detected [facility] Comment: The quantifiable range of this assay is 21.5 IU/mL to 100,000,000 IU/mL (1.33 log IU/mL to 8.00 log IU/mL). Testing was performed by the LIV 6800 BKV Quantatitive Test version 2.0 ([employer] Testing performed at [facility] Current Interpretive Data was last revised on 2021. Testing performed by: [facility], [address], [place]., [address] Blood 02/25/2025 8:11 AM CDT 02/25/2025 2:21 PM CDT Narrative ALAN NEW) - 02/27/2025 11:19 AM CDT MONTHLY (EVERY 4 WEEKS) Jil Garza MD LAB MICROBIOLOGY - GENERAL ORDERABLES Final Result ALAN DUNLAP (JAYY) 1 [facility] Department [place] [address] [facility] * eGFR (02/25/2025 8:11 AM CDT) Pathologist [facility] eGFR 90 >=60 mL/min/1. 73 m2 Comment: [...] LES Final Result ALAN DUNLAP (JAYY) 1 [facility] Department [place] [address] * (ABNORMAL) Differential, auto (02/25/2025 8:11 AM CDT) Neutrophil abs 5.42 1.50 - 6.50 K/cumm Imm gran abs 0.08 0.00 - 0.10 K/cumm [facility] (JAYY) Lymphocyte abs 1.51 0.80 - 3.30 K/cumm [facility] (JAYY) Monocyte abs 1.03(H) 0.20 - 0.80 K/cumm [facility] (JAYY) Eosinophil abs 0.10 0.00 - 0.50 K/cumm [facility] (JAYY) Basophil abs 0.06 0.00 - 0.10 K/cumm [facility] (JAYY) Neutrophil pct 66.1 % [facility] (JAYY) Comment: Interpretive Data Percent cell count reference ranges are not reported, since discordance with absolute values may lead to misinterpretation of CBC data. Current Interpretive Data was last revised on 2018. Imm gran pct 1.0 % [facility] (JAYY) Comment: Interpretive Data Percent cell count reference ranges are not reported, since discordance with absolute values may lead to misinterpretation of CBC data. Current Interpretive Data was last revised on 2018. Lymphocyte pct 18.4 % [facility] (JAYY) Comment: Interpretive Data Percent cell count reference ranges are not reported, since discordance with absolute values may lead to misinterpretation of CBC data. Current Interpretive Data was last revised on 2018. Monocyte pct 12.6 % [facility] (JAYY) Comment: Interpretive Data Percent cell count reference ranges are not reported, since discordance with absolute values may lead to misinterpretation of CBC data. Current Interpretive Data was last revised on 2018. Eosinophil pct 1.2 % [facility] (JAYY) Comment: Interpretive Data Percent cell count reference ranges are not reported, since discordance with absolute values may lead to misinterpretation of CBC data. Current Interpretive Data was last revised on 2018. Basophil pct 0.7 % [facility] (JAYY) Comment: Interpretive Data Percent cell count reference ranges are not reported, since discordance with absolute values may lead to misinterpretation of CBC data. Current Interpretive Data was last revised on 2018. Blood 02/25/2025 8:11 AM CDT 02/25/2025 8:31 AM CDT us Jil Garza MD LAB BLOOD ORDERAB LES Final Result RAVIJENNIFER DUNLAP (ANAHEIM) 1 [facility] Department [place] [address] * Tacrolimus level trough (02/25/2025 8:11 AM CDT) Pathologist [facility] Tacrolimus trough 6.5 ng/mL Comment: Interpretive Data Testing performed by liquid chromatography-tandem mass spectrometry. Therapeutic concentrations vary depending on type of transplanted organ and time elapsed since transplant. Typical trough concentrations range from 5-15 ng/mL. This test was developed and its performance characteristics determined by the [facility] consistent with CLIA requirements. This test has not been cleared or approved by the [place] Food and Drug administration. Current interpretive data last reviewed 2020. Testing performed by: [facility], [address], [place]., [address] Blood 02/25/2025 8:11 AM CDT 02/25/2025 2:23 PM CDT Narrative [facility] (JAYY) - 02/26/2025 3:00 AM CDT MONTHLY (EVERY 4 WEEKS) us Jil Garza MD LAB BLOOD ORDERAB LES Final Result [facility] (JAYY) 1 [facility] Department of Laboratories [place], [place] [id number] * CBC with auto differential (02/25/2025 8:11 AM CDT) Pathologist [facility] WBC 8.20 3.80 - 9.90 K/cumm Hgb [...] RDW CV 13.8 11.1 - 14.9 % [facility] (JAYY) RDW SD 44.3 35.7 - 48.1 fL [facility] (JAYY) NRBC abs 0.00 0.00 - 0.01 K/cumm [facility] (JAYY) Blood 02/25/2025 8:11 AM CDT 02/25/2025 8:31 AM CDT Narrative ALAN DUNLAP (JAYY) - 02/25/2025 8:34 AM CDT MONTHLY (EVERY 4 WEEKS) us Jil Garza MD LAB BLOOD ORDERAB LES Final Result ALAN DUNLAP (ANAHEIM) [address] [facility] [place] [address] * Phosphorus (02/25/2025 8:11 AM CDT) Phosphorus, pl 2.8 2.3 - 4.5 mg/dL Blood 02/25/2025 8:11 AM CDT 02/25/2025 8:31 AM CDT us Jil Garza MD LAB BLOOD ORDERAB LES Final Result ALAN DUNLAP (ANAHEIM) 1 [facility] [place] [address] * Bilirubin, direct (02/25/2025 8:11 AM CDT) Bilirubin, direct <0.1 0.1 - 0.3 mg/dL Comment: Hemolysis present. Results may be affected. Slightly Hemolyzed Specimen Blood 02/25/2025 8:11 AM CDT 02/25/2025 8:31 AM CDT us Jil Garza MD LAB BLOOD ORDERAB LES Final Result ALAN DUNLAP (ANAHEIM) 1 [facility] [place] [address] * (ABNORMAL) Lipid panel (02/25/2025 8:11 AM [...] NCEP Expert Panel. Circulation 2004;110:227 3. Fletcher M et al. HALIE Cardiol. 2020 March 16;5(5):540-548. doi: 10.1001/[email or web address].2020.0013 Current Interpretive Data was last revised on 2024. Non-HDL Cholesterol 84 mg/dL ALAN NEW) Comment: Interpretive Data Ages < or = [...] last revised on 2018. Chol/HDL ratio 3 ANA CRISTINA NEW) Blood 02/25/2025 8:11 AM CDT 02/25/2025 8:31 AM CDT Narrative ALAN NEW) - 02/25/2025 9:26 AM CDT PLEASE OBTAIN NOV, FEB, MAY, AUG (1X PER MONTH) us Jil Garza MD LAB BLOOD ORDERAB LES Final Result ALAN NEW) 1 [facility] Department [place] [address] * (ABNORMAL) Comprehensive metabolic panel (02/25/2025 8:11 [...] 3.5 - 5.0 g/dL [facility] (JAYY) Alk phos 126 40 - 130 Units/L [facility] (JAYY) ALT 33 7 - 55 Units/L [facility] (JAYY) AST 22 10 - 50 Units/L [facility] (JAYY) Comment: Hemolysis present. Results may be affected. Slightly Hemolyzed Specimen Blood 02/25/2025 8:11 AM CDT 02/25/2025 8:31 AM CDT Jil Garza MD LAB BLOOD ORDERAB LES Final Result ALAN [facility] (ANAHEIM) 1 [facility] Department [place] [address] * POCT glucose (02/22/2025 10:18 AM CDT) Glucose, POC 182 70 - 199 mg/dL POC Performer [id number] [facility] Blood 02/22/2025 10:1 8 AM CDT 02/22/2025 10:18 AM CDT us Urban Farris MD LAB POCT ORDERABLES - DEVICE F inal Result ALAN [facility] [address] [facility] Department [place] [address] * Surgical pathology (02/22/2025 9:32 AM CDT) [...] Biopsy) 02/22/2025 9:50 AM CDT Narrative PATHOLOGY [facility] - 02/24/2025 10:33 AM CDT [address] [address] Tele: Aliya Cobian MD - Machine Wood Sander Note to Patients: This report may contain [...] PATHOLOGY REPORT Patient Name: OLGA WYNN Address: [address] [place] [address] Gender: M : 1975 (Age: 49) Service: Surgery Location: [place], [facility] #: [id number] Patient Type: [facility] Same Day Surgery Taken: 02/22/2025 Received 02/22/2025 [...] H. 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 Clerical Data Follows A; 51485, 80602 <CR> B; 64532, 21338 <CR> C; 27287, 02734 <CR> D; 23603, 10322 <CR> E; 28693, 09765 <CR> F; 30386, 56725 <CR> G; 49968, 25474 <CR> H; 66237, 95985, 07397 <CR> I; 64775, 96815 <CR> J; 48564, 89118 <CR> K; 00919, 16673 <CR> L; 883 REPORT IMAGES AND/OR SCANNED DOCUMENTS ONLY VIEWABLE IN PDF FORMAT The immunohistochemical test(s) cited in this report, if any, was developed and its performance characteristics determined by [facility] Pathology Department. It has not been cleared or approved by the U.S. Food and Drug Administration. The FDA has determined that such clearance or approval is not necessary. This test is used for clinical purposes. It should not be regarded as investigational or for research. [facility] Laboratory is certified under the Clinical Laboratory [...] part or completely in the following laboratories: [facility], [address] [place] [address]. Urban Farris MD LAB PATHOLOGY ORDERABLES Final Result Performing Organization Address City/[facility]/ZIP Co de Phone Number PATHOLOGY [facility] Laboratory Receiving [address] [place] [address] * POCT glucose (02/22/2025 8:48 AM CDT) Glucose, POC 115 70 - 199 mg/dL POC Performer [id number] [facility] Blood 02/22/2025 8:48 AM CDT 02/22/2025 8:48 AM CDT Urban Farris MD LAB POCT ORDERABLES - DEVICE F inal Result Performing Organization Address City/[facility]/ZIP Co de Phone Number [address] Department of Laboratories [place] [phone] * MRI PELVIS PROSTATE W WO CONTRAST [...] it. Electronically signed by: Shira Multani M.D. Urban Farris MD IMG MRI PROCEDURES Final Resul t * BK virus PCR quantitative Blood (01/28/2025 8:41 AM CDT) Pathologist [facility] BKV DNA result, pl Not Detected [facility] Comment: The quantifiable range of this assay is 21.5 IU/mL to 100,000,000 IU/mL (1.33 log IU/mL to 8.00 log IU/mL). Testing was performed by the [employer] BKV Quantatitive Test version 2.0 ([employer] Testing performed at [facility] Current Interpretive Data was last revised on 2021. Testing performed by: [facility], [address], [place]., [address] Blood 01/28/2025 8:41 AM CDT 01/28/2025 6:35 PM CDT Narrative ALAN DUNLAP (JAYY) - 01/30/2025 12:07 PM CDT MONTHLY (EVERY 4 WEEKS) Jil Garza MD LAB MICROBIOLOGY - GENERAL ORDERABLES Final Result ALAN DUNLAP (JAYY) 1 [facility] Department [place] [address] [facility] * eGFR (01/28/2025 8:41 AM CDT) Pathologist [facility] eGFR 78 >=60 mL/min/1. 73 m2 Comment: [...] BLOOD ORDERAB LES Final Result [facility]AN [facility] (ANAHEIM) 1 [facility] Department [place] [address] * Differential, auto (01/28/2025 8:41 AM CDT) Neutrophil abs 3.6 1.5 - 6.5 K/cumm Imm gran abs 0.0 0.0 - 0.1 K/cumm [facility] (JAYY) Lymphocyte abs 1.7 0.8 - 3.3 K/cumm [...] revised on 2018. Lymphocyte pct 27.3 % ANA CRISTINA DUNLAP (JAYY) Comment: Interpretive Data Percent cell count reference ranges are not reported, since discordance with absolute values may lead to misinterpretation of CBC data. Current Interpretive Data was last revised on 2018. Monocyte pct 13.1 % ALAN DUNLAP (JAYY) Comment: Interpretive Data Percent cell count reference ranges are not reported, since discordance with absolute values may lead to misinterpretation of CBC data. Current Interpretive Data was last revised on 2018. Eosinophil pct 1.4 % ANA CRISTINA DUNLAP (JAYY) Comment: Interpretive Data Percent cell count reference ranges are not reported, since discordance with absolute values may lead to misinterpretation of CBC data. Current Interpretive Data was last revised on 2018. Basophil pct 0.8 % ALAN DUNLAP (JAYY) Comment: Interpretive Data Percent cell count reference ranges are not reported, since discordance with absolute values may lead to misinterpretation of CBC data. Current Interpretive Data was last revised on 2018. Blood 01/28/2025 8:41 AM CDT 01/28/2025 8:53 AM CDT us Jil Garza MD LAB BLOOD ORDERAB LES Final Result ALAN DUNLAP (JAYY) 1 [facility] Department [place] [address] * Tacrolimus level trough (01/28/2025 8:41 AM CDT) Tacrolimus trough 5.0 ng/mL Comment: Interpretive Data Testing performed by liquid chromatography-tandem mass spectrometry. Therapeutic concentrations vary depending on type of transplanted organ and time elapsed since transplant. Typical trough concentrations range from 5-15 ng/mL. This test was developed and its performance characteristics determined by the [facility] consistent with CLIA requirements. This test has not been cleared or approved by the US Food and Drug administration. Current interpretive data last reviewed 2020. Testing performed by: [facility], [address] [facility], [place]., [address] Blood 01/28/2025 8:41 AM CDT 01/28/2025 2:16 PM CDT Narrative [facility] (JAYY) - 01/29/2025 1:52 AM CDT MONTHLY (EVERY 4 WEEKS) us Jil Garza MD LAB BLOOD ORDERAB LES Final Result [facility] (JAYY) 1 [facility] [place] [address] * CBC with auto differential (01/28/2025 8:41 AM CDT) WBC 6.3 3.8 - 9.9 K/cumm Hgb [...] RDW SD 45.3 35.7 - 48.1 fL [facility] (JAYY) NRBC abs 0.00 0.00 - 0.01 K/cumm [facility] (JAYY) Blood 01/28/2025 8:41 AM CDT 01/28/2025 8:53 AM CDT Narrative [facility] (JAYY) - 01/28/2025 9:01 AM CDT MONTHLY (EVERY 4 WEEKS) Jil Garza MD LAB BLOOD ORDERAB LES Final Result ALAN DUNLAP (JAYY) 1 [facility] Department [place] [address] * (ABNORMAL) Renal function panel (01/28/2025 8:41 AM CDT) Sodium 138 135 - 145 mmol/L Potassium, pl 4.3 3.3 - 4.9 mmol/L [facility] (JAYY) Chloride 105 97 - 110 mmol/L [facility] (JAYY) CO2 22 22 - 32 mmol/L [facility] (JAYY) Anion gap 11 2 - 15 mmol/L [facility] (JAYY) BUN 27(H) 6 - 25 mg/dL [facility] (JAYY) Creatinine 1.14 0.80 - 1.30 mg/dL [facility] (JAYY) Glucose 132 70 - 199 mg/dL [facility] (JAYY) [...] AM CDT 01/28/2025 8:53 AM CDT Narrative [facility] (JAYY) - 01/28/2025 9:34 AM CDT MONTHLY (EVERY 4 WEEKS) us Jil Garza MD LAB BLOOD ORDERAB LES Final Result ALAN NEW) 1 [facility] [place] [address] * BK virus PCR quantitative Blood (01/07/2025 7:57 AM PROP SAWYER) Pathologist [facility] [place] BKV DNA result, pl Not Detected [facility] Comment: The quantifiable range of this assay is 21.5 IU/mL to 100,000,000 IU/mL (1.33 log IU/mL to 8.00 log IU/mL). Testing was performed by the [employer] BKV Quantatitive Test version 2.0 ([employer] Testing performed at [facility] Current Interpretive Data was last revised on 2021. Testing performed by: [facility], [address] [place] [place] [address] Blood 01/07/2025 7:57 AM PROP SAWYER 01/07/2025 11:51 AM PROP SAWYER Narrative ALAN DUNLAP (JAYY) - 01/09/2025 10:23 AM PROP SAWYER MONTHLY (EVERY 4 WEEKS) us Jil Garza MD LAB MICROBIOLOGY - GENERAL ORDERABLES Final Result ALAN DUNLAP (JAYY) 1 [facility] [place] [address] [facility] * eGFR (01/07/2025 7:57 AM PROP SAWYER) Pathologist [facility] [place] eGFR 83 >=60 mL/min/1. 73 m2 Comment: [...] last reviewed 2021. Blood 01/07/2025 7:57 AM PROP SAWYER 01/07/2025 8:02 AM PROP SAWYER us Jil Garza MD LAB BLOOD ORDERAB LES Final Result [facility] (ANAHEIM) 1 [facility] Department [place] [address] * Differential, auto (01/07/2025 7:57 AM PROP SAWYER) Neutrophil abs 3.7 1.5 - 6.5 K/cumm [...] revised on 2018. Monocyte pct 12.2 % ALAN DUNLAP (JAYY) Comment: Interpretive Data Percent cell count reference ranges are not reported, since discordance with absolute values may lead to misinterpretation of CBC data. Current Interpretive Data was last revised on 2018. Eosinophil pct 1.4 % RAVINE R FABI (JAYY) Comment: Interpretive Data Percent cell count reference ranges are not reported, since discordance with absolute values may lead to misinterpretation of CBC data. Current Interpretive Data was last revised on 2018. Basophil pct 0.8 % ALAN DUNLAP (JAYY) Comment: Interpretive Data Percent cell count reference ranges are not reported, since discordance with absolute values may lead to misinterpretation of CBC data. Current Interpretive Data was last revised on 2018. Blood 01/07/2025 7:57 AM PROP SAWYER 01/07/2025 8:02 AM PROP SAWYER us Jil Garza MD LAB BLOOD ORDERAB LES Final Result ALAN DUNLAP (JAYY) 1 [facility] Department [place] [address] * Tacrolimus level trough (01/07/2025 7:57 AM PROP SAWYER) Tacrolimus trough 4.6 ng/mL Comment: Interpretive Data Testing performed by liquid chromatography-tandem mass spectrometry. Therapeutic concentrations vary depending on type of transplanted organ and time elapsed since transplant. Typical trough concentrations range from 5-15 ng/mL. This test was developed and its performance characteristics determined by the [facility] consistent with CLIA requirements. This test has not been cleared or approved by the [place] Food and Drug administration. Current interpretive data last reviewed 2020. Testing performed by: [facility], [address] [facility], [place]., [address] Blood 01/07/2025 7:57 AM PROP SAWYER 01/07/2025 11:47 AM PROP SAWYER Narrative [facility] (JAYY) - 01/07/2025 1:21 PM PROP SAWYER MONTHLY (EVERY 4 WEEKS) us Jil Garza MD LAB BLOOD ORDERAB LES Final Result [facility] (JAYY) 1 [facility] [employer] [place] [address] * CBC with auto differential (01/07/2025 7:57 AM PROP SAWYER) WBC 6.3 3.8 - 9.9 K/cumm Hgb [...] [facility] (JAYY) Blood 01/07/2025 7:57 AM PROP SAWYER 01/07/2025 8:02 AM PROP SAWYER Narrative [facility] (JAYY) - 01/07/2025 8:06 AM PROP SAWYER MONTHLY (EVERY 4 WEEKS) us Jil Garza MD LAB BLOOD ORDERAB LES Final Result [facility] (JAYY) 1 [facility] [employer] [place] [address] * (ABNORMAL) Renal function panel (01/07/2025 7:57 AM PROP SAWYER) Sodium 138 135 - 145 mmol/L Potassium, [...] (JAYY) Albumin 4.3 3.5 - 5.0 g/dL [facility]AY[facility] Blood 01/07/2025 7:57 AM PROP SAWYER 01/07/2025 8:02 AM PROP SAWYER Narrative [facility] (JAYY) - 01/07/2025 8:33 AM PROP SAWYER MONTHLY (EVERY 4 WEEKS) us Jil Garza MD LAB BLOOD ORDERAB LES Final Result ALAN [facility] (JAYY) 1 [facility] Department [place] [address] * (ABNORMAL) Albumin Creatinine Ratio, Urine (10/18/2024 8:00 AM PROP SAWYER) Pathologist [facility] [place] Albumin Ur 37.4 mg/L Comment: Interpretive Data No reference range established. Current interpretive data was last revised 2019. Creatinine Ur 59.4 mg/dL ALAN Comment: Interpretive Data No reference range established. Current interpretive data was last revised 2019. Albumin Creatinine Ratio, Ur 63(H) 1 - 29 mg/g ALAN Urine 10/18/2024 8:00 AM PROP SAWYER 10/18/2024 4:10 PM PROP SAWYER Laura Daley NP LAB URINE ORDERABLES Final Resu lt [facility] [address] [address] Department [place] [address] * (ABNORMAL) Diabetic Eye Exam (05/03/2024) 05/03/2024 Historical Provider HEALTH MAINTENANCE Final Result * Hepatitis C (HCV) RNA PCR, quantitative Blood (09/29/2023 11:03 AM PROP SAWYER) [facility] HCV RNA result Not Detected [facility] Comment: The quantifiable range of this assay is 15 IU/mL to 100,000,000 IU/mL (1.18 log IU/mL to 8.00 log IU/mL). Testing was performed by the [employer] 6800 HCV Test ([employer] Testing performed at [facility] Current Interpretive Data was last revised on 2021 Blood 09/29/2023 11:0 3 AM PROP SAWYER 09/29/2023 12:10 PM PROP SAWYER Narrative AALN [facility] - 09/30/2023 11:52 AM PROP SAWYER This is a regulatory requirement. Please do not draw before the expected date. These labs must be drawn at a specific time point. Jil Garza MD LAB MICROBIOLOGY - GENERAL ORDERABLES Final Result [facility] Department [place] [address] * PSA screen (08/18/2022 11:55 AM CDT) PSA-Total 3.64 ng/mL ALAN [facility] Comment: Interpretive Data AGE SEX REFERENCE [...] 5 AM CDT 08/18/2022 12:51 PM CDT [facility] Guillermo Marti MD LAB BLOOD ORDERABL ES Final Result Performing Organization Address City/State/[facility] Co de Phone Number [facility] Department [place] [address] * COLONOSCOPY (07/31/2022 8:03 AM CDT) Anatomical Region Laterality Modality Other Narrative Procedure Note Monica Moreau MD - 07/31/2022 8:03 AM CDT [facility] Patient Name: Olga Wynn Procedure Date: 07/31/2022 8:03 AM Date of : 1975 Admit Type: Outpatient Age: 46 Gender: Male Attending MD: Monica Moreau M.D. Room: [facility] ENDOSCOPY ROOM 1 Note Status: Finalized Patient [...] by the physician, the nurse and the shrinking machine operator in the endoscopy suite. Mental Status Examination: [...] scope was passed under direct vision. TheColonoscope [id number] was introduced through the anus and advanced [...] 8:03 AM Procedure Code(s): --- Professional --- 24449, Colonoscopy, flexible; with removal of tumor(s), polyp(s), or other lesion(s) by snare technique Diagnosis Code(s): --- Professional --- Z12.11, Encounter for screening for malignant neoplasm of colon D12.5, Benign neoplasm of sigmoid colon K57.30, Diverticulosis of large intestine without perforation orabscess without bleeding CPT copyright 2020 [employer]. All rights reserved. The codes documented in this report are preliminary and upon plain clothes police officer reviewmay be revised to meet current compliance requirements. Recognized by the [employer] for promoting quality in endoscopy Monica Moreau MD ENDOSCOPY PROCEDURES Final Resul t * DIABETES FOOT EXAM (02/04/2018) Diabetic Foot Exam Unknown Historical Provider MD HEALTH MAINTENANCE Final Result from Last 3 Months or Most Recently Relevant to Health Maintenance Insurance [facility] CHOICE PLUS MEDICARE [facility] CHOICE PLUS MEDICARE [facility] CHOICE PLUS Advance Directives For more information, please contact: [phone] * Full Code (Latest Code Status on [...] Wynn Mother Health Care Agent Care Teams Motivational Speaker Relationship Specialty Start Date End Date Edi Ash [place] [address] [place] [address] PCP - General Family Practice 03/29/18 Jonathan Meyer MD [address] [place] [address] Consulting Physician Urology 06/02/21 Claudia Rahman, anesthetic assistantGroup Home Supervisor 09/01/23
== END 2025-04-04 07:12 | disposition home or self-care (01) ==
PROVIDERS: PCP Physician Assistant; Visit Provider Urology
DX: R93.49 Abnormal radiologic findings on diagnostic imaging of other urinary organs (principal); C61 Malignant neoplasm of prostate; Z94.0 Kidney transplant status
CPT/HCPCS: 78815; A9596